=== PATIENT | male | born 1950 | race Caucasian/White ===

== ENCOUNTER 2017-08-06 12:11 | Emergency (ER) | payer MEDICARE ==
[2010-07-08 11:07] VITALS: BMI 21.7
== END 2017-08-06 14:20 | disposition home or self-care (01) ==
LOC: D.ER 12:11
DX: M54.12 Radiculopathy, cervical region (principal)

== ENCOUNTER 2019-07-26 19:14 | Inpatient (IN) | payer MEDICARE, MEDICAID ==
[~2019-07-26] VITALS: Ht 182.9 cm; Wt 77.8 kg
--- NOTE | ~2019-07-26 | HEMODYNAMI ---
PATIENT:VIBHA ZHONG MEDICAL RECORD: [id number] : 54 [id number] ADMISSION DATE: 07/27/19 Generatedon:07/29/201910:38 Patient name: VIBHA ZHONG Patient #: [id number] SSN: [id number] : 1950 Date of study: 07/29/2019 Page: Of Hemodynamic Procedure Report Patient Data Patient Demographics Procedure consent was obtained First Name: VIBHA Gender: Male Last Name: TREVIN : 1950 [facility] Initial: KIMBERLY Age: 69 year(s) Patient #: [id number] Race: SSN: [id number] Additional ID: [id number] Contact details [address]: [address] [place] [address] State: [place] City: [place] Zip code: [address] Past Medical History Performed procedures and imaging results Date Procedure Procedure Results Comments 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 History of disease Date Diagnosis Comments CAD Allergies Allergen Reaction Date Comments Reported Other allergy 07/29/2019 MORPHINE, PCN, LISINOPRIL, HYDROCORTISONE, STATINS Admission Admission Data Admission Date: 07/27/2019 Admission Time: 19:11 Arrival Date: 07/27/2019 Arrival Time: 0:00 Admit Source: Other Insurance Payor: Medicare Room #: D.2114 [facility] #: [id number] Height (in.): 71.65 BSA: 1.98 (m2) Height (cm.): 182 BMI: 23.25 (kg/m2) Weight (lbs.): 169.76 Weight (kg.): 77 Lab Results Lab Result Date: 07/29/2019 Lab Result Time: 0:00 Biochemistry Name Units Result Min Max BUN mg/dl 20 --(----)*- 7 18 Creatinine mg/dl 1.2 --(---*)-- 0.6 1.3 eGFR ml/min 64.72928 *-(----)-- 90 120 NONAFRICAN CBC Name Units Result Min Max Hematocrit % 38.9 *-(----)-- 42 54 Hemoglobin g/dl 12.9 -*(----)-- 13.5 17.5 Procedure Procedure Types Cath Procedure Diagnostic Procedure FFR/IVUS FFR Initial Sedation Charges Moderate Sedation up to 45 minutes PCI Procedure Coronary Stent Coronary Stent Initial Procedure Description Procedure Date Procedure Date: 07/29/2019 Procedure Start Time: 9:45 Procedure End Time: 10:32 Procedure Staff Name Function Dev Conway MD Performing Physician Dee Bonilla RT Monitor Jory Martínez RT Monitor Tia Greco RT Scrub Magdi Davenport RN Nurse Procedure Data Cath Procedure Fluoroscopy Diagnostic fluoroscopy Total fluoroscopy Time: time: 17.1 min 17.1 min Diagnostic fluoroscopy Total fluoroscopy dose: 438 dose: 438 mGy mGy Contrast Material Contrast Material Type Amount (ml) Isovue 300 199 Entry Location Entry Primary Successful Side Size Upsize Upsize Entry Closure Succes sful Closure Location (Fr) 1 (Fr) 2 (Fr) Remarks Device Remarks Femoral Left 7 Fr Exoseal artery Short Estimated blood loss: 10 ml Procedure Complications No complications Procedure Medications Medication Administration Route Dosage Oxygen etCO2 Nasal cannula 2 l/min Lidocaine 2% added to field 20 Heparin Flush Bag added to field 2 bags (1000units/500ml NS) 0.9% NaCl I.V. 100 ml/hr Versed I.V. 1 mg Fentanyl I.V. 50 mcg Versed I.V. 1 mg Heparin Bolus I.V. 4000 units Heparin Bolus I.V. 4000 units Integrilin (Bolus 6.8 ml 2mg/ml) Nitroglycerin IC/IA I.C. 150 mcg Versed I.V. 1 mg Hemodynamics Rest BSA: 1.98 (m2) HGB: 12.9 (g/dl) O2 Consumption: Estimated: 223.06 (ml/min) O2 Co nsumption indexed: Estimated:112.66 (ml/min/m) Heart Rate: 61 (bpm) Snapshots Pre Cath Intra NCS Post Cath Vital Signs Time Heart Resp SPO2 etCO2 NIBP Rhythm Pain Sedation Rate (ipm) (%) (mmHg) (mmHg) Status Level (bpm) 9:29:58 60 17 99 0 116/58(78) NSR 0 (11) 10(A) , No pain 9:34:10 60 17 100 0 98/55(69) NSR 0 (11) 10(A) , No pain 9:38:20 60 18 100 0 100/56(69) NSR 0 (11) 10(A) , No pain 9:42:30 62 13 100 0 116/55(82) NSR 0 (11) 9(A) , No pain 9:46:40 60 13 99 0 105/55(86) NSR 0 (11) 10(A) , No pain 9:50:52 60 13 98 0 114/55(82) NSR 0 (11) 9(A) , No pain 9:55:10 62 14 98 0 105/52(77) NSR 0 (11) 9(A) , No pain 9:59:18 59 15 99 0 100/53(67) NSR 0 (11) 9(A) , No pain 10:03:30 60 15 99 0 109/58(91) NSR 0 (11) 9(A) , No pain 10:07:44 60 15 100 0 108/50(66) NSR 0 (11) 9(A) , No pain 10:11:58 60 17 100 0 91/53(69) NSR 0 (11) 9(A) , No pain 10:16:02 62 20 99 0 98/65(73) NSR 0 (11) 9(A) , No pain 10:20:09 60 15 99 0 102/61(75) NSR 0 (11) 9(A) , No pain 10:24:21 60 35 98 0 96/50(62) NSR 0 (11) 10(A) , No pain 10:28:27 59 32 98 0 96/55(71) NSR 0 (11) 10(A) , No pain 10:32:37 60 27 99 0 85/45(63) NSR 0 (11) 10(A) , No pain Medications Time Medication Route Dose Verified Delivered Reason Notes Effectiveness by by 9:31:33 Oxygen etCO2 2 Dev [place] used for Nasal l/min 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 100 Dev [place] Per physician ml/hr Man Davenport RN 9:38:10 Versed I.V. 1 mg Dev [place] for sedation Man Davenport RN 9:38:16 Fentanyl I.V. 50 Dev [place] for sedation mcg Man Davenport RN 9:46:40 Versed I.V. 1 mg Dev [place] for sedation Man Davenport RN 9:54:43 Heparin Bolus I.V. 4000 Dev [place] for verif ied units Man Davenport RN anticoagulation with dr conway 10:00:30 Versed I.V. 1 mg Dev Méndez for sedation Man Conway MD 10:09:57 Heparin Bolus I.V. 4000 Dev [place] for verif ied units Man Davenport RN anticoagulation with dr conway 10:11:00 Integrilin 6.8 Dev [place]banks waste d (Bolus 2mg/ml) ml Man Davenport RN 3.2 ml of vial 10:12:04 Nitroglycerin I.C. 150 Dev Méndez for IC/IA mcg Man Conway MD vasodilation Procedure Log Time Note 9:10:05 Patient Height : 71.65 inches 9:10:05 Patient Weight : 169.76 lbs 9:10:19 Informed consent obtained and on chart 9:10:48 Procedure Status Urgent Heart Cath (IP). 9:10:50 Magdi Davenport RN sent for patient. Start room use. 9:10:51 Time tracking: Regular hours (M-F 7:00 - 5:00) 9:10:53 Plan of Care:Hemodynamics will remain stable., Cardiac rhythm will remain stable., Comfort level will be maintained., Respiratory function will remain adequate., Patient/ family verbilizes understanding of procedure., Procedure tolerated without complication., Recovers from procedure without complications.. 9:10:56 H&P Date Dictated: 07/29/2019 Within 30 days and on chart.. 9:11:38 Procedure type changed to Cath procedure, Diagnostic procedure, FFR/IVUS, FFR Initial, Sedation Charges, Moderate Sedation up to 45 minutes, PCI procedure, Coronary Stent, Coronary Stent Initial 9:12:48 Lab Result : BUN 20 mg/dl 9:12:48 Lab Result : Creatinine 1.2 mg/dl 9:12:48 Lab Result : eGFR NONAFRICAN 64.58755 ml/min 9:12:48 Lab Result : Hematocrit 38.9 % 9:12:48 Lab Result : Hemoglobin 12.9 g/dl 9:15:59 Stress Test: no; N/A bring Back PCI 9:16:18 Risk of Mortality: <.1 9:16:22 Risk of blood transfusion: .1 9:16:24 Risk of HUSEYIN: 1.1 9:17:32 ACC Patient presents with Stable Angina CCS Anginal Class 3--Marked limitation of physical activity, angina occurs with ordinary activity.. 9:22:22 Patient received from Med II to CCL 1 Alert and oriented. Tansferred to table in Supine position. 9:22:24 Warm blankets applied, and zana hugger turned on for patient comfort. 9:22:24 Correct patient and procedure confirmed by team. 9:22:25 ECG and BP/O2 sat monitors applied to patient. 9:23:19 Pre-procedure instructions explained to patient. 9:23:20 Pre-op teaching completed and patient verbalized understanding. 9:27:02 Family in patients room. 9:27:43 Patient allergic to Other allergyMORPHINE, PCN, LISINOPRIL, HYDROCORTISONE, STATINS 9:27:45 Is the patient allergic to Iodine/contrast media? No. 9:27:58 Is patient on blood thinner?Yes 9:28:01 ACC The patient was administered the following blood thiners within the last 24 hours: ACCPlavix 9:28:06 Patient diabetic? No. 9:28:13 Patient not . Patient is over age 55. 9:28:16 Previous problem with sedation/anesthesia? No ? 9:28:18 Snore? Yes 9:28:19 Sleep apnea? Yes 9:28:21 Deviated septum? No 9:28:51 Vital chart was started 9:30:31 Baseline sample Acquired. 9:30:35 Rhythm: sinus bradycardia 9:30:37 Full Disclosure recording started 9:30:41 Opens mouth fully? Yes 9:30:42 Sticks out tongue? Yes 9:30:55 Airway obstruction? No ? 9:30:57 Dentures? No ? 9:30:59 Pre procedure: left dorsailis pedis pulse 2+ Normal; easily identifiable; not easily obliterated 9:31:03 Patient pain scale 0/10 ?. 9:31:07 IV patent on arrival in left forearm with 0.9% NaCl at [facility]. 9:31:14 Lab results completed and on chart. 9:31:18 Left groin area was prepped with chlora-prep and draped in sterile fashion 9:31:19 Alarms reviewed by R. N. 9:31:19 Sharps counted by scrub and verified by R.N. 9:31:24 Use device set CATH PACK 9:31:25 ACIST Syringe (27830) opened to sterile field. 9:31:25 ACIST Hand Control (67754) opened to sterile field. 9:31:25 ACIST Manifold (94750) opened to sterile field. 9:31:26 Medline Cath Pack ([id number]) opened to sterile field. 9:31:26 Bag Decanter (2002) opened to sterile field. 9:31:26 EMERALD Guide Wire (065-676) opened to sterile field. 9:31:33 Oxygen 2 l/min etCO2 Nasal cannula was administered by Magdi Davenport RN; used for procedure; Verbal order read back and verified. 9:31:40 Lidocaine 2% 20ml vial added to field was administered by Dev Conway MD; for local anesthetic; Verbal order read back and verified. 9:31:45 Heparin Flush Bag (1000units/500ml NS) 2 bags added to field was administered by Dev Conway MD; used for procedure; Verbal order read back and verified. 9:31:56 SHEATH 6FR Cameron (MMH375) opened to sterile field. 9:31:57 CHOICE PT Extra Support 182cm wire ([id number]) opened to sterile field. 9:31:57 INFLATOR Merit BasixCompak (JS4980) opened to sterile field. 9:32:18 0.9% NaCl 100 ml/hr I.V. was administered by Magdi Davenport RN; Per physician; Verbal order read back and verified. 9:35:54 Physician arrived 9:35:55 --------ALL STOP TIME OUT------ 9:36:03 Final Timeout: patient, procedure, and site verified with staff and physician. All members of the team are in agreement. 9:36:07 Left groin site verified by team. 9:36:13 Fire Safety Assessment: A--An alcohol-based skin anteseptic being used preoperatively., C--Open oxygen or nitrous oxide is being used., D--An ESU, laser, or fiber-optic light is being used. 9:36:27 Physical assessment completed. ASA score P 3 - A patient with severe systemic disease as per Dev Conway MD. 9:36:34 2) 60-89 Mildly reduced kidney function, and other findings (as for stage 1) point to kidney disease. 9:36:41 Maximum allowable contrast dose (3.7 X eGFR X 0.75)178 ml. 9:36:48 Sedation plan: IV Moderate Sedation Medication:Versed, Fentanyl 9:38:10 Versed 1 mg I.V. was administered by Magdi Davenport RN; for sedation; Verbal order read back and verified. 9:38:16 Fentanyl 50 mcg I.V. was administered by Magdi Davenport RN; for sedation; Verbal order read back and verified. 9:39:22 Zero performed for pressure channel P1 9:43:00 SHEATH 7FR Cameron (QFE908) opened to sterile field. 9:43:08 GUIDE 7FR AR 2.0 SH catheter ([id number]) opened to sterile field. 9:45:10 Procedure started. 9:45:18 Local anesthetic to left femerol artery with Lidocaine 2% by Dev Conway MD.INITIAL ACCESS ONLY 9:45:45 A 7 Fr Short sheath was inserted into the Left Femoral artery 9:46:28 7 Fr AR2SH guide catheter was inserted over the wire 9:46:40 Versed 1 mg I.V. was administered by Magdi Davenport RN; for sedation; Verbal order read back and verified. 9:47:25 CHOICE PT wire advanced. 9:49:14 Wire removed. 9:49:23 Guide Catheter removed. unable to cannulate vessel. 9:49:52 GUIDE 6FR ALR1-2 catheter ([id number]) opened to sterile field. 9:50:17 6 Fr ALR12 guide catheter was inserted over the wire 9:51:31 Catheter removed. unable to cannulate vessel. 9:52:36 GUIDE 7FR ART 3.5 catheter ([id number]) opened to sterile field. 9:52:53 7 Fr ART3.5 guide catheter was inserted over the wire 9:54:43 Heparin Bolus 4000 units I.V. was administered by Magdi Davenport RN; for anticoagulation; verified with dr conway Verbal order read back and verified. 9:55:01 CHOICE PT wire advanced. 9:55:03 Wire advanced across lesion. 9:56:09 Roosevelt Verrata Plus pressure wire (05438G) opened to sterile field. 9:57:21 FFR/IFR wire advanced. 9:59:25 mRCA lesion measured at 0.88 with IFR 9:59:48 Pre PCI Site: [place] mRCA has 80% stenosis. 10:00:30 Versed 1 mg I.V. was administered by Dev Conway MD; for sedation; Verbal order read back and verified. 10:01:09 The SABINA RX 3.0 x 18 stent ([id number]) was advanced then removed because of failure to cross lesion 10:02:06 Inflate balloon Inflation number: 1 A EUPHORA 3.0 x 15 Balloon ([id number]) was prepped and advanced across the Mid RCA , then inflated to 17 TANYA for 0:10 (min:sec) . 10:02:16 Inflation number: 2 The EUPHORA 3.0 x 15 Balloon ([id number]) was reinflated across the Mid RCA , to 17 TANYA for 0:00 (min:sec) . 10:02:32 Inflation number: 3 The EUPHORA 3.0 x 15 Balloon ([id number]) was reinflated across the Mid RCA , to 21 TANYA for 0:00 (min:sec) . 10:02:56 Inflation number: 4 The EUPHORA 3.0 x 15 Balloon ([id number]) was reinflated across the Mid RCA , to 17 TANYA for 0:00 (min:sec) . 10:03:19 Inflation number: 5 The EUPHORA 3.0 x 15 Balloon ([id number]) was reinflated across the Mid RCA , to 17 TANYA for 0:00 (min:sec) . 10:03:31 Balloon removed over the wire. 10:04:45 The SABINA RX 3.0 x 18 stent ([id number]) was advanced then removed because of failure to cross lesion 10:05:54 Inflation number: 6 The EUPHORA 3.0 x 15 Balloon ([id number]) was reinflated across the Mid RCA , to 17 TANYA for 0:00 (min:sec) . 10:06:06 Inflation number: 7 The EUPHORA 3.0 x 15 Balloon ([id number]) was reinflated across the Mid RCA , to 17 TANYA for 0:00 (min:sec) . 10:06:55 Inflation number: 8 The EUPHORA 3.0 x 15 Balloon ([id number]) was reinflated across the Mid RCA , to 17 TANYA for 0:00 (min:sec) . 10:07:26 Balloon removed over the wire. 10:09:22 The SABINA RX 3.0 x 18 stent ([id number]) was advanced then removed because 10:09:57 Heparin Bolus 4000 units I.V. was administered by Magdi Davenport RN; for anticoagulation; verified with dr conway Verbal order read back and verified. 10:10:40 Inflate balloon Inflation number: 9 A EUPHORA 3.0 x 20 Balloon ([id number]) was prepped and advanced across the Mid RCA , then inflated to 13 TANYA for 0:00 (min:sec) . 10:11:00 Integrilin (Bolus 2mg/ml) 6.8 ml was administered by Magdi Davenport RN; ; wasted 3.2 ml of vial Verbal order read back and verified. 10:11:11 Balloon removed over the wire. 10:12:04 Nitroglycerin IC/IA 150 mcg I.C. was administered by Dev Conway MD; for vasodilation; Verbal order read back and verified. 10:13:41 Place stent Inflation Number: 1 A INTEGRITY RX 3.0 x 18 stent ([id number]) was prepped and advanced across the Prox RCA . The stent was deployed at 21 TANYA for 0:00 (min:sec) . 10:13:58 Stent catheter was removed intact over wire. 10:15:51 The INTEGRITY RX 2.5 x 22 stent ([id number]) was advanced then removed because of failure to cross lesion 10:17:03 Inflation number: 10 The EUPHORA 3.0 x 20 Balloon ([id number]) was reinflated across the Mid RCA , to 21 TANYA for 0:00 (min:sec) . 10:17:24 Inflation number: 11 The EUPHORA 3.0 x 20 Balloon ([id number]) was reinflated across the Mid RCA , to 21 TANYA for 0:00 (min:sec) . 10:17:51 Inflation number: 12 The EUPHORA 3.0 x 20 Balloon ([id number]) was reinflated across the Mid RCA , to 17 TANYA for 0:00 (min:sec) . 10:18:11 Balloon removed over the wire. 10:19:24 Place stent Inflation Number: 2 A INTEGRITY RX 2.5 x 22 stent ([id number]) was prepped and advanced across the Prox RCA . The stent was deployed at 23 TANYA for 0:00 (min:sec) . 10:19:36 Stent catheter was removed intact over wire. 10:21:54 Place stent Inflation Number: 13 A INTEGRITY RX 2.5 x 26 stent ([id number]) was prepped and advanced across the Mid RCA . The stent was deployed at 21 TANYA for 0:10 (min:sec) . 10:22:19 Stent catheter was removed intact over wire. 10:24:42 Place stent Inflation Number: 14 A SABINA RX 3.0 x 18 stent ([id number]) was prepped and advanced across the Mid RCA . The stent was deployed at 17 TANYA for 0:00 (min:sec) . 10:24:57 Stent catheter was removed intact over wire. 10:25:26 EXOSEAL 7Fr (EX700) opened to sterile field. 10:25:37 ACT drawn and resulted at 267 seconds. (normal therapeutic range 180-240 seconds). 10:26:00 Sheath removed intact; hemostasis achieved with Exoseal to the Left Femoral artery. 10:26:04 Procedure ended.(Physican Out) 10:26:25 Contrast amount:Isovue 300 199ml. 10:26:30 Maximum allowable dose exceeded? Yes. 10::43 Fluoroscopy time 17.10 minutes. 10::51 Flurop Dose total: 438 10::51 Fluoroscopy dose: 438 mGy 10:27:02 Dose Area Product 59626 mGy/cm. 10:27:12 Sharps counted by scrub and verified by R.N. 10:27:17 Insertion/operative site no bleeding no hematoma. 10:27:30 Post-op/insertion site Left Femoral artery dressed using a 4 x 4 and Tegaderm. 10:27:47 Post left femerol artery:stable 10:27:53 Post Procedure Pulses reassessed and unchanged 10:27:58 Post-procedure physical assessment completed. ASA score P 3 - A patient with severe systemic disease as per Dev Conway MD. 10:28:02 Post procedure rhythm: unchanged. 10:28:07 Estimated blood loss: 10 ml 10:28:09 Post procedure instruction explained to patient.Patient verbalizes understanding. 10:28:10 Patient needs reinforcement of post procedure teaching. 10:31:34 Procedure and supply charges have been captured, reviewed, submitted and are correct. 10:32:09 Procedure Complication : No complications 10:32:14 Vital chart was stopped 10:32:20 [facility] Findings: MVD- PCI performed (see procedure note) 10:32:22 Operative report dictated upon procedure completion. 10:32:23 See physician's report for complete and final results. 10:32:25 Report given to [facility] II. 10:32:29 Patient transfered to Med II with Bed. 10:32:32 Procedure ended. 10:32:32 Full Disclosure recording stopped 10:32:41 ACC-PCI Only Patient was given prescriptions, or instructed by Dev Conway MD to start/continue the following medications upon discharge: Plavix 10:36:42 End room use (Document Last) 10:37:18 End room use (Document Last) Intervention Summary Intervention Notes Time ActionType Lesion and Equipment Used Action# Pressure Duration Attributes 10:01:09 Discard SABINA RX 3.0 x Stent 18 stent ([id number]) 10:02:06 Inflate Mid RCA EUPHORA 3.0 x 1 17 00:10 balloon 15 Balloon ([id number]) 10:02:16 Reinflate Mid RCA EUPHORA 3.0 x 2 17 00:00 balloon 15 Balloon ([id number]) 10:02:32 Reinflate Mid RCA EUPHORA 3.0 x 3 21 00:00 balloon 15 Balloon ([id number]) 10:02:56 Reinflate Mid RCA EUPHORA 3.0 x 4 17 00:00 balloon 15 Balloon ([id number]) 10:03:19 Reinflate Mid RCA EUPHORA 3.0 x 5 17 00:00 balloon 15 Balloon ([id number]) 10:04:45 Discard SABINA RX 3.0 x Stent 18 stent ([id number]) 10:05:54 Reinflate Mid RCA EUPHORA 3.0 x 6 17 00:00 balloon 15 Balloon ([id number]) 10:06:06 Reinflate Mid RCA EUPHORA 3.0 x 7 17 00:00 balloon 15 Balloon ([id number]) 10:06:55 Reinflate Mid RCA EUPHORA 3.0 x 8 17 00:00 balloon 15 Balloon ([id number]) 10:09:22 Discard SABINA RX 3.0 x Stent 18 stent ([id number]) 10:10:40 Inflate Mid RCA EUPHORA 3.0 x 9 13 00:00 balloon 20 Balloon ([id number]) 10:13:41 Place stent Prox RCA INTEGRITY RX 1 21 00:00 3.0 x 18 stent ([id number]) 10:15:51 Discard INTEGRITY RX Stent 2.5 x 22 stent ([id number]) 10:17:03 Reinflate Mid RCA EUPHORA 3.0 x 10 21 00:00 balloon 20 Balloon ([id number]) 10:17:24 Reinflate Mid RCA EUPHORA 3.0 x 11 21 00:00 balloon 20 Balloon ([id number]) 10:17:51 Reinflate Mid RCA EUPHORA 3.0 x 12 17 00:00 balloon 20 Balloon ([id number]) 10:19:24 Place stent Prox RCA INTEGRITY RX 2 23 00:00 2.5 x 22 stent ([id number]) 10:21:54 Place stent Mid RCA INTEGRITY RX 13 21 00:10 2.5 x 26 stent ([id number]) 10:24:42 Place stent Mid RCA SABINA RX 3.0 x 14 17 00:00 18 stent ([id number]) Device Usage Item Name Manufacture Quantity Catalog Number Hospital Part Current Minimal Lot# / Charge Number Stock Stock Serial# Code ACIST Syringe Acist 1 25640 120833 305455 364557 20 (50554) [place] Scientific ACIST Hand Acist 1 79141 941566 089012 162804 5 Control Medical (37975) Systems Inc ACIST Manifold Acist 1 67753 731027 008914 860439 5 (89327) Medical Systems Inc Medline Cath Medline 1 [id number] 147685 40760 937731 5 Pack ([id number]) Bag Decanter Microtek 1 2001S 487171 64476 894554 5 () Medical Inc. EMERALD Guide Cardinal 1 502-455 061557 047143 544063 5 Wire (502-455) Health SHEATH 6FR Terumo 1 DYF791 863958 276042 438915 40 Cameron (GCZ168) CHOICE PT [place] 1 [id number] 286899 065343 864798 5 Extra Support Scientific 182cm wire ([id number]) INFLATOR Merit Merit 1 KT9708 849385 250796 050918 15 BasixScribeStorm Medical (CN0071) SHEATH 7FR Terumo 1 LRK247 681528 069482 172533 5 Cameron (JOG689) GUIDE 7FR AR Medtronic 1 [id number] 837401 006669 145748 0 2.0 SH catheter ([id number]) GUIDE 6FR Medtronic 1 [id number] 625811 37727 729734 1 ALR1-2 catheter ([id number]) GUIDE 7FR ART [place] 1 [id number] 488621 43385 732341 0 3.5 catheter Scientific ([id number]) Roosevelt Roosevelt 1 [id number] 320784 695842602 657122 5 Verrata Plus pressure wire ([id number]) SABINA RX 3.0 x Medtronic 1 [id number] 619735 0188711 222035 5 [id number] 18 stent ([id number]) EUPHORA 3.0 x Medtronic 1 [id number] 484587 032808 111191 5 [id number] 15 Balloon ([id number]) EUPHORA 3.0 x Medtronic 1 [id number] 037277 059118 018775 5 [id number] 20 Balloon ([id number]) INTEGRITY RX Medtronic 1 [id number] 305218 514403 587996 5 [id number] 3.0 x 18 stent ([id number]) INTEGRITY RX Medtronic 1 [id number] 437429 431627 358402 5 [id number] 2.5 x 22 stent ([id number]) INTEGRITY RX Medtronic 1 [id number] 745344 314016 753534 5 [id number] 2.5 x 26 stent ([id number]) EXOSEAL 7Fr Cardinal 1 EX700 875703 424438 951847 5 (EX700) Health Signature Audit [place] Stage Time Signature Unsigned Intra-Procedure 07/29/2019 Jory 10:37:18 AM Mauricio RT(R) (CV) Intra-Procedure 07/29/2019 Magdi Davenport RN 10:37:48 AM Intra-Procedure 07/29/2019 Dev Conway 10:38:18 AM [place] [id number] [place] [id number]
--- NOTE | ~2019-07-26 | HEMODYNAMI ---
PATIENT:VIBHA ZHONG MEDICAL RECORD: [id number] : 54 LOCATION:[facility] D.2114 [facility]# [id number] ADMISSION DATE: 07/26/19 Generatedon:07/27/201910:08 Patient name: VIBHA ZHONG Patient #: [id number] SSN: [id number] : 1950 Date of study: 07/27/2019 Page: Of Hemodynamic Procedure Report Patient Data Patient Demographics Procedure consent was obtained First Name: VIBHA Gender: Male Last Name: TREVIN : 1950 [facility] Initial: KIMBERLY Age: 69 year(s) Patient #: [id number] Race: Unknown SSN: [id number] Additional ID: [id number] Contact details Address: [address] [place] [address] State: [place] City: [place] Zip code: [address] Admission Admission Data Admission Date: 07/26/2019 Admission Time: 19:52 Arrival Date: 07/27/2019 Arrival Time: 0:00 Admit Source: Other Insurance Payor: Medicare Room #: D.2114 [facility] #: [id number] Height (in.): 71.65 BSA: 1.98 (m2) Height (cm.): 182 BMI: 23.25 (kg/m2) Weight (lbs.): 169.76 Weight (kg.): 77 Lab Results Lab Result Date: 07/27/2019 Lab Result Time: 0:00 Biochemistry Name Units Result Min Max BUN mg/dl 15 --(--*-)-- 7 18 Creatinine mg/dl 1 --(--*-)-- 0.6 1.3 CBC Name Units Result Min Max Hemoglobin g/dl 14 --(*---)-- 13.5 17.5 Procedure Procedure Types Cath Procedure Diagnostic Procedure LHC LHC w/Coronaries w/Grafts FFR/IVUS FFR Initial Sedation Charges Moderate Sedation up to 15 minutes PCI Procedure Coronary Stent Coronary Stent Initial Procedure Description Procedure Date Procedure Date: 07/27/2019 Procedure Start Time: 9:32 Procedure End Time: 10:01 Procedure Staff Name Function Linda Meier RT Monitor Dev Conway MD Performing Physician Mercedes Bhat RT Scrub Rhoda Cuevas RN Nurse Procedure Data Cath Procedure Fluoroscopy Diagnostic fluoroscopy Total fluoroscopy Time: 9.7 time: 9.7 min min Diagnostic fluoroscopy Total fluoroscopy dose: 786 dose: 786 mGy mGy Contrast Material Contrast Material Type Amount (ml) Isovue 300 152 Entry Location Entry Primary Successful Side Size Upsize Upsize Entry Closure Succes sful Closure Location (Fr) 1 (Fr) 2 (Fr) Remarks Device Remarks Femoral Right 6 Fr Exoseal artery Short Estimated blood loss: 5 ml Diagnostic catheters Device Type Used For End Catheter Placement MULTIPACK Pigtail 5 Fr LV Angiography catheter MULTIPACK JL 4.0 5Fr Left Coronary catheter Angiography MULTIPACK 3DRC 5Fr Right Coronary catheter Angiography DIAGNOSTIC AR2 MOD 5 Fr Multi-vessel catheter ([id number]) Angiography Procedure Complications No complications Procedure Medications Medication Administration Route Dosage 0.9% NaCl I.V. 100 ml/hr Oxygen etCO2 Nasal cannula 2 l/min Lidocaine 2% added to field 20 Heparin Flush Bag added to field 2 bags (1000units/500ml NS) Versed I.V. 2 mg Fentanyl I.V. 50 mcg Heparin Bolus I.V. 4000 units Fentanyl I.V. 50 mcg Hemodynamics Rest BSA: 1.98 (m2) HGB: 14 (g/dl) O2 Consumption: Estimated: 233.55 (ml/min) O2 Cons umption indexed: Estimated:117.95 (ml/min/m) Heart Rate: 75 (bpm) Snapshots Pre Cath Intra NCS Post Cath Vital Signs Time Heart Resp SPO2 etCO2 NIBP (mmHg) Rhythm Pain Status Sedation Rate (ipm) (%) (mmHg) Level (bpm) 9:11:10 73 25 97 25.7 Measuring NSR 0 (11) , No 10(A) pain 9:11:36 73 22 97 17.4 163/82(109) NSR 0 (11) , No 10(A) pain 9:15:52 67 18 95 21.2 120/68(94) NSR 0 (11) , No 10(A) pain 9:20:11 65 16 96 33.3 124/65(96) NSR 0 (11) , No 10(A) pain 9:24:29 63 16 96 34.9 136/74(115) NSR 0 (11) , No 10(A) pain 9:28:55 64 18 97 36.4 137/65(99) NSR 0 (11) , No 10(A) pain 9:33:15 66 17 97 45.5 147/74(116) NSR 0 (11) , No 9(A) pain 9:37:37 65 17 100 26.5 147/69(102) NSR 0 (11) , No 9(A) pain 9:42:00 65 18 100 12.8 128/60(99) NSR 2 (11) , 10(A) Uncomfortable 9:46:16 62 17 100 9.1 128/66(102) NSR 0 (11) , No 9(A) pain 9:50:36 61 12 98 37.9 145/73(115) NSR 0 (11) , No 9(A) pain 9:55:00 61 19 99 17.4 148/80(119) NSR 0 (11) , No 10(A) pain 9:59:26 60 30 100 25 161/74(127) NSR 0 (11) , No 10(A) pain Medications Time Medication Route Dose Verified Delivered Reason Notes Effectiveness by by 9:09:30 0.9% NaCl I.V. 100 Dev Rhoda used for ml/hr Man Cuevas pbx inspector 9:09:38 Oxygen etCO2 2 Dev Rhoda used for Nasal l/min Man Cuevas procedure cannula RN 9:09:43 Lidocaine 2% added 20ml Dev Méndez for local to vial Man Conway MD anesthetic field 9:09:48 Heparin Flush added 2 Dev Dev used for Bag to bags Man Conway MD procedure (1000units/500ml field NS) 9:30:49 Versed I.V. 2 mg Dev Rhoda for sedation Man Cuevas RN 9:30:54 Fentanyl I.V. 50 Dev Rhoda for sedation mcg Man Cuevas RN 9:36:40 Heparin Bolus I.V. 4000 Dev Rhoda for verifi ed units Man Cuevas anticoagulation with Dr. PAPA Conway 9:42:56 Fentanyl I.V. 50 Dev Rhoda for sedation [facility] Man Cuevas it program auditor Log Time Note 8:50:55 Mercedes Bhat RT(R) sent for patient. Start room use. 8:51:32 Patient Height : 71.65 inches 8:51:37 Patient Weight : 169.76 lbs 8:51:40 Admit Source: Other 8:51:45 Arrival Date: 07/27/2019 12:00:00 AM 8:53:07 Insurance Payor : Medicare 8:54:57 Lab Result : Hemoglobin 14 g/dl 8:54:57 Lab Result : Creatinine 1 mg/dl 8:54:57 Lab Result : BUN 15 mg/dl 9:00:56 Time tracking: Regular hours (M-F 7:00 - 5:00) 9:01:01 Plan of Care:Hemodynamics will remain stable., Cardiac rhythm will remain stable., Comfort level will be maintained., Respiratory function will remain adequate., Patient/ family verbilizes understanding of procedure., Procedure tolerated without complication., Recovers from procedure without complications.. 9:01:08 Patient received from IT'SUGAR II to CCL 1 Alert and oriented. Tansferred to table in Supine position. 9:01:09 Warm blankets applied, and zana hugger turned on for patient comfort. 9:01:11 Signed procedure consent form obtained from patient. 9:01:13 ECG and BP/O2 sat monitors applied to patient. 9:01:13 Correct patient and procedure confirmed by team. 9:09:21 Vital chart was started 9:09:30 0.9% NaCl 100 ml/hr I.V. was administered by Rhoda Cuevas RN; used for procedure; Verbal order read back and verified. 9:09:38 Oxygen 2 l/min etCO2 Nasal cannula was administered by Rhoda Cuevas RN; used for procedure; Verbal order read back and verified. 9:09:43 Lidocaine 2% 20ml vial added to field was administered by Dev Conway MD; for local anesthetic; Verbal order read back and verified. 9:09:48 Heparin Flush Bag (1000units/500ml NS) 2 bags added to field was administered by Dev Conway MD; used for procedure; Verbal order read back and verified. 9:09:58 Baseline sample Acquired. 9:10:11 Rhythm: sinus rhythm 9:10:13 Full Disclosure recording started 9:10:18 H&P Date Dictated: 07/27/2019 ER History on chart., New H&P dictated by physician.. 9:10:20 Pre-op teaching completed and patient verbalized understanding. 9:10:20 Pre-procedure instructions explained to patient. 9:10:28 Family unavailable. 9:10:29 Patient NPO since Midnight. 9:10:32 Is the patient allergic to Iodine/contrast media? No. 9:10:33 Was the patient premedicated? No 9:10:34 Is patient on blood thinner?Yes 9:10:38 ACC The patient was administered the following blood thiners within the last 24 hours: ACCPlavix 9:10:40 Patient diabetic? No. 9:10:43 Previous problem with sedation/anesthesia? No ? 9:10:45 Snore? Yes 9:10:46 Sleep apnea? Yes 9:10:48 Opens mouth fully? Yes 9:10:48 Deviated septum? No 9:10:50 Sticks out tongue? Yes 9:10:53 Airway obstruction? No ? 9:11:01 Dentures? No ? 9:11:05 Pre procedure: right dorsailis pedis pulse 2+ Normal; easily identifiable; not easily obliterated 9:11:08 Pre procedure: left dorsailis pedis pulse 2+ Normal; easily identifiable; not easily obliterated 9:11:12 Patient pain scale 0/10 ?. 9:11:19 IV patent on arrival in left forearm with 0.9% NaCl at KVO. 9:11:24 Lab results completed and on chart. 9:11:29 Stress Test: no; N/A ? 9:11:33 Risk of Mortality: 1.3 9:11:37 Risk of blood transfusion: 0.2 9:11:41 Risk of HUSEYIN: 3.2 9:11:46 Right groin area was prepped with chlora-prep and draped in sterile fashion 9:11:47 Sharps counted by scrub and verified by R.N. 9:11:47 Alarms reviewed by R. N. 9:16:12 2) 60-89 Mildly reduced kidney function, and other findings (as for stage 1) point to kidney disease. 9:18:06 Maximum allowable contrast dose (3.7 X eGFR X 0.75)219 ml. 9:20:19 Physician paged 9:23:37 Zero performed for pressure channel P1 9:24:18 Zero performed for pressure channel P1 9::34 --------ALL STOP TIME OUT------ 9::34 Physician arrived 9::35 Final Timeout: patient, procedure, and site verified with staff and physician. All members of the team are in agreement. 9::37 Right groin site verified by team. 9:29:41 Fire Safety Assessment: A--An alcohol-based skin anteseptic being used preoperatively., C--Open oxygen or nitrous oxide is being used., D--An ESU, laser, or fiber-optic light is being used. 9:29:45 Physical assessment completed. ASA score P 2 - A patient with mild systemic disease as per Dev Conway MD. 9:29:49 Sedation plan: IV Moderate Sedation Medication:Versed, Fentanyl 9:29:58 Use device set Femoral Dx 9:29:59 ACIST Syringe (78901) opened to sterile field. 9:30:00 Medline Cath Pack ([id number]) opened to sterile field. 9:30:00 Bag Decanter (2002S) opened to sterile field. 9:30:02 ACIST Manifold (09098) opened to sterile field. 9:30:02 ACIST Hand Control (36954) opened to sterile field. 9:30:03 Tegaderm 4 x 4 (1626W) opened to sterile field. 9:30:03 DIAGNOSTIC Multipack 5Fr catheter set (AE7078) opened to sterile field. 9:30:05 EMERALD Guide Wire (635-830) opened to sterile field. 9:30:49 Versed 2 mg I.V. was administered by Rhoda Cuevas RN; for sedation; Verbal order read back and verified. 9:30:54 Fentanyl 50 mcg I.V. was administered by Rhoda Cuevas RN; for sedation; Verbal order read back and verified. 9:32:01 PCI Cath status Urgent 9:32:04 Procedure started. 9:32:09 Local anesthetic to right femoral artery with Lidocaine 2% by Dev Conway MD.INITIAL ACCESS ONLY 9:32:47 A 6 Fr Short sheath was inserted into the Right Femoral artery 9:33:06 A MULTIPACK Pigtail 5 Fr catheter was advanced over the wire and used for LV Angiography. 9:33:28 LV hemodynamics recorded. 9:33:29 LV gram done using MORIN 9:33:34 EF : 50 % 9:34:17 Catheter removed. 9:34:22 A MULTIPACK JL 4.0 5Fr catheter was advanced over the wire and used for Left Coronary Angiography. 9:34:42 LCA angiography performed. 9:34:49 Injector settings: Ml/sec: 3, Volume: 6, 9:35:19 Catheter removed. 9:35:25 A MULTIPACK 3DRC 5Fr catheter was advanced over the wire and used for Right Coronary Angiography. 9:35:46 INFLATOR Merit BasixCompak (PA2522) opened to sterile field. 9:35:47 CHOICE PT Extra Support 182cm wire ([id number]) opened to sterile field. 9:35:57 SHEATH 6FR Sulligent (WBT772) opened to sterile field. 9:36:15 ZHOU angiography performed. 9:36:40 Heparin Bolus 4000 units I.V. was administered by Rhoda Cuevas RN; for anticoagulation; verified with Dr. Conway Verbal order read back and verified. 9:36:53 RCA angiography performed. 9:37:01 Injector settings: Ml/sec: 3, Volume: 6, 9:37:48 Catheter removed. 9:38:02 A DIAGNOSTIC AR2 MOD 5 Fr catheter ([id number]) was advanced over the wire and used for Multi-vessel Angiography. 9:39:05 SVG to Circ angiography performed. 9:40:55 ACCDominant side:Co-Dominant 9:41:36 [place] Verrata Plus pressure wire (92615D) opened to sterile field. 9:41:36 GUIDE 6FR AR 2.0 catheter ([id number]) opened to sterile field. 9:41:43 Catheter removed. 9:41:47 Proceeding to intervention. 9:42:56 Fentanyl 50 mcg I.V. was administered by Rhoda Cuevas RN; for sedation; Verbal order read back and verified. 9:43:34 6 Fr ar 2 guide catheter was inserted over the wire 9:44:20 FFR/IFR wire advanced. 9:44:39 Baseline FFR 1. 9:46:23 Wire removed. unable to get back-up support 9:46:30 Guide Catheter removed. unable to get back-up support 9:46:51 GUIDE 6FR ART 4.0 catheter ([id number]) opened to sterile field. 9:47:01 6 Fr art 4 guide catheter was inserted over the wire 9:49:40 FFR/IFR wire advanced. 9:49:45 Baseline FFR 1. 9:50:02 mCirc lesion measured at 0.92 with IFR 9:50:13 Guide catheter removed. 9:50:13 Wire removed. 9:50:42 GUIDE 6FR XB 3.5 SH catheter ([id number]) opened to sterile field. 9:51:02 6 Fr xb 3.5 sh guide catheter was inserted over the wire 9:51:10 choice pt wire advanced. 9:51:29 Pre PCI Site: [place] LMCA has 90% stenosis. 9:51:31 ACC Pre-intervention LEONOR Flow is 2. 9:54:35 Place stent Inflation Number: 1 A SABINA RX 3.0 x 08 stent ([id number]) was prepped and advanced across the LMCA 90. The stent was deployed at 19 TANYA for 0:10 (min:sec) 0. 9:54:40 ACT drawn and resulted at 228 seconds. (normal therapeutic range 180-240 seconds). 9:56:07 ACC Pre-intervention LEONOR Flow is 3. 9:56:15 Post PCI Site: [place] LMCA has 0% stenosis. 9:56:51 Stent catheter was removed intact over wire. 9:56:52 Wire removed. 9:56:58 Guide catheter removed. 9:57:06 EXOSEAL 6Fr (EX600) opened to sterile field. 9:57:29 Sheath removed intact; hemostasis achieved with Exoseal to the Right Femoral artery. 9:58:40 Procedure ended.(Physican Out) 9:58:46 Fluoroscopy time 09.70 minutes. 9:58:55 Fluoroscopy dose: 786 mGy 9:58:55 Flurop Dose total: 786 9:59:05 Dose Area Product 58415 mGy/cm. 9:59:28 Contrast amount:Isovue 300 152ml. 9:59:31 Maximum allowable dose exceeded? No. 9:59:32 Sharps counted by scrub and verified by R.N. 9:59:33 Insertion/operative site no bleeding no hematoma. 9:59:36 Post-op/insertion site Right Femoral artery dressed using a 4 x 4 and Tegaderm. 9:59:37 Post Procedure Pulses reassessed and unchanged 9:59:41 Post procedure rhythm: unchanged. 9:59:43 Estimated blood loss: 5 ml 10:00:38 Post procedure instruction explained to patient.Patient verbalizes understanding. 10:00:39 Patient needs reinforcement of post procedure teaching. 10:01:15 Procedure type changed to Cath procedure, Diagnostic procedure, LHC, LHC w/Coronaries w/Grafts, FFR/IVUS, FFR Initial, Sedation Charges, Moderate Sedation up to 15 minutes, PCI procedure, Coronary Stent, Coronary Stent Initial 10:01:16 Procedure and supply charges have been captured, reviewed, submitted and are correct. 10:01:22 Procedure Complication : No complications 10:01:25 Vital chart was stopped 10:01:29 [facility] Findings: MVD- PCI performed (see procedure note) 10:01:31 Operative report dictated upon procedure completion. 10:01:32 See physician's report for complete and final results. 10:01:34 Report given to Med II. 10:01:36 Patient transfered to Med II with Stretcher. 10:01:38 Full Disclosure recording stopped 10:01:38 Procedure ended. 10:01:45 ACC-PCI Only Patient was given prescriptions, or instructed by Dev Conway MD to start/continue the following medications upon discharge: Plavix 10:01:47 End room use (Document Last) Intervention Summary Intervention Notes Time ActionType Lesion and Equipment Used Action# Pressure Duration Attributes 9:54:35 Place stent LMCA SABINA RX 3.0 x 1 19 00:10 08 stent ([id number]) Device Usage Item Name Manufacture Quantity Catalog Number Hospital Part Current Minimal Lot# / Charge Number Stock Stock Serial# Code ACIST Syringe Acist 1 19953 952585 131721 740248 20 (92754) Medical Systems Inc Bag Decanter Microtek 1 086942 07071 143341 5 () Medical Inc. Medline Cath Medline 1 [id number] 620277 80068 078588 5 Pack ([id number]) ACIST Hand Acist 1 35916 286063 113263 334248 5 Control Medical (01807) Systems Inc ACIST Manifold Acist 1 94073 369958 517705 425166 5 (44680) Medical Systems Inc DIAGNOSTIC Cardinal 1 [id number] 122858 98201 344547 30 Multipack 5Fr Health catheter set (BD7553) Tegaderm 4 x 4 3M 1 1626W 395838 590802 913796 5 (1626W) EMERALD Guide Cardinal 1 502-455 865255 797825 267448 5 Wire (502-455) Health MULTIPACK Cardinal 1 979543 5 Pigtail 5 Fr Health catheter MULTIPACK JL Cardinal 1 305415 5 4.0 5Fr Health catheter MULTIPACK 3DRC Cardinal 1 811507 5 5Fr catheter Health INFLATOR Merit Merit 1 OY3520 321549 946648 263792 15 Boundless (WG2711) CHOICE PT [place] 1 [id number] 431465 621603 128248 5 Extra Support Scientific 182cm wire ([id number]) SHEATH 6FR Terumo 1 EPY835 190530 022978 223320 40 Sulligent (JKS176) DIAGNOSTIC AR2 Cardinal 1 [id number] 266629 732555 750147 20 MOD 5 Fr Health catheter (366571K) GUIDE 6FR AR Medtronic 1 [id number] 832861 33758 589701 1 2.0 catheter (IU5HC11) [place] 1 65350X 303269 716323139 134479 5 Verrata Plus pressure wire (68924U) GUIDE 6FR ART [place] 1 [id number] 755503 101295 302157 0 4.0 catheter Scientific (200819181) GUIDE 6FR XB Cardinal 1 [id number] 055808 167522 580557 2 3.5 SH Health catheter (98698084) SABINA RX 3.0 x Medtronic 1 [id number] 338323 3021451 763319 5 [id number] 08 stent ([id number]) EXOSEAL 6Fr Cardinal 1 EX600 179176 943281 765092 10 (EX600) Health Signature Audit [place] Stage Time Signature Unsigned Intra-Procedure 07/27/2019 Linda Meier 10:07:00 AM RT(R) Intra-Procedure 07/27/2019 Rhoda Cuevas 10:08:20 AM RN Intra-Procedure 07/27/2019 Dev Conway 10:08:55 AM [place] [address] [place] [address]
[2019-07-26 19:41] LABS: BASOPHILS 0.4 % (0-2); EOSINOPHILS 8.7 % (0-7); HEMATOCRIT 40.6 % (42.0-54.0); IMMATURE GRANULOCYTES 0.2 % (0-5); LYMPHOCYTES 8.9 % (15-50); MCH 30.9 pg (26.0-34.0); MCHC 34.5 g/dL (31.0-37.0); MCV 89.6 fL (80.0-100.0); MEAN PLATELET VOLUME 8.3 fL (7.4-10.4); MONOCYTES 8.1 % (2-11); NEUTROPHILS 73.7 % (40-80); RBC 4.53 10x6/uL (4.20-6.10); RDW 12.6 % (11.5-14.5); WBC 12.4 10x3/uL (4.8-10.8)
[2019-07-26 19:43] LABS: PLATELET COUNT 194 10x3/uL (130-400)
[2019-07-26 19:51] LABS: CALC OSMOLALITY 252 mosm/kg (275-300); CALCIUM 8.7 mg/dL (8.5-10.1); CARBON DIOXIDE 22.7 mmol/L (21.0-32.0); CHLORIDE - SERUM 91 mmol/L (98-107); GLUCOSE 99 mg/dL (74-106); POTASSIUM - SERUM 4.4 mmol/L (3.5-5.1); SODIUM 125 mmol/L (136-145); UREA NITROGEN 15 mg/dL (7-18); eGFR NON AFRICAN AMERICAN 79 mL/min (90-120)
[2019-07-26 20:02] LABS: APPEARANCE CLEAR (CLEAR); BILIRUBIN NEGATIVE (NEGATIVE); COLOR YELLOW (YELLOW); GLUCOSE NEGATIVE (NEGATIVE); KETONE NEGATIVE (NEGATIVE); NITRITE NEGATIVE (NEGATIVE); PROTEIN NEGATIVE (NEGATIVE); UROBILINOGEN NORMAL (NORMAL)
[2019-07-26 20:06] LABS: ALBUMIN 3.7 g/dL (3.4-5.0); ALKALINE PHOSPHATASE 188 U/L (46-116); ALT (SGPT) 30 U/L (10-68); BILIRUBIN - TOTAL 0.43 mg/dL (0.2-1.3); LIPASE 140 U/L (73-393); MAGNESIUM - SERUM 1.8 mg/dL (1.8-2.4); PRO BNP 789 pg/mL (0-125); PROTEIN - SERUM 8.2 g/dL (6.4-8.2); THYROID STIMULATING HORMONE 4.04 uIU/mL (0.36-3.74); TROPONIN-I 0.043 ng/mL (0.000-0.060)
[2019-07-26 20:16] LABS: UDS - AMPHET NEGATIVE QUAL (NEGATIVE); UDS - BARB NEGATIVE QUAL (NEGATIVE); UDS - BENZO NEGATIVE QUAL (NEGATIVE); UDS - COCAINE NEGATIVE QUAL (NEGATIVE); UDS - OPIATE NEGATIVE QUAL (NEGATIVE); UDS - PCP NEGATIVE QUAL (NEGATIVE); UDS - THC NEGATIVE QUAL (NEGATIVE)
--- NOTE | 2019-07-26 20:17 | NUR ---
PT GIVEN WATER TO DRINK, DENIES ANY FURTHER NEEDS AT THIS TIME. CALL LIGHT WITHIN REACH, WILL CONTINUE TO MONITOR.
[2019-07-27] VITALS (7 sets, daily range): BP systolic 117–176; BP diastolic 64–96; BMI 23.1
--- NOTE | 2019-07-27 00:38 | NUR ---
RECIEVED REPORT FROM ER. BROUGHT TO FLOOR IN W/C. ALERT AND ORIENTED X4. UP AD ZORAIDA. DENIES ANY PAIN AT THIS TIME. PACEMAKER TO RIGHT CHEST. 02 @2 LITERS PER N/C IN PLACE. IV TO LEFT AC SL. TELEMETRY 58 SR WITH BBB. C/O SEVERE HEAD ACHE EARLIER. CALLED DR. NEELY WITH NEW ORDER FOR NORCO .PT STATES THATS WHAT HE NORMALLY TAKES FROM PAIN CLINIC. REPORTED RELIEF. DENIES ANY OTHER NEEDS AT THIS TIME.
[2019-07-27] MEDS ORDERED: NORVASC10 MG PO (00:46)
[2019-07-27] MEDS ORDERED: COREG25 MG PO (00:47)
[2019-07-27] MEDS ORDERED: ASPIRIN81 MG PO (00:47)
[2019-07-27] MEDS ORDERED: PLAVIX75 MG PO (00:47)
[2019-07-27] MEDS ORDERED: ZETIA10 MG PO (00:49)
[2019-07-27] MEDS ORDERED: HYDROCODON-ACE1 EA10 PO (00:50)
[2019-07-27] MEDS ORDERED: ANORO ELLIPTA1 EACH INH (00:51)
[2019-07-27] MEDS ORDERED: ALBUTEROL SULF8.5 GM INH (00:51)
--- NOTE | 2019-07-27 08:55 | NUR ---
PRE OP GIVEN FOR CATH
--- NOTE | 2019-07-27 10:43 | NUR ---
BACK FROM RELATIONSHIP EXECUTIVE. SEDATED BUT RESPONDS TO NAME. TELEMERTY SHOWS SR 60. RIGHT GROIN SOFT WITH DRSG DRY AND INTACT. PPP. WILL MONITOR
--- NOTE | 2019-07-27 17:27 | NUR ---
LYING QUIETLY. DENIES ANY NEEDS. RIGHT GROIN SOFT WITH DRSG DRY AND INTACT
--- NOTE | 2019-07-27 17:29 | MORECARE ---
CASE MANAGEMENT DISCHARGE SUMMARY PATIENT: VIBHA ZHONG UNIT: [id number] ADM DATE: 07/26/19 AGE: 69 : 52 SEX: M ROOM/BED: D.2114 AUTHOR: KATHRYN CÁRDENAS PHYSICIAN: REFERRING PHYSICIAN: GURWINDER NEELY MD DATE OF SERVICE: 07/27/19 Discharge Plan Patient Name: VIBHA ZHOGN [facility] [facility] 1950 Planned Disposition: Anticipated Discharge Date: Discharge Date: Expected LOS: Initial Reviewer: [email or web address] Initial Review Date: 07/26/2019 Generated: 07/27/19 6:28 pm External Providers External Provider: OTHER-OTHER Next Contact Date: Service Request Date: Service Type: Resolution: Reviewer: Comments: Patient Name: VIBHA ZHONG Page [phone] at 1729 All edits/amendments must be made on the electronic document DICTATION DATE: 07/27/191727 INTERPRETER TRANSLATOR: CHERY 07/27/191727 RPT#: [id number] DC DATE: STATUS: ADM IN [facility] [address] [place] [address] END OF REPORT
--- NOTE | 2019-07-27 19:06 | NUR ---
RECIEVED BEDSIDE SHIFT REPORT. ALERT AND ORIENTED X4. UP AD ZORAIDA TO B/R. IV TO LEFT AC. PACEMAKER TO RIGHT CHEST AND TELEMETRY IN PLACE. DSG TO JAELYN ROBLERO. DENIES ANY NEEDS A THIS TIME.
[2019-07-28 04:05] VITALS: BP 124/69
--- NOTE | 2019-07-28 07:55 | NUR ---
ALERT AND ORIENTED. C/O PAIN AND COUGHING. TREATED WITH NORCO AND GUIFENSIN COUGHT SYRUP. TELEMERTY SHOWS SR 63. PACER TO RIGHT CHEST. RIGHT GROIN DRSG DRY AND INTACT. UP AB ZORAIDA.LEFT AC SL. WILL MONITOR
[2019-07-28 08:08] VITALS: BP 148/73
[2019-07-28 09:55] LABS: BASOPHILS 0.3 % (0-2); EOSINOPHILS 4.6 % (0-7); HEMATOCRIT 38.9 % (42.0-54.0); HEMOGLOBIN 12.9 g/dL (13.5-17.5); IMMATURE GRANULOCYTES 0.1 % (0-5); LYMPHOCYTES 14.8 % (15-50); MCH 30.6 pg (26.0-34.0); MCHC 33.2 g/dL (31.0-37.0); MEAN PLATELET VOLUME 8.4 fL (7.4-10.4); MONOCYTES 10.1 % (2-11); NEUTROPHILS 70.1 % (40-80); PLATELET COUNT 177 10x3/uL (130-400); RBC 4.21 10x6/uL (4.20-6.10); RDW 12.9 % (11.5-14.5)
[2019-07-28 09:56] LABS: MCV 92.4 fL (80.0-100.0); WBC 7.8 10x3/uL (4.8-10.8)
[2019-07-28 10:07] LABS: ANION GAP 7.8 mmol/L (8-16); CALCIUM 8.4 mg/dL (8.5-10.1); CREATININE - SERUM 1.2 mg/dL (0.6-1.3); POTASSIUM - SERUM 4.6 mmol/L (3.5-5.1)
[2019-07-28 10:08] LABS: CARBON DIOXIDE 30.8 mmol/L (21.0-32.0)
[2019-07-28 11:44] VITALS: BP 137/68
[2019-07-28 16:27] VITALS: BP 147/76
--- NOTE | 2019-07-28 17:07 | NUR ---
I have reviewed this patient and I concur with the Shift Assessment completed by the Licensed Practical Nurse today this shift.
--- NOTE | 2019-07-28 19:04 | NUR ---
RECIEVED BEDSIDE SHIFT REPORT. ALERT AND ORIETNED X4. WEARING O2 PER N/C. VERY SOB. ASKED HIM TO PUT HIS BIPAP ON AND HE SAID IN A LITTLE WHILE. USING AXILLARY MUSCLES TO BREATH AND VERY SOB. IV TO LEFT AC SL.. PACEMAKER TO RIGHT CHEST AND DSG TO RIGHT GROIN CDI. DENIES ANY OTHER NEEDS AT THIS TIME.
[2019-07-28 20:20] VITALS: BP 175/79
[2019-07-29 00:37] VITALS: BP 110/76
--- NOTE | 2019-07-29 00:41 | NUR ---
RESTING IN BED WITH EYES CLOSED. CPAP IN PLACE. RESP EVEN AND UNLABORED AT THIS TIME.
[2019-07-29 04:30] VITALS: BP 188/90
[2019-07-29 07:57] VITALS: BP 144/69
--- NOTE | 2019-07-29 09:17 | NUR ---
PRE-OPS GIVEN. TO MANAGER ANALYSIS BY BED.
--- NOTE | 2019-07-29 10:55 | NUR ---
BACK FROM SPECIALIST MANAGERS. VS WNL. LEFT GROIN STABLE WITHOUT BLEEDING OR HEMAYOMA NOTED. WILL MONITOR.
[2019-07-29 11:37] VITALS: BP 108/69
[2019-07-29 12:28] VITALS: Ht 182.9 cm; Wt 77.8 kg
[2019-07-29 13:28] LABS: BASOPHILS 0.3 % (0-2); EOSINOPHILS 3.7 % (0-7); HEMATOCRIT 33.8 % (42.0-54.0); HEMOGLOBIN 11.1 g/dL (13.5-17.5); IMMATURE GRANULOCYTES 0.2 % (0-5); MCH 30.1 pg (26.0-34.0); MCHC 32.8 g/dL (31.0-37.0); MCV 91.6 fL (80.0-100.0); MEAN PLATELET VOLUME 8.8 fL (7.4-10.4); MONOCYTES 11.5 % (2-11); NEUTROPHILS 66.3 % (40-80); PLATELET COUNT 146 10x3/uL (130-400); RBC 3.69 10x6/uL (4.20-6.10); RDW 12.8 % (11.5-14.5); WBC 6.4 10x3/uL (4.8-10.8)
[2019-07-29 13:48] LABS: ANION GAP 10.3 mmol/L (8-16); CALCIUM 7.9 mg/dL (8.5-10.1); CHOL - HDL RATIO 3.2 ratio (2.3-4.9); CREATININE - SERUM 1.2 mg/dL (0.6-1.3); LDL-HDL RATIO 1.9 ratio (1.5-3.5)
[2019-07-29 13:49] LABS: POTASSIUM - SERUM 5.3 mmol/L (3.5-5.1)
--- NOTE | 2019-07-29 13:50 | NUR ---
BED REST UP. GROIN STABLE.
[2019-07-29 15:31] VITALS: BP 115/60
[2019-07-29 20:41] VITALS: BP 146/73
[2019-07-30 00:58] VITALS: BP 134/78
[2019-07-30 04:49] VITALS: BP 132/67
[2019-07-30 06:16] LABS: BASOPHILS 0.3 % (0-2); HEMATOCRIT 32.7 % (42.0-54.0); HEMOGLOBIN 10.7 g/dL (13.5-17.5); IMMATURE GRANULOCYTES 0.3 % (0-5); LYMPHOCYTES 11.8 % (15-50); MCH 30.2 pg (26.0-34.0); MCHC 32.7 g/dL (31.0-37.0); MCV 92.4 fL (80.0-100.0); MEAN PLATELET VOLUME 8.9 fL (7.4-10.4); MONOCYTES 7.4 % (2-11); NEUTROPHILS 74.2 % (40-80); PLATELET COUNT 171 10x3/uL (130-400); RBC 3.54 10x6/uL (4.20-6.10); RDW 12.5 % (11.5-14.5)
[2019-07-30 06:26] LABS: WBC 11.6 10x3/uL (4.8-10.8)
[2019-07-30 06:28] LABS: ANION GAP 9.3 mmol/L (8-16); CALCIUM 8.3 mg/dL (8.5-10.1); CARBON DIOXIDE 30.1 mmol/L (21.0-32.0); CREATININE - SERUM 1.3 mg/dL (0.6-1.3)
[2019-07-30 06:35] LABS: POTASSIUM - SERUM 4.4 mmol/L (3.5-5.1)
[2019-07-30 09:14] VITALS: BP 160/77
--- NOTE | 2019-07-30 13:30 | NUR ---
IV RESTARTED TO RIGHT ARM WITH 22 GAUGE CATH X 1 STICK AND FLUSHED WITH NS. LINE IS PATENT.
--- NOTE | 2019-07-30 14:17 | NUR ---
GOWN AND LINEN CHANGED. ASSISTED UP TO AMBLATE ON 02 4L NC. SOB NOTED ON EXERTION. WILL CONT. TO MONITOR.
[2019-07-30 15:22] VITALS: BP 116/69
[2019-07-30 15:27] VITALS: BP 117/31
--- NOTE | 2019-07-30 19:00 | NUR ---
RECEIVED BEDSIDE REPORT. PATIENT IS ALERT AND ORIENTED RESTING COMFORTABLY IN BED. RESPIRATIONS ARE EVEN AND UNLABORED. PATIENT REMAINS ON 4L NC. NO S/S OF DISTRESS. NO C/O PAIN. CALL LIGHT WITHIN REACH. WILL CPOC.
[2019-07-30 20:00] VITALS: BP 112/42
[2019-07-31] VITALS: BP 134/54
[2019-07-31 04:00] VITALS: BP 142/68
[2019-07-31 08:00] VITALS: BP 152/54
--- NOTE | 2019-07-31 11:07 | NUR ---
TELEMETRY PACED. RESP UL ON 02 4L NC. UP IN CHAIR WITH CALL LIGHT IN REACH. WILL CONT. PLAN OF CARE.
[2019-07-31 11:36] VITALS: BP 115/50
--- NOTE | 2019-07-31 14:07 | HP ---
PATIENT: VIBHA ZHONG MEDICAL RECORD: [id number] ACCOUNT: [id number] LOCATION:[address] : 54 ADMISSION DATE: 07/27/19 PCP: SAMEERA MIXON MD HISTORY AND PHYSICAL EXAMINATION ADMITTING DIAGNOSES: 1. Unstable angina. 2. Coronary artery disease. 3. Status post coronary artery bypass graft surgery. 4. Status post recent cardiac catheterization with 80% stenosis, not fixed. 5. Hypertension. 6. Hyperlipidemia. 7. Chronic obstructive pulmonary disease. 8. Past smoking history. 9. Bronchitis. HISTORY OF PRESENT ILLNESS: Mr. Zhong presents with increasing episodes of chest pain, class IV angina with rest pain. He has a cardiac history of bypass surgery in 2003, four stents since then. He underwent cardiac catheterization a week and a half ago at [facility]. He was told by Dr. Lee that he has an 80% stenosis and that it would be fixed in the future. Why it was not fixed then, we do not know. He has continued to have chest pain compatible with typical anginal pain with a dull aching, heavy elephant like sensation on his anterior chest that has progressed. He is having episodes of rest pain. As an aside, he also has had cough with sputum production, has not been placed on any antibiotics. He does have a history of COPD. His sputum production is overall minimal yellow tinged. He has not been febrile. His troponin is increasing. He continues to have episodes of pain. PHYSICAL EXAMINATION: CONSTITUTIONAL/GENERAL APPEARANCE: Well nourished, well developed, appears stated age. EYES: Lids and conjunctivae noninjected. No discharge. No pallor. ENT: Lips within normal limit. No cyanosis. No pallor. NECK: Carotid arteries, bilateral normal upstroke. No bruits. No thrills. No jugular venous pressure or distention. CERVICAL LYMPH NODES: Nontender. Nonenlarged. THYROID: Not enlarged. No nodules. CARDIOVASCULAR: Precordial exam, nondisplaced. No heaves or pericardial thrills. Rate and rhythm, regular. Heart sounds, normal S1, normal S2. No S3, no gallop, no rub. Systolic murmur, not heard. Diastolic murmur, not heard. RESPIRATORY: Respiratory effort, unlabored. Normal curvature. No thoracic deformity. No chest wall tenderness. Percussion, resonant. Auscultation, clear. No wheezes, no rales, no rhonchi. ABDOMEN: Soft, nondistended, nontender. No abdominal pain, no vomiting and normal appetite. MUSCULOSKELETAL: No joint tenderness, normal gait, normal tone. SKIN: Warm and dry. OVERALL IMPRESSION: Unstable angina class IV in a patient with a past history of coronary artery disease, stenting and known 80% stenosis. We will proceed with coronary angiography. Further care depends upon findings of the angiography. TRANSINT:[id number] Voice Confirmation ID: [id number] DOCUMENT ID: [id number] HISTORY AND PHYSICAL [id number] VIBHA ZHONG, GURWINDER RICKETTS at 1407 CC: [id number] DICTATION DATE: 07/27/19840 SUPERVISOR C[employer] HOUSE: 07/27/19 0903 ADM IN [facility] [address] [place] [address]
--- NOTE | 2019-07-31 14:07 | OP ---
PATIENT NAME: VIBHA ZHONG MEDICAL RECORD: [id number] :54 LOCATION:D.M2 D.2114 ADMISSION DATE:07/27/19 SURGEON: GURWINDER NEELY MD DATE OF OPERATION: 07/27/2019 PROCEDURES: 1. PTCA and stent of left main. 2. Left heart catheterization. 3. Selective coronary angiography. 4. Vein graft angiography. 5. ZHOU angiography. 6. IFR. 7. Left ventriculogram. INDICATIONS: Unstable angina and coronary artery disease. PROCEDURE PERFORMED: After informed consent was obtained and detailed explanation of risks, benefits as well as alternative therapies, the patient elected to proceed with angiogram and angioplasty. The right femoral area was prepped and draped in normal sterile fashion. Right femoral artery was cannulated via modified Seldinger technique with placement of 6-Syriac sheath. All catheters exchanged through this sheath. FINDINGS: Left ventriculogram was performed in standard 30-degree MORIN view, reveals preserved cardiac wall motion, ejection fraction 50% to 55%. SELECTIVE CORONARY ANGIOGRAPHY: 1. Left main is 90% stenosed. This leads into a left circumflex that is nongrafted. 2. The obtuse marginal of circumflex is totally occluded. 3. Vein graft to the circumflex obtuse marginal is widely patent. There is a previously placed stent. There was questionable area of restenosis; however, IFR was normal at 0.96. 4. Left anterior descending is totally occluded. 5. ZHOU to the LAD is widely patent. Distal LAD is widely patent. 6. The right coronary has 80% to 85% stenosis in the mid vessel. There is a previously placed stent proximally not allowing good apposition for any catheter to engage this. 7. Vein graft to the RCA is closed. PTCA AND STENT OF THE LEFT MAIN: Stent used is a 3.0 x 9-mm Claridge. Result was 0% residual stenosis. OVERALL IMPRESSION: Successful PTCA and stent of the left main going from 90% initial stenosis to 0% residual. PLAN: Plan for repeat coronary angiography of the RCA attempting to get a guide into this proximal aspect of the vessel for transcatheter revascularization of the mid vessel. TRANSINT:[id number] Voice Confirmation ID: [id number] DOCUMENT ID: [id number] OPERATIVE REPORT [id number] TREVINVIBHA JEFFREY MD at 1407 CC: [id number] DICTATION DATE: 07/27/19 1133 SENIOR CONTRACTS ADMINISTRATOR: 07/27/19 1223 ADM IN [place] [id number] [place] [address]
--- NOTE | 2019-07-31 14:08 | OP ---
PATIENT NAME: VIBHA ZHONG MEDICAL RECORD: [id number] :54 LOCATION:D.M2 D.2114 ADMISSION DATE:07/27/19 SURGEON: GURWINDER NEELY MD DATE OF OPERATION: 07/29/2019 PROCEDURES: 1. PTCA stent RCA. 2. IFR. 3. Selective coronary angiography. INDICATION: Unstable angina and coronary artery disease. PROCEDURE IN DETAIL: After informed consent was obtained and after a detailed description of the risks, benefits as well as alternative therapies, the patient elected to proceed with angiogram and angioplasty. The left femoral area was prepped and draped in normal sterile fashion. Left femoral artery was cannulated via modified Seldinger technique with placement of 7-Taiwanese sheath. All catheters exchanged through this sheath. FINDINGS: The right coronary artery has multiple areas of 80% stenosis. IFR was abnormal at 0.83. Stenting was undertaken with a 3.0 x 18, 3.0 x 15, 2.5 x 22, 2.5 x 26 mixed between [place] and Integrity stents. Result was 0% residual stenosis. OVERALL IMPRESSION: Successful percutaneous transluminal coronary angioplasty stent of the right coronary artery going from multiple areas of 80% stenosis to 0% residual. TRANSINT:[id number] Voice Confirmation ID: [id number] DOCUMENT ID: [id number] GURWINDER NEELY MD at 1408 CC: [id number] DICTATION DATE: 07/29/19 1030 RIVETER AUTOMOBILE BRAKES: 07/29/19 1045 [place] [address]
[2019-07-31 15:53] VITALS: BP 136/57
--- NOTE | 2019-07-31 16:44 | NUR ---
Rehab Note- Acute Inpatient REhab prescreen order received. THe patient has [facility] insurance and would require a PreAuth. Per PT note- the patient requires no skilled physical therapy needs at this time. THe patient is too functional for acute inpatient rehab at this time. Thank you fot this referral! Nelly Tinoco RN Clinical Liaison, [facility]
--- NOTE | 2019-07-31 17:26 | MORECARE ---
CASE MANAGEMENT DISCHARGE SUMMARY PATIENT: VIBHA ZHONG UNIT: [id number] ADM DATE: 07/27/19 AGE: 69 : 52 SEX: M ROOM/BED: D.0071 AUTHOR: AVI,DOC PHYSICIAN: REFERRING PHYSICIAN: GURWINDER NEELY MD DATE OF SERVICE: 07/31/19 Discharge Plan Patient Name: VIBHA ZHONG Facility: [facility]:[place] : 1950 Planned Disposition: Home Anticipated Discharge Date: 08/02/19 Discharge Date: Expected LOS: 6 Initial Reviewer: [id number] Initial Review Date: 07/26/2019 Generated: 07/31/19 6:25 pm Comments DCP- Discharge Planning Updated by [id number]: Hans Banda on 07/31/19 4:[address] Patient Name: VIBHA ZHONG Admission Status: ER Accout number: [id number] Admission Date: 07-27-2019 : 1950 Admission Diagnosis: Attending: NONA NEELY Current LOS: 4 Anticipated DC Date: 08-02-2019 Planned Disposition: Home Primary Insurance: [facility] MEDICARE SOLUTIONS Discharge Planning Comments: CM RECEIVED ORDER FOR OXYGEN TESTING PRIOR TO DISCHARGE AND TO ARRANGE OXYGEN IF PT QUALIFIES. CM MET WITH PT IN ROOM TO DISCUSS DISCHARGE PLANNING AND NEEDS. PT REPORTS LIVING AT HOME INDEPENDENTLY WITH HIS SON AND DAUGHTER IN LAW. PT HAS NEBULIZER FROM [facility]. PT HAS NO OUTSIDE SERVICES ASSISTING IN THE HOME. CM DISCUSSED AVAILABILITY OF HOME HEALTH, REHAB SERVICES AND MEDICAL EQUIPMENT. IF HE NEEDS HOME OXYGEN, HE WANTS TO USE [facility], CHOICE SIGNED. PT DENIES FURTHER DISCHARGE NEEDS, REPORTS HIS SIGNIFICANT OTHER OR SON WILL PICK HIM UP FOR DISCHARGE HOME. IMPORTANT MESSAGE FROM MEDICARE PROVIDED AND EXPLAINED. CM SPOKE TO DR. CLEMONS WHO ANTICIPATES DISCHARGE ON MONDAY. PT NEEDS HOME OXYGEN TESTING TOMORROW, 08-01-19. CM TO FOLLOW UP AND ORDER OXYGEN FROM [facility] IF PT HAS QUALIYING TESTING. Wastewater Analyst Lab Analyst: Hans Banda DCPIA - Discharge Planning Initial Assessment Updated by [id number]: Hans Banda on 07/31/19 5:18 pm * Is the patient Alert and Oriented? Yes * How many steps to enter\exit or inside your home? * PCP DR[address], [address] [facility] * Pharmacy [facility], [address] [facility] * Preadmission Environment Home with Family * ADLs Independent * Equipment Nebulizer * Other Equipment [facility] - MEDICAL EQUIPMENT PROVIDER * List name and contact numbers for known caregivers / representatives who currently or will assist patient after discharge: JORGE ALBERTO CLAYTON, SIGNIFICANT OTHER, * Community resources currently utilized None * Please name any agencies selected above. NONE * Additional services required to return to the preadmission environment? No * Can the patient safely return to the preadmission environment? Yes * Has this patient been hospitalized within the prior 30 days at any hospital? Yes Coverage Notice Reviewer: [id number] Banda Notice Issued Date-Time: 07/31/2019 9:30 Notice Type: Patient Choice Letter Notice Delivered To: Patient Relationship to Patient: Color Room Attendant Name: Delivery Method: HAND - Hand Delivered Iman Days: Prior Verbal Notification: Recipient Understood Notice: Yes Recipient Signature: Yes Med Rec Note Co-signed by Attending: Coverage Notice Comment: [facility] Reviewer: [id number] Banda Notice Issued Date-Time: 07/31/2019 9:30 Notice Type: IM Discharge Notice Notice Delivered To: Patient Relationship to Patient: Color Room Attendant Name: Delivery Method: HAND - Hand Delivered Iman Days: Prior Verbal Notification: Recipient Understood Notice: Yes Recipient Signature: Yes Med Rec Note Co-signed by Attending: Coverage Notice Comment: Last DP export: 07/27/19 5:29 p Patient Name: VIBHA ZHONG Page [id number] at 1726 All edits/amendments must be made on the electronic document DICTATION DATE: 07/31/191724 OFFICE SUPPORT CLERK: CHERY 07/31/191724 RPT#: [id number] DC DATE: STATUS: ADM IN [facility] [address] [place] [address] END OF REPORT
--- NOTE | 2019-07-31 18:45 | NUR ---
RECEIVED BEDSIDE REPORT. PATIENT IS ALERT AND ORIENTED. PATIENT IS UP USING RESTROOM. RESPIRATIONS ARE EVEN AND UNLABORED. PATIENT REMAINS ON 4L NC. NO S/S OF DISTRESS. NO C/O PAIN. NEEDS MET. CALL LIGHT WITHIN REACH. WILL CPOC.
[2019-07-31 20:00] VITALS: BP 122/60
[2019-08-01] VITALS (7 sets, daily range): BP systolic 93–155; BP diastolic 48–75
--- NOTE | 2019-08-01 15:07 | NUR ---
WALK TEST DONE BY RT. DOES NOT QUALIFY FOR HOME 02. WILL CONT. PLAN OF CARE.
--- NOTE | 2019-08-01 15:59 | MORECARE ---
CASE MANAGEMENT DISCHARGE SUMMARY PATIENT: VIBHA ZHONG UNIT: [id number] ADM DATE: 07/27/19 AGE: 69 : 52 SEX: M ROOM/BED: D.2114 AUTHOR: AVI,DOC PHYSICIAN: REFERRING PHYSICIAN: GURWINDER NEELY MD DATE OF SERVICE: 08/01/19 Discharge Plan Patient Name: VIBHA ZHONG Facility: [facility]:[place] : 1950 Planned Disposition: Home Anticipated Discharge Date: 08/02/19 Discharge Date: Expected LOS: 6 Initial Reviewer: [id number] Initial Review Date: 07/26/2019 Generated: 08/01/19 4:59 pm Comments DCP- Discharge Planning Updated by [id number]: Hans Banda on 08/01/19 2:[address] Patient Name: VIBHA ZHONG Encounter No: [id number] : 1950 Primary Insurance: [facility] MEDICARE SOLUTIONS Anticipated DC Date: 08-02-2019 Planned Disposition: Home DCP follow-up note: CM RECEIVED OXYGEN TESTING, PT 94% AT REST ON ROOM AIR, LOWEST SAT WAS 95% DURING EXERTION ON ROOM AIR; PT DID NOT QUALIFY FOR OXYGEN. CM SPOKE TO PT IN ROOM, CM MET WITH PT IN ROOM TO DISCUSS DISCHARGE NEEDS AND PLANNING. CM DISCUSSED AVAILABILITY OF HOME HEALTH, REHAB SERVICES AND MEDICAL EQUIPMENT. PT DENIES DISCHARGE NEEDS. FAMILY TO TRANSPORT HOME AT DISCHARGE. CM TO FOLLOW AND ASSIST NEEDED. LETICIA Valencia DCP- Discharge Planning Updated by [id number]: Hans Banda on 07/31/19 4:[address] Patient Name: VIBHA ZHONG Admission Status: ER Accout number: [id number] Admission Date: 07-27-2019 : 1950 Admission Diagnosis: Attending: NONA NEELY Current LOS: 4 Anticipated DC Date: 08-02-2019 Planned Disposition: Home Primary Insurance: [facility] MEDICARE SOLUTIONS Discharge Planning Comments: CM RECEIVED ORDER FOR OXYGEN TESTING PRIOR TO DISCHARGE AND TO ARRANGE OXYGEN IF PT QUALIFIES. CM MET WITH PT IN ROOM TO DISCUSS DISCHARGE PLANNING AND NEEDS. PT REPORTS LIVING AT HOME INDEPENDENTLY WITH HIS SON AND DAUGHTER IN LAW. PT HAS NEBULIZER FROM [facility]. PT HAS NO OUTSIDE SERVICES ASSISTING IN THE HOME. CM DISCUSSED AVAILABILITY OF HOME HEALTH, REHAB SERVICES AND MEDICAL EQUIPMENT. IF HE NEEDS HOME OXYGEN, HE WANTS TO USE [facility], CHOICE SIGNED. PT DENIES FURTHER DISCHARGE NEEDS, REPORTS HIS SIGNIFICANT OTHER OR SON WILL PICK HIM UP FOR DISCHARGE HOME. IMPORTANT MESSAGE FROM MEDICARE PROVIDED AND EXPLAINED. CM SPOKE TO DR. CLEMONS WHO ANTICIPATES DISCHARGE ON MONDAY. PT NEEDS HOME OXYGEN TESTING TOMORROW, 08-01-19. CM TO FOLLOW UP AND ORDER OXYGEN FROM [facility] IF PT HAS QUALIYING TESTING. Buccaro: Hans Banda DCPIA - Discharge Planning Initial Assessment Updated by [id number]: Hans Banda on 07/31/19 5:18 pm * Is the patient Alert and Oriented? Yes * How many steps to enter\exit or inside your home? * PCP DR[address] M[address], [address] [facility] * Pharmacy [facility], [address] [facility] * Preadmission Environment Home with Family * ADLs Independent * Equipment Nebulizer * Other Equipment [facility] - MEDICAL EQUIPMENT PROVIDER * List name and contact numbers for known caregivers / representatives who currently or will assist patient after discharge: JORGE ALBERTO CLAYTON, SIGNIFICANT OTHER, * Community resources currently utilized None * Please name any agencies selected above. NONE * Additional services required to return to the preadmission environment? No * Can the patient safely return to the preadmission environment? Yes * Has this patient been hospitalized within the prior 30 days at any hospital? Yes Coverage Notice Reviewer: [id number] Mustapha Banda Notice Issued Date-Time: 07/31/2019 9:30 Notice Type: Patient Choice Letter Notice Delivered To: Patient Relationship to Patient: Apartment Leasing Manager Name: Delivery Method: HAND - Hand Delivered Iman Days: Prior Verbal Notification: Recipient Understood Notice: Yes Recipient Signature: Yes Med Rec Note Co-signed by Attending: Coverage Notice Comment: [facility] Reviewer: [id number] Mustapha Banda Notice Issued Date-Time: 07/31/2019 9:30 Notice Type: IM Discharge Notice Notice Delivered To: Patient Relationship to Patient: Apartment Leasing Manager Name: Delivery Method: HAND - Hand Delivered Iman Days: Prior Verbal Notification: Recipient Understood Notice: Yes Recipient Signature: Yes Med Rec Note Co-signed by Attending: Coverage Notice Comment: Last DP export: 07/31/19 4:26 p Patient Name: VIBHA ZHONG Page 80636 at 1559 All edits/amendments must be made on the electronic document DICTATION DATE: 08/01/191558 CHIEF TECHNOLOGY OFFICER: CHERY 08/01/191558 RPT#: [id number] DC DATE: STATUS: ADM IN [facility] [address] [place] [address] END OF REPORT
[2019-08-02 04:00] VITALS: BP 168/62
--- NOTE | 2019-08-02 07:15 | NUR ---
RECEIVED PT IN BED EYES CLOSED RESP UNLABORED NAD NOTED WILL CONTINUE TO MONITOR
[2019-08-02 09:00] VITALS: BP 147/69
--- NOTE | 2019-08-02 09:18 | NUR ---
UPON ADMIT PATIENT STATES HE HAS NOT HAD A FLU SHOT BUT WHEN QUESTIONED HE STATES HE RECEIVED ONE IN FROM HIS PRIMARY DR MIXON.
--- NOTE | 2019-08-02 09:21 | NUR ---
PAGE INTO DR CLEMONS FOR DISCHARGE ORDERS.
--- NOTE | 2019-08-02 09:32 | MORECARE ---
CASE MANAGEMENT DISCHARGE SUMMARY PATIENT: VIBHA ZHONG UNIT: [id number] ADM DATE: 07/27/19 AGE: 69 : 52 SEX: M ROOM/BED: D.2114 AUTHOR: AVIDOC PHYSICIAN: REFERRING PHYSICIAN: GURWINDER NEELY MD DATE OF SERVICE: 08/02/19 Discharge Plan Patient Name: VIBHA ZHONG Facility: [facility]:[place] : 1950 Planned Disposition: Home with Home Health Anticipated Discharge Date: 08/02/19 Discharge Date: Expected LOS: 6 Initial Reviewer: [id number] Initial Review Date: 07/26/2019 Generated: 08/02/19 10:32 am Comments DCP- Discharge Planning Updated by [id number]: Hans Banda on 08/01/19 2:[address] Patient Name: VIBHA ZHONG Encounter No: [id number] : 1950 Primary Insurance: [facility] MEDICARE SOLUTIONS Anticipated DC Date: 08-02-2019 Planned Disposition: Home DCP follow-up note: CM RECEIVED OXYGEN TESTING, PT 94% AT REST ON ROOM AIR, LOWEST SAT WAS 95% DURING EXERTION ON ROOM AIR; PT DID NOT QUALIFY FOR OXYGEN. CM SPOKE TO PT IN ROOM, CM MET WITH PT IN ROOM TO DISCUSS DISCHARGE NEEDS AND PLANNING. CM DISCUSSED AVAILABILITY OF HOME HEALTH, REHAB SERVICES AND MEDICAL EQUIPMENT. PT DENIES DISCHARGE NEEDS. FAMILY TO TRANSPORT HOME AT DISCHARGE. CM TO FOLLOW AND ASSIST NEEDED. LETICIA Valencia DCP- Discharge Planning Updated by [id number]: Hans Banda on 07/31/19 4:[address] Patient Name: VIBHA ZHONG Admission Status: ER Accout number: [id number] Admission Date: 07-27-2019 : 1950 Admission Diagnosis: Attending: NONA NEELY Current LOS: 4 Anticipated DC Date: 08-02-2019 Planned Disposition: Home Primary Insurance: [facility] MEDICARE SOLUTIONS Discharge Planning Comments: CM RECEIVED ORDER FOR OXYGEN TESTING PRIOR TO DISCHARGE AND TO ARRANGE OXYGEN IF PT QUALIFIES. CM MET WITH PT IN ROOM TO DISCUSS DISCHARGE PLANNING AND NEEDS. PT REPORTS LIVING AT HOME INDEPENDENTLY WITH HIS SON AND DAUGHTER IN LAW. PT HAS NEBULIZER FROM [facility]. PT HAS NO OUTSIDE SERVICES ASSISTING IN THE HOME. CM DISCUSSED AVAILABILITY OF HOME HEALTH, REHAB SERVICES AND MEDICAL EQUIPMENT. IF HE NEEDS HOME OXYGEN, HE WANTS TO USE [facility], CHOICE SIGNED. PT DENIES FURTHER DISCHARGE NEEDS, REPORTS HIS SIGNIFICANT OTHER OR SON WILL PICK HIM UP FOR DISCHARGE HOME. IMPORTANT MESSAGE FROM MEDICARE PROVIDED AND EXPLAINED. CM SPOKE TO DR. CLEMONS WHO ANTICIPATES DISCHARGE ON MONDAY. PT NEEDS HOME OXYGEN TESTING TOMORROW, 08-01-19. CM TO FOLLOW UP AND ORDER OXYGEN FROM [facility] IF PT HAS QUALIYING TESTING. Packing Machine Feeder: Hans Banda DCPIA - Discharge Planning Initial Assessment Updated by [id number]: Hans Banda on 07/31/19 5:18 pm * Is the patient Alert and Oriented? Yes * How many steps to enter\exit or inside your home? * PCP DR[address] M[address], [address] [facility] * Pharmacy [facility], [facility] [address] [facility] * Preadmission Environment Home with Family * ADLs Independent * Equipment Nebulizer * Other Equipment [facility] - MEDICAL EQUIPMENT PROVIDER * List name and contact numbers for known caregivers / representatives who currently or will assist patient after discharge: JORGE ALBERTO CLAYTON, SIGNIFICANT OTHER, * Community resources currently utilized None * Please name any agencies selected above. NONE * Additional services required to return to the preadmission environment? No * Can the patient safely return to the preadmission environment? Yes * Has this patient been hospitalized within the prior 30 days at any hospital? Yes Coverage Notice Reviewer: [id number] Mustapha Banda Notice Issued Date-Time: 07/31/2019 9:30 Notice Type: Patient Choice Letter Notice Delivered To: Patient Relationship to Patient: Integration Director Name: Delivery Method: HAND - Hand Delivered Iman Days: Prior Verbal Notification: Recipient Understood Notice: Yes Recipient Signature: Yes Med Rec Note Co-signed by Attending: Coverage Notice Comment: [facility] Reviewer: [id number] Mustapha Banda Notice Issued Date-Time: 07/31/2019 9:30 Notice Type: IM Discharge Notice Notice Delivered To: Patient Relationship to Patient: Integration Director Name: Delivery Method: HAND - Hand Delivered Iman Days: Prior Verbal Notification: Recipient Understood Notice: Yes Recipient Signature: Yes Med Rec Note Co-signed by Attending: Coverage Notice Comment: Last DP export: 08/01/19 2:59 p Patient Name: VIBHA ZHONG Page 90415 at 0932 All edits/amendments must be made on the electronic document DICTATION DATE: 08/02/19930 MAITRE D': CHERY 08/02/19930 RPT#: [id number] DC DATE: STATUS: ADM IN [facility] [address] [place] [address] END OF REPORT
--- NOTE | 2019-08-02 09:38 | MORECARE ---
CASE MANAGEMENT DISCHARGE SUMMARY PATIENT: VIBHA ZHONG UNIT: [id number] ADM DATE: 07/27/19 AGE: 69 : 52 SEX: M ROOM/BED: D.2114 AUTHOR: AVIDOC PHYSICIAN: REFERRING PHYSICIAN: GURWINDER NEELY MD DATE OF SERVICE: 08/02/19 Discharge Plan Patient Name: VIBHA ZHONG Facility: [facility]:[place] : 1950 Planned Disposition: Home with Home Health Anticipated Discharge Date: 08/02/19 Discharge Date: Expected LOS: 6 Initial Reviewer: [id number] Initial Review Date: 07/26/2019 Generated: 08/02/19 10:38 am Comments DCP- Discharge Planning Updated by [email or web address]: Hans Banda on 08/01/19 2:[address] Patient Name: VIBHA ZHONG Encounter No: [id number] : 1950 Primary Insurance: [facility] MEDICARE SOLUTIONS Anticipated DC Date: 08-02-2019 Planned Disposition: Home DCP follow-up note: CM RECEIVED OXYGEN TESTING, PT 94% AT REST ON ROOM AIR, LOWEST SAT WAS 95% DURING EXERTION ON ROOM AIR; PT DID NOT QUALIFY FOR OXYGEN. CM SPOKE TO PT IN ROOM, CM MET WITH PT IN ROOM TO DISCUSS DISCHARGE NEEDS AND PLANNING. CM DISCUSSED AVAILABILITY OF HOME HEALTH, REHAB SERVICES AND MEDICAL EQUIPMENT. PT DENIES DISCHARGE NEEDS. FAMILY TO TRANSPORT HOME AT DISCHARGE. CM TO FOLLOW AND ASSIST NEEDED. LETICIA Valencia DCP- Discharge Planning Updated by [id number]: Hans Banda on 07/31/19 4:[address] Patient Name: VIBHA ZHONG Admission Status: ER Accout number: [id number] Admission Date: 07-27-2019 : 1950 Admission Diagnosis: Attending: NONA NEELY Current LOS: 4 Anticipated DC Date: 08-02-2019 Planned Disposition: Home Primary Insurance: [facility] MEDICARE SOLUTIONS Discharge Planning Comments: CM RECEIVED ORDER FOR OXYGEN TESTING PRIOR TO DISCHARGE AND TO ARRANGE OXYGEN IF PT QUALIFIES. CM MET WITH PT IN ROOM TO DISCUSS DISCHARGE PLANNING AND NEEDS. PT REPORTS LIVING AT HOME INDEPENDENTLY WITH HIS SON AND DAUGHTER IN LAW. PT HAS NEBULIZER FROM [facility]. PT HAS NO OUTSIDE SERVICES ASSISTING IN THE HOME. CM DISCUSSED AVAILABILITY OF HOME HEALTH, REHAB SERVICES AND MEDICAL EQUIPMENT. IF HE NEEDS HOME OXYGEN, HE WANTS TO USE [facility], CHOICE SIGNED. PT DENIES FURTHER DISCHARGE NEEDS, REPORTS HIS SIGNIFICANT OTHER OR SON WILL PICK HIM UP FOR DISCHARGE HOME. IMPORTANT MESSAGE FROM MEDICARE PROVIDED AND EXPLAINED. CM SPOKE TO DR. CLEMONS WHO ANTICIPATES DISCHARGE ON MONDAY. PT NEEDS HOME OXYGEN TESTING TOMORROW, 08-01-19. CM TO FOLLOW UP AND ORDER OXYGEN FROM [facility] IF PT HAS QUALIYING TESTING. Cloth Desizing Range Tender: Hans Banda DCPIA - Discharge Planning Initial Assessment Updated by [id number]: Hans Banda on 07/31/19 5:18 pm * Is the patient Alert and Oriented? Yes * How many steps to enter\exit or inside your home? * PCP DR[address], [address] [facility] * Pharmacy [facility], [address] [facility] * Preadmission Environment Home with Family * ADLs Independent * Equipment Nebulizer * Other Equipment [facility] - MEDICAL EQUIPMENT PROVIDER * List name and contact numbers for known caregivers / representatives who currently or will assist patient after discharge: JORGE ALBERTO CLAYTON, SIGNIFICANT OTHER, * Community resources currently utilized None * Please name any agencies selected above. NONE * Additional services required to return to the preadmission environment? No * Can the patient safely return to the preadmission environment? Yes * Has this patient been hospitalized within the prior 30 days at any hospital? Yes External Providers External Provider: [facility] Next Contact Date: 08/02/2019 Service Request Date: Service Type: Resolution: Reviewer: Comments: External Provider: [facility] Next Contact Date: 08/02/2019 Service Request Date: Service Type: Resolution: Reviewer: Comments: External Provider: OTHER-OTHER Next Contact Date: Service Request Date: Service Type: Resolution: Reviewer: Comments: Coverage Notice Reviewer: [id number] - Hans Banda Notice Issued Date-Time: 07/31/2019 9:30 Notice Type: Patient Choice Letter Notice Delivered To: Patient Relationship to Patient: Release Coordinator Name: Delivery Method: HAND - Hand Delivered Iman Days: Prior Verbal Notification: Recipient Understood Notice: Yes Recipient Signature: Yes Med Rec Note Co-signed by Attending: Coverage Notice Comment: [facility] Reviewer: [id number] - Hans Banda Notice Issued Date-Time: 07/31/2019 9:30 Notice Type: IM Discharge Notice Notice Delivered To: Patient Relationship to Patient: Release Coordinator Name: Delivery Method: HAND - Hand Delivered Iman Days: Prior Verbal Notification: Recipient Understood Notice: Yes Recipient Signature: Yes Med Rec Note Co-signed by Attending: Coverage Notice Comment: Last DP export: 08/02/19 8:32 a Patient Name: VIBHA ZHONG Page [phone] at 0938 All edits/amendments must be made on the electronic document DICTATION DATE: 08/02/19937 STORE DIRECTOR: CHERY 08/02/19937 RPT#: [id number] DC DATE: STATUS: ADM IN [facility] [address] [place] [address] END OF REPORT
--- NOTE | 2019-08-02 09:39 | NUR ---
DR CLEMONS TO CALL BACK AND STATES HE WILL SEE THE PATIENT FOR DISCHARGE.
--- NOTE | 2019-08-02 09:52 | MORECARE ---
CASE MANAGEMENT DISCHARGE SUMMARY PATIENT: VIBHA ZHONG UNIT: [id number] ADM DATE: 07/27/19 AGE: 69 : 54 SEX: M ROOM/BED: D.6294 AUTHOR: AVI,DOC PHYSICIAN: REFERRING PHYSICIAN: GURWINDER NEELY MD DATE OF SERVICE: 08/02/19 Discharge Plan Patient Name: VIBHA ZHONG Facility: [facility]:[place] : 1950 Planned Disposition: Home with Home Health Anticipated Discharge Date: 08/02/19 Discharge Date: Expected LOS: 6 Initial Reviewer: [id number] Initial Review Date: 07/26/2019 Generated: 08/02/19 10:51 am Comments DCP- Discharge Planning Updated by [id number]: Hans Banda on 08/02/19 8:[address] Patient Name: VIBHA ZHONG Encounter No: [id number] : 1950 Primary Insurance: [facility] MEDICARE SOLUTIONS Anticipated DC Date: 08-02-2019 Planned Disposition: Home with Home Health External Planned Provider: [facility] DCP follow-up note: CM RECEIVED HOME HEALTH ORDER, SPOKE TO PT IN ROOM REGARDING HOME HEALTH SERVICES, PROVIDED LISTING OF HOME HEALTH AGENCIES. PT HAS NO PREFERENCE ON AGENCY, CHOICE SIGNED FOR NO PREFERENCE. PT DOES WANT PULSE OXIMETRY FROM [facility], CHOICE PREVIOUSLY SIGNED. PT'S SIGNFICANT OTHER HERE TO TRANSPORT HOME AT DISCHARGE. PT DENIES FURTHER DISCHARGE NEEDS. CM CALLED [facility], , SPOKE TO SUSAN, PROVIDED REFERRAL INFORMATION, SARIKA WILL SCREEN PT FOR HOME HEALTH ADMISSION FOR TOMORROW. CM FAXED REFERRAL INFORMATION TO [facility], . CM CALLED [facility], , SPOKE TO DAVID AND PROVIDED REFERRAL INFORMATION. CM FAXED REFERRAL TO [facility], . [facility] WILL CONTACT PT AND ARRANGE OVERNIGHT PULSE OXIMETRY FOR THIS WEEKEND. CREDIT VERIFICATION CLERK NURSE NOTIFIED. Hans Banda, CASE MANAGEMENT DCP- Discharge Planning Updated by [id number]: Hans Banda on 08/01/19 2:[address] Patient Name: VIBHA ZHONG Encounter No: [id number] : 1950 Primary Insurance: [facility] MEDICARE SOLUTIONS Anticipated DC Date: 08-02-2019 Planned Disposition: Home DCP follow-up note: CM RECEIVED OXYGEN TESTING, PT 94% AT REST ON ROOM AIR, LOWEST SAT WAS 95% DURING EXERTION ON ROOM AIR; PT DID NOT QUALIFY FOR OXYGEN. CM SPOKE TO PT IN ROOM, CM MET WITH PT IN ROOM TO DISCUSS DISCHARGE NEEDS AND PLANNING. CM DISCUSSED AVAILABILITY OF HOME HEALTH, REHAB SERVICES AND MEDICAL EQUIPMENT. PT DENIES DISCHARGE NEEDS. FAMILY TO TRANSPORT HOME AT DISCHARGE. CM TO FOLLOW AND ASSIST NEEDED. Hans Banda, CASE MANAGEMENT DCP- Discharge Planning Updated by [id number]: Hans Banda on 07/31/19 4:[address] Patient Name: VIBHA ZHONG Admission Status: ER Accout number: [id number] Admission Date: 07-27-2019 : 1950 Admission Diagnosis: Attending: ONNA NEELY Current LOS: 4 Anticipated DC Date: 08-02-2019 Planned Disposition: Home Primary Insurance: [facility] MEDICARE SOLUTIONS Discharge Planning Comments: CM RECEIVED ORDER FOR OXYGEN TESTING PRIOR TO DISCHARGE AND TO ARRANGE OXYGEN IF PT QUALIFIES. CM MET WITH PT IN ROOM TO DISCUSS DISCHARGE PLANNING AND NEEDS. PT REPORTS LIVING AT HOME INDEPENDENTLY WITH HIS SON AND DAUGHTER IN LAW. PT HAS NEBULIZER FROM [facility]. PT HAS NO OUTSIDE SERVICES ASSISTING IN THE HOME. CM DISCUSSED AVAILABILITY OF HOME HEALTH, REHAB SERVICES AND MEDICAL EQUIPMENT. IF HE NEEDS HOME OXYGEN, HE WANTS TO USE [facility], CHOICE SIGNED. PT DENIES FURTHER DISCHARGE NEEDS, REPORTS HIS SIGNIFICANT OTHER OR SON WILL PICK HIM UP FOR DISCHARGE HOME. IMPORTANT MESSAGE FROM MEDICARE PROVIDED AND EXPLAINED. CM SPOKE TO DR. CLEMONS WHO ANTICIPATES DISCHARGE ON MONDAY. PT NEEDS HOME OXYGEN TESTING TOMORROW, 08-01-19. CM TO FOLLOW UP AND ORDER OXYGEN FROM [facility] IF PT HAS QUALIYING TESTING. Circuit Manager: Hans Banda DCPIA - Discharge Planning Initial Assessment Updated by [id number]: Hans Banda on 07/31/19 5:18 pm * Is the patient Alert and Oriented? Yes * How many steps to enter\exit or inside your home? * PCP DR[address], [address] [facility] * Pharmacy [facility], [address] [facility] * Preadmission Environment Home with Family * ADLs Independent * Equipment Nebulizer * Other Equipment [facility] - MEDICAL EQUIPMENT PROVIDER * List name and contact numbers for known caregivers / representatives who currently or will assist patient after discharge: JORGE ALBERTO CLAYTON, SIGNIFICANT OTHER, * Community resources currently utilized None * Please name any agencies selected above. NONE * Additional services required to return to the preadmission environment? No * Can the patient safely return to the preadmission environment? Yes * Has this patient been hospitalized within the prior 30 days at any hospital? Yes Coverage Notice Reviewer: [id number] Banda Notice Issued Date-Time: 07/31/2019 9:30 Notice Type: Patient Choice Letter Notice Delivered To: Patient Relationship to Patient: Manager Pmo Name: Delivery Method: HAND - Hand Delivered Iman Days: Prior Verbal Notification: Recipient Understood Notice: Yes Recipient Signature: Yes Med Rec Note Co-signed by Attending: Coverage Notice Comment: [facility] Reviewer: YUDELKA Banda Notice Issued Date-Time: 07/31/2019 9:30 Notice Type: IM Discharge Notice Notice Delivered To: Patient Relationship to Patient: Manager Pmo Name: Delivery Method: HAND - Hand Delivered Iman Days: Prior Verbal Notification: Recipient Understood Notice: Yes Recipient Signature: Yes Med Rec Note Co-signed by Attending: Coverage Notice Comment: Reviewer: YUDELKA Banda Notice Issued Date-Time: 08/02/2019 9:20 Notice Type: Patient Choice Letter Notice Delivered To: Patient Relationship to Patient: Manager Pmo Name: Delivery Method: HAND - Hand Delivered Iman Days: Prior Verbal Notification: Recipient Understood Notice: Yes Recipient Signature: Yes Med Rec Note Co-signed by Attending: Coverage Notice Comment: NO HOME HEALTH PROVIDER PREFERENCE Last DP export: 08/02/19 8:38 a Patient Name: VIBHA ZHONG Page [id number] at 0952 All edits/amendments must be made on the electronic document DICTATION DATE: 08/02/19950 RAWHIDE TRIMMER: CHERY 08/02/19950 RPT#: [id number] DC DATE: STATUS: ADM IN [facility] [address] [place] [address] END OF REPORT
[2019-08-02] MEDS ORDERED: IPRAT-ALBUT 0.5-3 ML UPD (11:04)
[2019-08-02] MEDS ORDERED: MUCINEX DM ER1 EAC1 PO (11:05)
[2019-08-02] MEDS ORDERED: DALIRESP500 MCG PO (11:05)
[2019-08-02] MEDS ORDERED: OMNICEF300 MG PO (11:06)
[2019-08-02] MEDS ORDERED: ZPAK PO (11:08)
[2019-08-02] MEDS ORDERED: ZOFRAN4 MG PO (11:33)
--- NOTE | 2019-08-02 11:43 | MORECARE ---
CASE MANAGEMENT DISCHARGE SUMMARY PATIENT: VIBHA ZHONG UNIT: [id number] ADM DATE: 07/27/19 AGE: 69 : 52 SEX: M ROOM/BED: D.0564 AUTHOR: AVI,DOC PHYSICIAN: REFERRING PHYSICIAN: GURWINDER NEELY MD DATE OF SERVICE: 08/02/19 Discharge Plan Patient Name: VIBHA ZHONG Facility: [facility]:[place] : 1950 Planned Disposition: Home with Home Health Anticipated Discharge Date: 08/02/19 Discharge Date: Expected LOS: 6 Initial Reviewer: [id number] Initial Review Date: 07/26/2019 Generated: 08/02/19 12:42 pm Comments DCP- Discharge Planning Updated by [id number]: Hans Banda on 08/02/19 10:[address] Patient Name: VIBHA ZHONG Encounter No: [id number] : 1950 Primary Insurance: [facility] MEDICARE SOLUTIONS Anticipated DC Date: 08-02-2019 Planned Disposition: Home with Home Health External Planned Provider: [facility] DCP follow-up note: CM RECEIVED HOME HEALTH ORDER, SPOKE TO PT IN ROOM REGARDING HOME HEALTH SERVICES, PROVIDED LISTING OF HOME HEALTH AGENCIES. PT HAS NO PREFERENCE ON AGENCY, CHOICE SIGNED FOR NO PREFERENCE. PT DOES WANT PULSE OXIMETRY FROM [facility], CHOICE PREVIOUSLY SIGNED. PT'S SIGNFICANT OTHER HERE TO TRANSPORT HOME AT DISCHARGE. PT DENIES FURTHER DISCHARGE NEEDS. CM CALLED [facility], , SPOKE TO SUSAN, PROVIDED REFERRAL INFORMATION, SARIKA WILL SCREEN PT FOR HOME HEALTH ADMISSION FOR TOMORROW. CM FAXED REFERRAL INFORMATION TO [facility], . CM CALLED [facility], , SPOKE TO DAVID AND PROVIDED REFERRAL INFORMATION. CM FAXED REFERRAL TO [facility], . [facility] WILL CONTACT PT AND ARRANGE OVERNIGHT PULSE OXIMETRY FOR THIS WEEKEND. MACHINE SHOP INSTRUCTOR NURSE NOTIFIED. Hans Banda, CASE MANAGEMENT Appended by Hans Banda on 08/02/2019 11:36 TELEMETRY TECH: CM RECEIVED CALL FROM SUSAN OF [facility], PT ACCEPTED, [place] WILL CALL TODAY TO SCHEDULE ADMIT FOR TOMORROW. MACHINE SHOP INSTRUCTOR NURSE NOTIFIED. LETICIA HONEYCUTT MANAGEMENT DCP- Discharge Planning Updated by [id number]: Hans Banda on 08/01/19 2:[address] Patient Name: VIBHA ZHONG Encounter No: [id number] : 1950 Primary Insurance: [facility] MEDICARE SOLUTIONS Anticipated DC Date: 08-02-2019 Planned Disposition: Home DCP follow-up note: CM RECEIVED OXYGEN TESTING, PT 94% AT REST ON ROOM AIR, LOWEST SAT WAS 95% DURING EXERTION ON ROOM AIR; PT DID NOT QUALIFY FOR OXYGEN. CM SPOKE TO PT IN ROOM, CM MET WITH PT IN ROOM TO DISCUSS DISCHARGE NEEDS AND PLANNING. CM DISCUSSED AVAILABILITY OF HOME HEALTH, REHAB SERVICES AND MEDICAL EQUIPMENT. PT DENIES DISCHARGE NEEDS. FAMILY TO TRANSPORT HOME AT DISCHARGE. CM TO FOLLOW AND ASSIST NEEDED. LETICIA Honeycutt DCP- Discharge Planning Updated by [id number]: Hans Banda on 07/31/19 4:[address] Patient Name: VIBHA ZHONG Admission Status: ER Accout number: [id number] Admission Date: 07-27-2019 : 1950 Admission Diagnosis: Attending: NONA NEELY Current LOS: 4 Anticipated DC Date: 08-02-2019 Planned Disposition: Home Primary Insurance: [facility] MEDIC[employer] SOLUTIONS Discharge Planning Comments: CM RECEIVED ORDER FOR OXYGEN TESTING PRIOR TO DISCHARGE AND TO ARRANGE OXYGEN IF PT QUALIFIES. CM MET WITH PT IN ROOM TO DISCUSS DISCHARGE PLANNING AND NEEDS. PT REPORTS LIVING AT HOME INDEPENDENTLY WITH HIS SON AND DAUGHTER IN LAW. PT HAS NEBULIZER FROM [facility]. PT HAS NO OUTSIDE SERVICES ASSISTING IN THE HOME. CM DISCUSSED AVAILABILITY OF HOME HEALTH, REHAB SERVICES AND MEDICAL EQUIPMENT. IF HE NEEDS HOME OXYGEN, HE WANTS TO USE [facility], CHOICE SIGNED. PT DENIES FURTHER DISCHARGE NEEDS, REPORTS HIS SIGNIFICANT OTHER OR SON WILL PICK HIM UP FOR DISCHARGE HOME. IMPORTANT MESSAGE FROM MEDICARE PROVIDED AND EXPLAINED. CM SPOKE TO DR. CLEMONS WHO ANTICIPATES DISCHARGE ON MONDAY. PT NEEDS HOME OXYGEN TESTING TOMORROW, 08-01-19. CM TO FOLLOW UP AND ORDER OXYGEN FROM [facility] IF PT HAS QUALIYING TESTING. Intrusion Analyst: Hans Banda DCPIA - Discharge Planning Initial Assessment Updated by [id number]: Hans Banda on 11/6/19 5:18 pm * Is the patient Alert and Oriented? Yes * How many steps to enter\exit or inside your home? * PCP DR[address], [address] [facility] * Pharmacy [facility], [address] [facility] * Preadmission Environment Home with Family * ADLs Independent * Equipment Nebulizer * Other Equipment [facility] - MEDICAL EQUIPMENT PROVIDER * List name and contact numbers for known caregivers / representatives who currently or will assist patient after discharge: JORGE ALBERTO CLAYTON, SIGNIFICANT OTHER, * Community resources currently utilized None * Please name any agencies selected above. NONE * Additional services required to return to the preadmission environment? No * Can the patient safely return to the preadmission environment? Yes * Has this patient been hospitalized within the prior 30 days at any hospital? Yes Coverage Notice Reviewer: YUDELKA Banda Notice Issued Date-Time: 07/31/2019 9:30 Notice Type: Patient Choice Letter Notice Delivered To: Patient Relationship to Patient: Jawbone Breaker Name: Delivery Method: HAND - Hand Delivered Iman Days: Prior Verbal Notification: Recipient Understood Notice: Yes Recipient Signature: Yes Med Rec Note Co-signed by Attending: Coverage Notice Comment: [facility] Reviewer: YUDELKA Banda Notice Issued Date-Time: 07/31/2019 9:30 Notice Type: IM Discharge Notice Notice Delivered To: Patient Relationship to Patient: Jawbone Breaker Name: Delivery Method: HAND - Hand Delivered Iman Days: Prior Verbal Notification: Recipient Understood Notice: Yes Recipient Signature: Yes Med Rec Note Co-signed by Attending: Coverage Notice Comment: Reviewer: YUDELKA Banda Notice Issued Date-Time: 08/02/2019 9:20 Notice Type: Patient Choice Letter Notice Delivered To: Patient Relationship to Patient: Jawbone Breaker Name: Delivery Method: HAND - Hand Delivered Iman Days: Prior Verbal Notification: Recipient Understood Notice: Yes Recipient Signature: Yes Med Rec Note Co-signed by Attending: Coverage Notice Comment: NO HOME HEALTH PROVIDER PREFERENCE Last DP export: 08/02/19 8:52 a Patient Name: VIBHA ZHONG Page [phone] at 1143 All edits/amendments must be made on the electronic document DICTATION DATE: 08/02/19 1142 CORPORATE LICENSED BROKER: CHERY 08/02/19 1142 RPT#: [id number] DC DATE: STATUS: ADM IN [facility] [address] [place] [address] END OF REPORT
--- NOTE | 2019-08-02 13:40 | NUR ---
REVIEWED DISCHARGE INSTRUCTIONS WITH PT STATES UNDERSTANDING COPY GIVEN DCD SALINE LOCK TO LAC WITH IV CATHETER INTACT SITE FREE OF REDNESS OR EDEMA PT DISCHARGED HOME LEFT UNIT VIA W/C IN STABLE CONDITION WITH ALL PERSONAL BELONGINGS
--- NOTE | 2019-08-07 10:41 | DS ---
PATIENT:VIBHA ZHONG :[birth year] MEDICAL RECORD: [id number] DISCHARGE SUMMARY ADMISSION DATE: 07/27/19 DISCHARGE DATE: 08/02/19 DATE OF SERVICE: 08/02/2019 DIAGNOSES: 1. Unstable angina. 2. Coronary artery disease. 3. Percutaneous transluminal coronary angioplasty stent right coronary artery this admission. 4. Percutaneous transluminal coronary angioplasty stent, left main this admission. 5. Status post coronary artery bypass graft surgery. 6. Chronic obstructive pulmonary disease. 7. Shortness of breath, dyspnea on exertion. 8. Bronchitis. 9. Hypertension. 10. Hyperlipidemia, intolerant of statins. HOSPITAL COURSE: This is a gentleman who presents with shortness of breath as well as anginal symptomatology, found to have 2-vessel coronary artery disease of the left main and RCA, underwent successful PTCA stent of both territories. He was seen by pulmonary, started on IV antibiotics, started on pulmonary-directed medications as well as respiratory status improved dramatically. He had no further anginal symptomatology. He was discharged home. Continue his current medications, which include Plavix, pulmonary-directed medication are per pulmonary. He will follow up with [facility] in 1 month. TRANSINT:[id number] Voice Confirmation ID: [id number] DOCUMENT ID: [id number] GURWINDER NEELY MD at 1041 CC: [id number] DICTATION DATE: 08/02/19834 URBAN DESIGNER: 08/03/19 0242 DIS IN 08/02/19 [place] [id number] [place] [id number]
== END 2019-08-02 13:40 | disposition home health service (06) | DRG 246 ==
LOC: D.ER 19:14 → D.M2 19:52 → OBSVTIME 19:52 → D.M2 19:52
PROVIDERS: Family Medicine; Internal Medicine Pulmonary Disease; ADMIT Internal Medicine Interventional Cardiology; ATTEND Internal Medicine Interventional Cardiology
PROC: 3E073GC Introduction of Other Therapeutic Substance into Coronary Artery, Percutaneous Approach (ICD-10-PCS; 2019-07-27)
PROC: 4A023N7 Measurement of Cardiac Sampling and Pressure, Left Heart, Percutaneous Approach (ICD-10-PCS; 2019-07-27)
PROC: B2121ZZ Fluoroscopy of Single Coronary Artery Bypass Graft using Low Osmolar Contrast (ICD-10-PCS; 2019-07-27)
PROC: B2181ZZ Fluoroscopy of Left Internal Mammary Bypass Graft using Low Osmolar Contrast (ICD-10-PCS; 2019-07-27)
PROC: B2151ZZ Fluoroscopy of Left Heart using Low Osmolar Contrast (ICD-10-PCS; 2019-07-27)
PROC: B2111ZZ Fluoroscopy of Multiple Coronary Arteries using Low Osmolar Contrast (ICD-10-PCS; 2019-07-27)
PROC: 027034Z Dilation of Coronary Artery, One Artery with Drug-eluting Intraluminal Device, Percutaneous Approach (ICD-10-PCS; principal; 2019-07-27 08:50)
PROC: 027037Z Dilation of Coronary Artery, One Artery with Four or More Drug-eluting Intraluminal Devices, Percutaneous Approach (ICD-10-PCS; 2019-07-29)
PROC: 02703GZ Dilation of Coronary Artery, One Artery with Four or More Intraluminal Devices, Percutaneous Approach (ICD-10-PCS; 2019-07-29)
PROC: 4A033BC Measurement of Arterial Pressure, Coronary, Percutaneous Approach (ICD-10-PCS; 2019-07-29)
DX: I25.110 Atherosclerotic heart disease of native coronary artery with unstable angina pectoris (principal); J96.01 Acute respiratory failure with hypoxia; J44.1 Chronic obstructive pulmonary disease with (acute) exacerbation; E87.1 Hypo-osmolality and hyponatremia; J44.0 Chronic obstructive pulmonary disease with (acute) lower respiratory infection; I10 Essential (primary) hypertension; E78.5 Hyperlipidemia, unspecified; J20.9 Acute bronchitis, unspecified; E87.5 Hyperkalemia; D64.9 Anemia, unspecified; Z86.73 Personal history of transient ischemic attack (TIA), and cerebral infarction without residual deficits

== ENCOUNTER 2019-10-06 16:05 | Observation (INO) | payer MEDICARE, MEDICAID ==
[~2019-10-06] VITALS: Ht 182.9 cm; Wt 83.1 kg
--- NOTE | ~2019-10-06 | HEMODYNAMI ---
PATIENT:VIBHA ZHONG MEDICAL RECORD: [id number] : 54 [id number] ADMISSION DATE: 10/06/19 Generatedon:10/07/201910:48 Patient name: VIBHA ZHONG Patient #: [id number] SSN: [id number] : 1950 Date of study: 10/07/2019 Page: Of Hemodynamic Procedure Report Patient Data Patient Demographics Procedure consent was obtained First Name: VIBHA Gender: Male Last Name: TREVIN : 1950 [facility] Initial: KIMBERLY Age: 69 year(s) Patient #: [id number] Race: SSN: [id number] Additional ID: [id number] Contact details Address: [address] [place] [address] State: [place] City: [place] Zip code: [address] Past Medical History History of disease Date Diagnosis Comments CAD Allergies Allergen Reaction Date Comments Reported Other allergy 07/29/2019 MORPHINE, PCN, LISINOPRIL, HYDROCORTISONE, STATINS Other allergy 10/07/2019 HYDROCORTISONE, LISINOPRIL, MORPHINE, PCN, STATINS Admission Admission Data Admission Date: 10/06/2019 Admission Time: 19:19 Arrival Date: 10/06/2019 Arrival Time: 0:00 Admit Source: Emergency department Room #: D.2116 Height (in.): 72 BSA: 1.96 (m2) Height (cm.): 182.88 BMI: 22.42 (kg/m2) Weight (lbs.): 165.35 Weight (kg.): 75 Lab Results Lab Result Date: 10/07/2019 Lab Result Time: 0:00 Biochemistry Name Units Result Min Max BUN mg/dl 17 --(---*)-- 7 18 Creatinine mg/dl 1.2 --(---*)-- 0.6 1.3 eGFR ml/min 64.76683 *-(----)-- 90 120 NONAFRICAN CBC Name Units Result Min Max Hematocrit % 38.3 *-(----)-- 42 54 Hemoglobin g/dl 12.7 -*(----)-- 13.5 17.5 Procedure Procedure Types Cath Procedure Diagnostic Procedure [facility] w/Coronaries w/Grafts Sedation Charges Moderate Sedation up to 30 minutes PCI Procedure Coronary Stent Coronary Stent Initial Hemochron ACT Test Procedure Description Procedure Date Procedure Date: 10/07/2019 Procedure Start Time: 10:04 Procedure End Time: 10:44 Procedure Staff Name Function Travis Jacobo MD Performing Physician Dee Bonilla RT Monitor Jory Martínez RT Scrub Rubio Short RN Nurse Indication CAD Procedure Data Cath Procedure Fluoroscopy Diagnostic fluoroscopy Total fluoroscopy Time: time: 12.9 min 12.9 min Diagnostic fluoroscopy Total fluoroscopy dose: dose: 1003 mGy 1003 mGy Contrast Material Contrast Material Type Amount (ml) Isovue 300 205 Entry Location Entry Primary Successful Side Size Upsize Upsize Entry Closure Succes sful Closure Location (Fr) 1 (Fr) 2 (Fr) Remarks Device Remarks Femoral Right 5 Fr 7 Fr Exoseal artery Short Estimated blood loss: 10 ml Diagnostic catheters Device Type Used For End Catheter Placement MULTIPACK JL 4.0 5Fr Procedure catheter DIAGNOSTIC JL 3.5 5Fr Procedure catheter ([id number]) MULTIPACK 3DRC 5Fr Procedure catheter MULTIPACK Pigtail 5 Fr Procedure catheter Procedure Complications No complications Procedure Medications Medication Administration Route Dosage Oxygen etCO2 Nasal cannula 2 l/min Lidocaine 2% added to field 20 Heparin Flush Bag added to field 2 bags (1000units/500ml NS) 0.9% NaCl I.V. 100 ml/hr Versed I.V. 2 mg Fentanyl I.V. 100 mcg Versed I.V. 1 mg Heparin Bolus I.V. 5000 units Plavix P.O. 75 mg Hemodynamics Rest BSA: 1.96 (m2) HGB: 12.7 (g/dl) O2 Consumption: Estimated: 247.91 (ml/min) O2 Co nsumption indexed: Estimated:126.48 (ml/min/m) Heart Rate: 97 (bpm) Pressure Samples Time Site Value (mmHg) Purpose Heart Use Rate(bpm) 10:13 LV 139/9,22 Snapshot 88 10:14 AO 137/65(96) Pullback 90 10:14 LV 143/39,18 Pullback 90 Gradients Valve Time Site 1 Site 2 Mean SEP/DFP Peak To Heart Use (mmHg) (sec/min) Peak Rate (mmHg) (bpm) Aortic 10:14 LV AO 6 90 143/39,18 137/65(96) Calculations Valve P-P Mean Valve Index Valve Source Name Gradient Area Flow (cm2) Aortic 6 6 Snapshots Pre Cath Intra NCS Post Cath Vital Signs Time Heart Resp SPO2 etCO2 NIBP (mmHg) Rhythm Pain Sedation Rate (ipm) (%) (mmHg) Status Level (bpm) 9:48:50 98 15 93 0 161/93(127) NSR 0 (11) 10(A) , No pain 9:53:08 94 16 92 23.4 161/91(121) NSR 0 (11) 10(A) , No pain 9:57:26 88 16 92 21.9 152/80(116) NSR 0 (11) 10(A) , No pain 10:01:38 78 24 96 28.7 143/72(106) NSR 0 (11) 10(A) , No pain 10:05:54 82 14 94 30.2 148/74(103) NSR 0 (11) 10(A) , No pain 10:10:12 84 14 96 27.9 141/72(99) NSR 0 (11) 10(A) , No pain 10:14:22 90 14 95 20.4 137/80(101) NSR 0 (11) 10(A) , No pain 10:18:40 88 16 96 20.4 142/77(97) NSR 0 (11) 10(A) , No pain 10:22:58 89 17 94 18.9 147/78(109) NSR 0 (11) 9(A) , No pain 10:27:16 86 17 95 5.3 144/81(98) NSR 0 (11) 9(A) , No pain 10:31:32 90 18 95 25.7 156/92(121) NSR 0 (11) 9(A) , No pain 10:35:48 91 17 96 28.7 165/93(131) NSR 0 (11) 9(A) , No pain 10:40:10 81 16 95 10.5 148/81(111) NSR 0 (11) 10(A) , No pain 10:44:24 77 14 96 27.9 135/74(107) NSR 0 (11) 10(A) , No pain Medications Time Medication Route Dose Verified Delivered Reason Notes Effectiveness by by 9:47:06 Oxygen etCO2 2 Travis Rubio used for Nasal l/min [facility] Rigo Short procedure cannula MD ELAM 9:47:13 Lidocaine 2% added 20ml Travis Travis for local to vial [facility] anesthetic field MD RICKETTS 9:47:19 Heparin Flush added 2 Travis Travis used for Bag to bags [facility] procedure (1000units/500ml field MD RICKETTS NS) 9:47:28 0.9% NaCl I.V. 100 Travis Rubio Per physician ml/hr [facility] Rigo Short MD, RN 10:02:59 Versed I.V. 2 mg Travis Rubio for sedation [facility] Rigo Short MD, RN 10:03:10 Fentanyl I.V. 100 Travis Rubio for sedation mcg St Rigo Short MD, RN 10:04:30 Versed I.V. 1 mg Travis Rubio for sedation St Rigo Short MD, RN 10:20:11 Heparin Bolus I.V. [address] units [facility] Rigo Short anticoagulation MD ELAM 10:40:28 Plavix P.O. 75 mg [address] for [facility] Rigo Short antiplatelet MD ELAM therapy Procedure Log Time Note 9:21:38 Informed consent obtained and on chart 9:21:57 Procedure Status Urgent Heart Cath (IP). 9:21:59 Time tracking: Regular hours (M-F 7:00 - 5:00) 9:22:02 Plan of Care:Hemodynamics will remain stable., Cardiac rhythm will remain stable., Comfort level will be maintained., Respiratory function will remain adequate., Patient/ family verbilizes understanding of procedure., Procedure tolerated without complication., Recovers from procedure without complications.. 9:22:05 Rubio Short RN sent for patient. Start room use. 9:36:14 H&P Date Dictated: 10/06/2019 Within 30 days and on chart., H&P Addendum completed by physician on day of procedure. (MUST COMPLETE FOR ALL OUTPATIENTS). 9:36:51 Patient allergic to Other allergyHYDROCORTISONE, LISINOPRIL, MORPHINE, PCN, STATINS 9:38:02 Lab Result : BUN 17 mg/dl 9:38:02 Lab Result : Creatinine 1.2 mg/dl 9:38:02 Lab Result : eGFR NONAFRICAN 64.27311 ml/min 9:38:02 Lab Result : Hemoglobin 12.7 g/dl 9:38:02 Lab Result : Hematocrit 38.3 % 9:38:08 Stress Test: no; N/A ? 9:42:00 Risk of Mortality: .1 9:42:03 Risk of blood transfusion: .2 9:42:05 Risk of HUSEYIN: 2.1 9:42:21 Patient received from Med II to CCL 1 Alert and oriented. Tansferred to table in Supine position. 9:42:22 Warm blankets applied, and zana hugger turned on for patient comfort. 9:42:23 Correct patient and procedure confirmed by team. 9:42:23 ECG and BP/O2 sat monitors applied to patient. 9:47:06 Oxygen 2 l/min etCO2 Nasal cannula was administered by Rubio Short RN; used for procedure; Verbal order read back and verified. 9:47:13 Lidocaine 2% 20ml vial added to field was administered by Travis Jacobo MD; for local anesthetic; Verbal order read back and verified. 9:47:19 Heparin Flush Bag (1000units/500ml NS) 2 bags added to field was administered by Travis Jacobo MD; used for procedure; Verbal order read back and verified. 9:47:28 0.9% NaCl 100 ml/hr I.V. was administered by Rubio Short RN; Per physician; Verbal order read back and verified. 9:47:33 Vital chart was started 9:50:22 Baseline sample Acquired. 9:50:33 Rhythm: sinus rhythm 9:50:35 Full Disclosure recording started 9:50:36 Pre-procedure instructions explained to patient. 9:50:36 Pre-op teaching completed and patient verbalized understanding. 9:50:38 Family in patients room. 9:50:39 Patient NPO since Midnight. 9:50:41 Is the patient allergic to Iodine/contrast media? No. 9:50:43 Is patient on blood thinner?Yes 9:50:52 PLAVIX YESTERDAY. 9:51:15 Patient diabetic? No. 9:51:20 Previous problem with sedation/anesthesia? No ? 9:51:21 Snore? Yes 9:51:22 Sleep apnea? Yes 9:51:23 Deviated septum? No 9:51:25 Opens mouth fully? Yes 9:51:27 Sticks out tongue? Yes 9:51:31 Airway obstruction? Yes COPD 9:51:35 Dentures? Yes ? 9:51:38 Pre procedure: right dorsailis pedis pulse 1+ Palpable, but thready & weak; easily obliterated 9:51:41 Patient pain scale 0/10 ?. 9:51:46 IV patent on arrival in left forearm with 0.9% NaCl at [facility]. 9:51:48 Lab results completed and on chart. 9:51:54 Right groin area was prepped with chlora-prep and draped in sterile fashion 9:51:55 Alarms reviewed by R. N. 9:51:55 Sharps counted by scrub and verified by R.N. 9:52:04 Procedure type changed to Cath procedure, Diagnostic procedure, LHC, LHC w/Coronaries w/Grafts, Sedation Charges, Moderate Sedation up to 30 minutes, PCI procedure, Coronary Stent, Coronary Stent Initial, Hemochron ACT Test 9:52:26 Use device set Femoral Dx 9:52:27 ACIST Syringe (90977) opened to sterile field. 9:52:28 Bag Decanter (2002S) opened to sterile field. 9:52:29 ACIST Manifold (69331) opened to sterile field. 9:52:30 ACIST Hand Control (82556) opened to sterile field. 9:52:31 Tegaderm 4 x 4 (1626W) opened to sterile field. 9:52:33 Medline Cath Pack ([id number]) opened to sterile field. 9:52:33 DIAGNOSTIC Multipack 5Fr catheter set (YS8711) opened to sterile field. 9:52:35 SHEATH 5FR Irvine (XHF191) opened to sterile field. 9:52:35 EMERALD Guide Wire (601-930) opened to sterile field. 9:58:09 Patient Weight : 165.35 lbs 9:58:12 Patient Height : 72 inches 9:58:22 Arrival Date: 10/06/2019 12:00:00 AM 9:58:25 Admit Source: Emergency department 9:58:34 Indication : CAD 9:58:55 Zero performed for pressure channel P1 10:02:10 --------ALL STOP TIME OUT------ 10:02:11 Final Timeout: patient, procedure, and site verified with staff and physician. All members of the team are in agreement. 10:02:13 Right groin site verified by team. 10:02:15 Fire Safety Assessment: A--An alcohol-based skin anteseptic being used preoperatively., C--Open oxygen or nitrous oxide is being used., D--An ESU, laser, or fiber-optic light is being used. 10:02:21 Physical assessment completed. ASA score P 3 - A patient with severe systemic disease as per Travis Jacobo MD. 10:02:24 2) 60-89 Mildly reduced kidney function, and other findings (as for stage 1) point to kidney disease. 10:02:27 Maximum allowable contrast dose (3.7 X eGFR X 0.75)178 ml. 10:02:31 Sedation plan: IV Moderate Sedation Medication:Versed, Fentanyl 10:02:41 Zero performed for pressure channel P1 10:02:59 Versed 2 mg I.V. was administered by Rubio Short RN; for sedation; Verbal order read back and verified. 10:03:10 Fentanyl 100 mcg I.V. was administered by Rubio Short RN; for sedation; Verbal order read back and verified. 10:03:50 Zero performed for pressure channel P1 10:03:56 Procedure started. 10:04:08 Local anesthetic to right femoral artery with Lidocaine 2% by Travis Jacobo MD.INITIAL ACCESS ONLY 10:04:30 Versed 1 mg I.V. was administered by Rubio Short RN; for sedation; Verbal order read back and verified. 10:05:29 A 5 Fr sheath was inserted into the Right Femoral artery 10:05:41 A MULTIPACK JL 4.0 5Fr catheter was advanced over the wire and used for Procedure. 10:07:14 Catheter removed. 10:07:21 UNABLE TO ENGAGE LCA. 10:07:43 A DIAGNOSTIC JL 3.5 5Fr catheter ([id number]) was advanced over the wire and used for Procedure. 10:08:53 LCA angiography performed. 10:09:12 Catheter removed. 10:09:19 A MULTIPACK 3DRC 5Fr catheter was advanced over the wire and used for Procedure. 10:12:12 RCA angiography performed. 10:12:45 SVG to LAD angiography performed. 10:12:47 Catheter removed. 10:12:52 A MULTIPACK Pigtail 5 Fr catheter was advanced over the wire and used for Procedure. 10:13:42 LV gram done using MORIN 10:13:45 Injector settings: Ml/sec: 10, Volume: 20, 10:13:55 LV hemodynamics recorded. 10:14:13 EF : 50 % 10:14:14 Catheter removed. 10:15:29 SHEATH 7FR Irvine (FTD633) opened to sterile field. 10:15:29 BMW 300cm Straight Edmond 2 wire ([id number]) opened to sterile field. 10:15:30 INFLATOR Merit BasixCompak (MI6784) opened to sterile field. 10:15:30 WHISPER 300cm guide wire ([id number]) opened to sterile field. 10:15:40 GUIDE 7FR HS I catheter (LA7HSI) opened to sterile field. 10:15:45 Proceeding to intervention. 10:15:54 Sheath upsized to a 7 Fr Short. 10:16:42 7 Fr HS 1 guide catheter was inserted over the wire 10:19:05 Guide Catheter removed. unable to cannulate vessel. 10:19:58 GUIDE 7FR AR 1.0 catheter ([id number]) opened to sterile field. 10:20:08 7 Fr AR 1 guide catheter was inserted over the wire 10:20:11 Heparin Bolus 5000 units I.V. was administered by Rubio Short RN; for anticoagulation; Verbal order read back and verified. 10:22:47 WHISPER 300 wire advanced. 10:24:10 Pre PCI Site: [place] mRCA has 95% stenosis. 10:27:03 Inflate balloon Inflation number: 1 A EMERGE OTW 3.0 x 15 balloon ([id number]) was prepped and advanced across the Mid RCA , then inflated to 12 TANYA for 0:00 (min:sec) . 10:28:04 Inflation number: 2 The EMERGE OTW 3.0 x 15 balloon ([id number]) was reinflated across the Mid RCA , to 10 TANYA for 0:00 (min:sec) . 10:29:55 Inflation number: 1 The EMERGE OTW 3.0 x 15 balloon ([id number]) was reinflated across the Prox RCA , to 10 TANYA for 0:00 (min:sec) . 10:30:21 Balloon removed over the wire. 10:34:51 Place stent Inflation Number: 3 A SABINA OTW 3.0 x 18 stent ([id number]) was prepped and advanced across the Mid RCA . The stent was deployed at 16 TANYA for 0:00 (min:sec) . 10:36:35 Inflation number: 2 The stent balloon was then re-inflated across the Prox RCA to 12 TANYA for 0:00 (min:sec) . 10:36:39 Balloon removed over the wire. 10:36:40 Wire removed. 10:36:41 Guide catheter removed. 10:37:00 EXOSEAL 7Fr (EX700) opened to sterile field. 10:37:57 Sheath removed intact; hemostasis achieved with Exoseal to the Right Femoral artery. 10:38:03 Procedure ended.(Physican Out) 10:39:02 Fluoroscopy time 12.90 minutes. 10:39:06 Flurop Dose total: 1003 10:39:06 Fluoroscopy dose: 1003 mGy 10:39:13 Dose Area Product 84532 mGy/cm. 10:39:17 Contrast amount:Isovue 300 205ml. 10:39:21 Maximum allowable dose exceeded? Yes. 10:39:22 Sharps counted by scrub and verified by R.N. 10:39:25 Post-op/insertion site Right Femoral artery dressed using a 4 x 4 and Tegaderm. 10:39:31 Post-procedure physical assessment completed. ASA score P 3 - A patient with severe systemic disease as per Travis Jacobo MD. 10:39:34 Post procedure rhythm: sinus rhythm 10:39:38 Estimated blood loss: 10 ml 10:39:40 Post procedure instruction explained to patient.Patient verbalizes understanding. 10:39:40 Patient needs reinforcement of post procedure teaching. 10:40:28 Plavix 75 mg P.O. was administered by Rubio Short RN; for antiplatelet therapy; Verbal order read back and verified. 10:41:33 ACT drawn and resulted at 181 seconds. (normal therapeutic range 180-240 seconds). 10:41:38 Procedure and supply charges have been captured, reviewed, submitted and are correct. 10:41:40 Procedure Complication : No complications 10:41:43 [facility] Findings: MVD- PCI performed (see procedure note) 10:41:44 Operative report dictated upon procedure completion. 10:41:44 See physician's report for complete and final results. 10:44:31 Vital chart was stopped 10:44:38 Report given to [facility]. 10:44:41 Patient transfered to [facility] with Bed. 10:44:42 Procedure ended. 10:44:42 Full Disclosure recording stopped 10:44:51 ACC-PCI Only Patient was given prescriptions, or instructed by Travis Jacobo MD to start/continue the following medications upon discharge: Plavix 10:44:52 End room use (Document Last) 10:47:38 End room use (Document Last) 10:47:57 End room use (Document Last) Intervention Summary Intervention Notes Time ActionType Lesion and Equipment Action# Pressure Duration Attributes Used 10:27:03 Inflate Mid RCA EMERGE OTW 1 12 00:00 balloon 3.0 x 15 balloon ([id number]) 10:28:04 Reinflate Mid RCA EMERGE OTW 2 10 00:00 balloon 3.0 x 15 balloon ([id number]) 10:29:55 Reinflate Prox RCA EMERGE OTW 1 10 00:00 balloon 3.0 x 15 balloon ([id number]) 10:34:51 Place stent Mid RCA SABINA OTW 3.0 3 16 00:00 x 18 stent ([id number]) 10:36:35 Reinflate Prox RCA SABINA OTW 3.0 2 12 00:00 stent x 18 stent balloon ([id number]) Device Usage Item Name Manufacture Quantity Catalog Number Hospital Part Current M inimal Lot# / Charge Number Stock Stock Serial# Code ACIST Syringe Acist 1 43852 043892 748051 067396 2 0 (79640) Medical Systems Inc Bag Decanter Microtek 1 2001S 002982 59548 561263 5 (2001S) Medical Inc. ACIST Acist 1 14058 758134 538543 423341 5 Manifold Medical (77653) Systems Inc ACIST Hand Acist 1 70391 946377 698350 991923 5 Control Medical (82798) Systems Inc Tegaderm 4 x 3M 1 1626W 908015 646439 481644 5 4 (1626W) Medline Cath Medline 1 [id number] 637730 68797 760943 5 Pack ([id number]) DIAGNOSTIC Cardinal 1 QI8575 661385 11606 359818 3 0 Multipack 5Fr Health catheter set (XM7037) SHEATH 5FR Terumo 1 NDS654 822346 428315 756776 5 Irvine (HCI644) EMERALD Guide Cardinal 1 502-455 368118 554489 836442 5 Wire Health (502-455) MULTIPACK JL Cardinal 1 011889 5 4.0 5Fr Health catheter DIAGNOSTIC JL Cardinal 1 [id number] 885043 050023 846618 5 3.5 5Fr Health catheter (337656T) MULTIPACK Cardinal 1 369905 5 3DRC 5Fr Health catheter MULTIPACK Cardinal 1 472593 5 Pigtail 5 Fr Health catheter SHEATH 7FR Terumo 1 GUA584 052147 253609 062141 5 Irvine (DGV580) BMW 300cm Alcantara 1 5462741 557802 088836 809762 5 Straight Vascular Edmond 2 wire (6223836) INFLATOR [facility] 1 LF7557 627724 449999 627491 1 5 [email or web address] Medical BasixCompak (DL4893) WHISPER 300cm Alcantara 1 [id number] 348497 725405 922846 5 guide wire Vascular ([id number]) GUIDE 7FR HS Medtronic 1 LA7HSI 236974 359880 318582 0 I catheter (LA7HSI) GUIDE 7FR AR Medtronic 1 PW1NR24 176130 667463 533657 0 1.0 catheter (UJ7XN73) EMERGE OTW Ebony 1 [id number] 267709 382812 575713 5 [id number] 3.0 x 15 Scientific balloon ([id number]) SABINA OTW 3.0 Medtronic 1 [id number] 434024 2247149 577558 5 [id number] x 18 stent ([id number]) EXOSEAL 7Fr Cardinal 1 EX700 111548 013395 709993 5 (EX700) Health Signature Audit [place] Stage Time Signature Unsigned Intra-Procedure 10/07/2019 Dee Bonilla 10:47:38 AM RT(R) Intra-Procedure 10/07/2019 Rubio 10:47:57 AM Han ELAM Intra-Procedure 10/07/2019 Travis Serra 10:48:14 AM Rigo RICKETTS [facility] [address] [id number]
--- NOTE | ~2019-10-06 | CN ---
PATIENT NAME:VIBHA ZHONG MEDICAL RECORD: [id number] : 54 LOCATION:[facility] D.2116 ADMIT DATE: 10/06/19 ACCOUNT: [id number] CONSULTING PHYSICIAN: JEFF MURRAY MD REFERRING PHYSICIAN: JEFF OLSON MD DATE OF CONSULTATION: 10/07/2019 HISTORY OF PRESENT ILLNESS: A 69-year-old gentleman with a history of coronary artery disease, status post intervention by Dr. Conway. He has a history obstructive pulmonary disease, admitted with dyspnea, shortness of breath, had chest pain along with COPD exacerbation, so she ruled in for a NSTEMI. We are asked to see him concerning his cardiovascular status. PAST MEDICAL HISTORY: History of coronary artery disease as described above. PAST MEDICAL HISTORY: 1. Obstructive pulmonary disease. 2. Hypertension. 3. Hyperlipidemia. ALLERGIES: STATINS, LISINOPRIL CAUSES COUGH, MORPHINE, HYDROCORTISONE, AND PENICILLIN. SOCIAL HISTORY: Nonsmoker, nondrinker. Easily takes care of all his ADLs. MEDICATIONS: Albuterol 2 puffs q.4 hours p.r.n., ANORO Ellipta one puff every day, Plavix 75 every day, amlodipine 10 every day, carvedilol 25 b.i.d., Zetia 10 every day, aspirin 81 every day, and Willard 10/325 every day. PHYSICAL EXAMINATION: GENERAL: Pleasant gentleman, appears stated age. VITAL SIGNS: Blood pressure 158/87, pulse 93 and regular. HEENT: Normocephalic, atraumatic. NECK: No JVD or bruit. HEART: Regular. LUNGS: Prolonged expiratory phase with few expiratory wheezes. ABDOMEN: Soft, nontender. EXTREMITIES: Pulses 2+. No edema. IMPRESSION: NSTEMI. This may be a type 2, although given multiple interventions concerned about type 1. We will plan for angiography intervention based on above. TRANSINT:[id number] Voice Confirmation ID: [id number] DOCUMENT ID: [id number] JEFF MURRAY MD CC: [id number] DICTATION DATE: 10/07/19 1000 SUPERVISOR ADVICE: 10/07/19 1744 ADM IN [place] [address] [place] [address]
--- NOTE | ~2019-10-06 | OP ---
PATIENT NAME: VIBHA ZHONG MEDICAL RECORD: [id number] :54 LOCATION:D.M2 D.2116 ADMISSION DATE:10/06/19 SURGEON: JEFF MURRAY MD DATE OF OPERATION: 10/07/2019 PROCEDURE: Left heart catheterization, plus ZHOU, plus PTCA stent of the right coronary. FINDINGS: Left ventriculography in 30-degree MORIN view: Normal wall motion. Normal systolic function. CORONARY ANATOMY: LEFT MAIN: Left main is free of disease. Area of previous stenting is widely patent. LAD: Fills for a short period of time, then is seen filling competitive flow via the ZHOU. CIRCUMFLEX: Free of disease. RIGHT CORONARY: At the distal to the far stent shows a 90+ percent stenosis ZHOU to LAD is widely patent throughout its course. No evidence of post-anastomotic stenosis. IMPRESSION: Culprit obviously right coronary. PLAN: Intervention momentarily. DESCRIPTION: A 5-Hong Konger sheath was exchanged for a 7-Hong Konger sheath. An AR guiding catheter provided good guide catheter support. This was followed by 300 cm Whisper wire. Predeployment balloon was a 3.0 x 15 mm [place] balloon up to 10 atmospheres. Next, a stent deployed was a 3.0 x 15 mm Jack drug-eluting stent up to 14 atmospheres for 45 seconds. Final angiography shows excellent resolution of 90 plus end stent restenosis. No significant residual. LEONOR flow was 3 throughout the procedure. The patient was previously on Plavix. Heparin was used during the case. Sheath was closed with ExoSeal device. TRANSINT:[id number] Voice Confirmation ID: [id number] DOCUMENT ID: [id number] JEFF MURRAY MD CC: [id number] DICTATION DATE: 10/07/191044 WRAPPER STEMMER HAND: 10/07/191953 ADM IN [facility] [address] [place] [address]
[~2019-10-06 16:05] MED LIST: ALBUTEROL SULF8.5 GM INH; ANORO ELLIPTA1 EACH INH; ASPIRIN81 MG PO; COREG25 MG PO; DALIRESP500 MCG PO; HYDROCODON-ACE1 EA10 PO; IPRAT-ALBUT 0.5-3 ML UPD; MUCINEX DM ER1 EAC1 PO; NORVASC10 MG PO; OMNICEF300 MG PO; PLAVIX75 MG PO; ZETIA10 MG PO; ZOFRAN4 MG PO; ZPAK PO
[2019-10-06 16:38] LABS: BASOPHILS 0.6 % (0-2); EOSINOPHILS 20.5 % (0-7); HEMATOCRIT 38.3 % (42.0-54.0); HEMOGLOBIN 12.7 g/dL (13.5-17.5); IMMATURE GRANULOCYTES 0.2 % (0-5); LYMPHOCYTES 22.6 % (15-50); MCH 29.5 pg (26.0-34.0); MCHC 33.2 g/dL (31.0-37.0); MCV 89.1 fL (80.0-100.0); MEAN PLATELET VOLUME 8.9 fL (7.4-10.4); MONOCYTES 9.3 % (2-11); NEUTROPHILS 46.8 % (40-80); RDW 12.9 % (11.5-14.5); WBC 6.6 10x3/uL (4.8-10.8)
[2019-10-06 16:42] LABS: PLATELET COUNT 278 10x3/uL (130-400)
[2019-10-06 16:55] LABS: APTT 25.9 SECONDS (22.8-39.4); INR 0.96 (0.85-1.17); PROTIME 12.7 SECONDS (11.6-15.0)
[2019-10-06 16:58] VITALS: BP 140/76
[2019-10-06 17:46] LABS: CALC OSMOLALITY 276 mosm/kg (275-300); CALCIUM 8.4 mg/dL (8.5-10.1); CARBON DIOXIDE 27.6 mmol/L (21.0-32.0); CHLORIDE - SERUM 100 mmol/L (98-107); CREATININE - SERUM 1.2 mg/dL (0.6-1.3); GLUCOSE 125 mg/dL (74-106); POTASSIUM - SERUM 3.4 mmol/L (3.5-5.1); SODIUM 137 mmol/L (136-145); UREA NITROGEN 17 mg/dL (7-18); eGFR NON AFRICAN AMERICAN 64 mL/min (90-120)
[2019-10-06 17:50] VITALS: BP 168/83
[2019-10-06 18:04] LABS: ALBUMIN 3.5 g/dL (3.4-5.0); ALKALINE PHOSPHATASE 168 U/L (46-116); ALT (SGPT) 21 U/L (10-68); BILIRUBIN - TOTAL 0.31 mg/dL (0.2-1.3); CKMB 1.4 U/L (0.0-3.6); CREATINE KINASE 85 UL (21-232); PROTEIN - SERUM 7.3 g/dL (6.4-8.2)
[2019-10-06 18:06] LABS: TROPONIN-I 0.114 ng/mL (0.000-0.060)
--- NOTE | 2019-10-06 19:16 | NUR ---
PT PROVIDED SANDWICH BOX AND WATER. PT SITTING UPRIGHT IN BED. NO S/S OF ACUTE DISTRESS NOTED.
--- NOTE | 2019-10-06 20:08 | NUR ---
REPORT RECIEVED FROM ER.
--- NOTE | 2019-10-06 20:30 | NUR ---
ADMIT TO ROOM 2115 FROM ER. ALERT/ORIENTED. ADMISSION HISTORY AND ASSESSMENT COMPLETED. HOME MEDS REVEIWED AND UPDATED. PT ALERT/ORIENTED. PIV SALINE LOCKED TO LEFT FOREARM. TELEMETRY INITIATED SHOWING SR/78 PER TELEMETRY. PT ALSO HAS A PACEMAKER AND AN EXTENSIVE CARDIAC HISTORY OF CABG/STENTS. INSTRUCTED ON NPO AFTER MIDNIGHT UNTIL SEEN BY GENERATOR TECHNICIAN IN AM.
[2019-10-06] MEDS ORDERED: NITROQUICK0.4 MG SL (21:13)
--- NOTE | 2019-10-06 22:49 | NUR ---
PT C/O GENERALIZED PAIN ALL OVER. MEDICATED WITH DILAUDID 1MG SIVP FOR PAIN. PROVIDED FRESH WATER AND POPSICLES FOR A DRY COUGH. WILL MONITOR.
[2019-10-06 23:26] VITALS: BP 168/93; BMI 22.4
[2019-10-07 00:20] VITALS: BP 114/69
[2019-10-07 04:30] VITALS: BP 146/88
--- NOTE | 2019-10-07 05:18 | NUR ---
NO CHANGE FROM INITIAL SHIFT ASSESSMENT. CPOC. CALL LIGHT IN REACH.
--- NOTE | 2019-10-07 05:20 | NUR ---
NO CHANGE FROM INITIAL SHIFT ASSESSMENT. CPOC. CALL LIGHT IN REACH.
[2019-10-07 08:09] VITALS: BP 158/87
--- NOTE | 2019-10-07 09:38 | NUR ---
CONSENTS SIGNED, PRE-OPS GIVEN. LEAVING FOR MARKET DEVELOPMENT SPECIALIST BY BED.
[2019-10-07 09:41] LABS: BASOPHILS 0 % (0-2); EOSINOPHILS 0 % (0-7); HEMATOCRIT 36.5 % (42.0-54.0); HEMOGLOBIN 12.2 g/dL (13.5-17.5); IMMATURE GRANULOCYTES 0.1 % (0-5); LYMPHOCYTES 10.5 % (15-50); MCH 29.7 pg (26.0-34.0); MCHC 33.4 g/dL (31.0-37.0); MCV 88.8 fL (80.0-100.0); MEAN PLATELET VOLUME 8.8 fL (7.4-10.4); MONOCYTES 3.3 % (2-11); NEUTROPHILS 86.1 % (40-80); PLATELET COUNT 279 10x3/uL (130-400); RBC 4.11 10x6/uL (4.20-6.10); WBC 7.3 10x3/uL (4.8-10.8)
[2019-10-07 10:04] LABS: CALCIUM 8.8 mg/dL (8.5-10.1); CARBON DIOXIDE 24.1 mmol/L (21.0-32.0); CREATININE - SERUM 1.3 mg/dL (0.6-1.3); LDL-HDL RATIO 2.6 ratio (1.5-3.5)
[2019-10-07 10:06] LABS: POTASSIUM - SERUM 4.1 mmol/L (3.5-5.1)
--- NOTE | 2019-10-07 11:08 | NUR ---
BACK FROM PAINT LABORATORY TECHNICIAN. VS WNL. RIGHT GROIN STABLE WITHOUT BLEEDING OR HEMATOMA NOTED. WILL MONITOR.
[2019-10-07 11:32] VITALS: BP 135/68
[2019-10-07 14:04] VITALS: BMI 22.3
--- NOTE | 2019-10-07 14:55 | NUR ---
BED REST UP. GROIN STABLE.
[2019-10-07 15:22] VITALS: BP 148/84
[2019-10-07 17:27] VITALS: Ht 182.9 cm; Wt 83.1 kg
[2019-10-07 18:10] LABS: % SATURATION 26 % (15-55); IRON 73 ug/dl (35-150); TOTAL IRON BIND CAPACITY 279 ug/dl (260-445); UNSAT IRON BIND CAPACITY 206 ug/dl (150-375)
[2019-10-07 18:32] LABS: APPEARANCE CLEAR (CLEAR); BILIRUBIN NEGATIVE (NEGATIVE); COLOR YELLOW (YELLOW); GLUCOSE NEGATIVE (NEGATIVE); KETONE NEGATIVE (NEGATIVE); NITRITE NEGATIVE (NEGATIVE); PROTEIN NEGATIVE (NEGATIVE); SPECIFIC GRAVITY 1.015 (1.005-1.020); UROBILINOGEN NORMAL (NORMAL)
--- NOTE | 2019-10-07 19:20 | NUR ---
RECEIVED BEDSIDE REPORT. PATIENT IS ALERT AND ORIENTED, RESPIRATIONS ARE EVEN AND UNLABORED. NO S/S OF DISTRESS. NO C/O PAIN. NEEDS MET. CALL LIGHT WITHIN REACH. WILL CPOC.
[2019-10-07 20:00] VITALS: BP 105/57
[2019-10-08] VITALS: BP 114/64
[2019-10-08 04:00] VITALS: BP 117/72
[2019-10-08 07:01] LABS: BASOPHILS 0.2 % (0-2); HEMATOCRIT 36.4 % (42.0-54.0); HEMOGLOBIN 11.7 g/dL (13.5-17.5); IMMATURE GRANULOCYTES 0.2 % (0-5); LYMPHOCYTES 14.1 % (15-50); MCH 29.2 pg (26.0-34.0); MCHC 32.1 g/dL (31.0-37.0); NEUTROPHILS 76.5 % (40-80); PLATELET COUNT 282 10x3/uL (130-400); RBC 4.01 10x6/uL (4.20-6.10); RDW 13.3 % (11.5-14.5)
[2019-10-08 07:11] LABS: MCV 90.8 fL (80.0-100.0)
[2019-10-08 07:32] LABS: ANION GAP 10.4 mmol/L (8-16); CALCIUM 8.2 mg/dL (8.5-10.1); CREATININE - SERUM 1.2 mg/dL (0.6-1.3); POTASSIUM - SERUM 4.6 mmol/L (3.5-5.1)
[2019-10-08 07:33] LABS: CARBON DIOXIDE 31.2 mmol/L (21.0-32.0)
[2019-10-08 07:58] VITALS: BP 128/67
[2019-10-08 11:37] VITALS: BP 100/52
--- NOTE | 2019-10-08 14:03 | NUR ---
02 SAT 89% AT REST AND 92% AFTER WALKING NURSES STATION.
--- NOTE | 2019-10-08 15:59 | NUR ---
IV AND TELEMETRY DCD. DC PLANS GIVEN. UNDERSTANDING VOICED.
--- NOTE | 2019-10-09 06:46 | MORECARE ---
CASE MANAGEMENT DISCHARGE SUMMARY PATIENT: VIBHA ZHONG UNIT: [id number] ADM DATE: 10/06/19 AGE: 69 : 54 SEX: M ROOM/BED: D.2116 AUTHOR: KATHRYN CÁRDENAS PHYSICIAN: REFERRING PHYSICIAN: JEFF OLSON MD DATE OF SERVICE: 10/09/19 Discharge Plan Patient Name: VIBHA ZHONG [facility] : 1950 Planned Disposition: Home Anticipated Discharge Date: 10/08/19 Discharge Date: 10/08/2019 Expected LOS: 2 Initial Reviewer: [email or web address] Initial Review Date: 10/09/2019 Generated: 10/09/19 7:46 am Coverage Notice Reviewer: [email or web address] Mustapha Tavarez Notice Issued Date-Time: 10/06/2019 19:35 Notice Type: Medicare Outpatient Observation Notice Notice Delivered To: Patient 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 Original given to patient and one placed on chart. Patient Name: VIBHA ZHONG Page [phone] at 0646 All edits/amendments must be made on the electronic document DICTATION DATE: 10[birth year]09/1944 MATCHER OPERATOR: CHERY 10/09/19 0646 RPT#: [id number] DC DATE:10/08/19 STATUS: DIS IN [facility] [address] [place] [address] END OF REPORT
== END 2019-10-08 16:00 | disposition home or self-care (01) ==
LOC: D.ER 16:05 → D.M2 19:19 → OBSVTIME 19:19 → D.M2 19:19
PROVIDERS: Emergency Medicine; Internal Medicine Interventional Cardiology; Internal Medicine Nephrology; ADMIT Family Medicine; ATTEND Family Medicine
DX: I21.4 Non-ST elevation (NSTEMI) myocardial infarction (principal); J44.9 Chronic obstructive pulmonary disease, unspecified; I10 Essential (primary) hypertension; E78.5 Hyperlipidemia, unspecified; I25.110 Atherosclerotic heart disease of native coronary artery with unstable angina pectoris; N17.9 Acute kidney failure, unspecified; D64.9 Anemia, unspecified; E87.6 Hypokalemia; M19.90 Unspecified osteoarthritis, unspecified site
CPT/HCPCS: 93458; C9600

== ENCOUNTER 2019-10-14 06:31 | Outpatient (CLI) | payer MEDICARE, MEDICAID ==
[~2019-10-14] VITALS: Ht 182.9 cm; Wt 75.0 kg
--- NOTE | ~2019-10-14 | HEMODYNAMI ---
PATIENT:VIBHA ZHONG MEDICAL RECORD: [id number] : 54 LOCATION:[facility] ADMISSION DATE: 10/14/19 Generatedon:10/14/201913:10 Patient name: VIBHA ZHONG Patient #: [id number] SSN: [id number] : 1950 Date of study: 10/14/2019 Page: Of Hemodynamic Procedure Report Patient Data Patient Demographics Procedure consent was obtained First Name: VIBHA Gender: Male Last Name: TREVIN : 1950 Middle Initial: KIMBERLY Age: 69 year(s) Patient #: [id number] Race: SSN: [id number] Additional ID: [id number] Contact details [address]: [address] [place] [address] State: [place] City: [place] Zip code: [address] Past Medical History History of disease Date Diagnosis Comments CAD Allergies Allergen Reaction Date Comments Reported Other allergy 07/29/2019 MORPHINE, PCN, LISINOPRIL, HYDROCORTISONE, STATINS Other allergy 10/07/2019 HYDROCORTISONE, LISINOPRIL, MORPHINE, PCN, STATINS Admission Admission Data Admission Date: 10/14/2019 Admission Time: 6:31 Arrival Date: 10/14/2019 Arrival Time: 6:31 Admit Source: Emergency Insurance Payor: Medicare, department Medicaid [facility] #: [id number] Height (in.): 72.05 BSA: 1.97 (m2) Height (cm.): 183 BMI: 22.4 (kg/m2) Weight (lbs.): 165.35 Weight (kg.): 75 Lab Results Lab Result Date: 10/14/2019 Lab Result Time: 0:00 Biochemistry Name Units Result Min Max BUN mg/dl 22 --(----)-* 7 18 Creatinine mg/dl 1.4 --(----)*- 0.6 1.3 eGFR ml/min 54 *-(----)-- 90 120 NONAFRICAN CBC Name Units Result Min Max Hemoglobin g/dl 11.9 *-(----)-- 13.5 17.5 Procedure Procedure Types Cath Procedure Diagnostic Procedure LHC LHC w/Coronaries w/Grafts FFR/IVUS FFR Initial Sedation Charges Moderate Sedation up to 30 minutes PCI Procedure Coronary Stent Coronary Stent Initial PTCA PTCA Initial x2 Hemochron ACT Test Peripheral Cath Diagnostic Procedure Sound Effects Technician Peripheral Procedures AFRO (Diagnostic) Procedure Description Procedure Date Procedure Date: 10/14/2019 Procedure Start Time: 12:36 Procedure End Time: 13:05 Procedure Staff Name Function Dev Conway MD Performing Physician Linda Meier RT Monitor Tia Greco RT Scrub Rubio Short RN Nurse Procedure Data Cath Procedure Fluoroscopy Diagnostic fluoroscopy Total fluoroscopy Time: 6.8 time: 6.8 min min Diagnostic fluoroscopy Total fluoroscopy dose: 916 dose: 916 mGy mGy Contrast Material Contrast Material Type Amount (ml) Isovue 300 137 Entry Location Entry Primary Successful Side Size Upsize Upsize Entry Closure Succes sful Closure Location (Fr) 1 (Fr) 2 (Fr) Remarks Device Remarks Femoral Right 5 Fr 7 Fr Exoseal artery Short Estimated blood loss: 5 ml Diagnostic catheters Device Type Used For End Catheter Placement MULTIPACK Pigtail 5 Fr LV Angiography catheter MULTIPACK JL 4.0 5Fr Left Coronary catheter Angiography MULTIPACK 3DRC 5Fr Right Coronary catheter Angiography Procedure Complications No complications Procedure Medications Medication Administration Route Dosage 0.9% NaCl I.V. 100 ml/hr Oxygen etCO2 Nasal cannula 2 l/min Heparin Flush Bag added to field 2 bags (1000units/500ml NS) Lidocaine 2% added to field 20 Versed I.V. 2 mg Fentanyl I.V. 100 mcg Versed I.V. 1 mg Heparin Bolus I.V. 4000 units Hemodynamics Rest BSA: 1.97 (m2) HGB: 11.9 (g/dl) O2 Consumption: Estimated: 237.8 (ml/min) O2 Con sumption indexed: Estimated:120.71 (ml/min/m) Heart Rate: 82 (bpm) Pressure Samples Time Site Value (mmHg) Purpose Heart Use Rate(bpm) 12:38 LV 109/6,13 Snapshot 75 Snapshots Pre Cath Intra NCS Post Cath Vital Signs Time Heart Resp SPO2 etCO2 NIBP (mmHg) Rhythm Pain Sedation Rate (ipm) (%) (mmHg) Status Level (bpm) 12:21:53 78 18 95 15.2 153/70(109) NSR 0 (11) 10(A) , No pain 12:26:10 78 17 96 11.4 135/70(95) NSR 0 (11) 10(A) , No pain 12:30:21 79 16 98 26.7 137/77(106) NSR 0 (11) 10(A) , No pain 12:34:34 79 18 98 16.7 140/79(100) NSR 0 (11) 10(A) , No pain 12:38:53 60 18 96 12.9 126/58(98) NSR 0 (11) 10(A) , No pain 12:43:07 60 15 95 16 117/60(89) NSR 0 (11) 9(A) , No pain 12:47:17 74 20 98 32.8 125/66(98) NSR 0 (11) 9(A) , No pain 12:51:31 73 18 96 25.9 127/60(88) NSR 0 (11) 9(A) , No pain 12:55:48 60 19 97 22.8 136/59(98) NSR 0 (11) 9(A) , No pain 13:00:03 60 18 97 23.6 128/66(95) NSR 0 (11) 10(A) , No pain 13:04:17 62 19 96 22.1 127/60(92) NSR 0 (11) 10(A) , No pain Medications Time Medication Route Dose Verified Delivered Reason Notes Effectiveness by by 12:20:06 0.9% NaCl I.V. 100 Rubio Rubio Per physician ml/hr Han Short RN RN 12:20:15 Oxygen etCO2 2 Rubio Rubio for low 02 sats Nasal l/min Han Short cannula RN RN 12:20:28 Heparin Flush added 2 Rubio Rubio used for Bag to bags Han Short procedure (1000units/500ml field ELAM RN NS) 12:20:40 Lidocaine 2% added 20ml Rubio Rubio for local to vial Han Short anesthetic field ELAM RN 12:34:55 Versed I.V. 2 mg Rubio Rubio for sedation Han Short RN RN 12:35:03 Fentanyl I.V. 100 Rubio Rubio for sedation mcg Han Short RN RN 12:38:08 Versed I.V. 1 mg Rubio Bergeron for sedation Han Short RN RN 12:46:33 Heparin Bolus I.V. 4000 Rubio Bergeron for units Han Short anticoagulation RN painting worker Log Time Note 11:54:48 Informed consent obtained and on chart 11:54:52 Diagnostic Cath Status : Urgent 11:58:10 Admit Source: Emergency department 11:58:15 Arrival Date: 10/14/2019 6:31:00 AM 11:58:31 Insurance Payor : Medicare, Medicaid 11:58:39 Patient Height : 72.05 inches 11:58:43 Patient Weight : 165.35 lbs 11:59:36 Lab Result : BUN 22 mg/dl 11:59:36 Lab Result : Creatinine 1.4 mg/dl 11:59:36 Lab Result : eGFR NONAFRICAN 54 ml/min 11:59:36 Lab Result : Hemoglobin 11.9 g/dl 11:59:36 Hemodynamic formulas in Rest were re-calculated based on hemoglobin value from 10/14/2019 12:00:00 AM 12:01:27 Rubio Short RN sent for patient. Start room use. 12:01:29 Time tracking: Regular hours (M-F 7:00 - 5:00) 12:01:33 Plan of Care:Hemodynamics will remain stable., Cardiac rhythm will remain stable., Comfort level will be maintained., Respiratory function will remain adequate., Patient/ family verbilizes understanding of procedure., Procedure tolerated without complication., Recovers from procedure without complications.. 12:08:28 Patient received from ED to CCL 2 Alert and oriented. Tansferred to table in Supine position. 12:08:29 Warm blankets applied, and zana hugger turned on for patient comfort. 12:08:30 Correct patient and procedure confirmed by team. 12:08:30 ECG and BP/O2 sat monitors applied to patient. 12:20:06 0.9% NaCl 100 ml/hr I.V. was administered by Rubio Short RN; Per physician; Verbal order read back and verified. 12:20:15 Oxygen 2 l/min etCO2 Nasal cannula was administered by Rubio Short RN; for low 02 sats; Verbal order read back and verified. 12:20:28 Heparin Flush Bag (1000units/500ml NS) 2 bags added to field was administered by Rubio Short RN; used for procedure; Verbal order read back and verified. 12:20:40 Lidocaine 2% 20ml vial added to field was administered by Rubio Short RN; for local anesthetic; Verbal order read back and verified. 12:20:43 Vital chart was started 12:20:58 Baseline sample Acquired. 12:21:01 Rhythm: sinus rhythm 12:21:06 Full Disclosure recording started 12:21:11 H&P Date Dictated: 10/14/2019 ER History on chart., New H&P dictated by physician.. 12:21:12 Pre-procedure instructions explained to patient. 12:21:13 Pre-op teaching completed and patient verbalized understanding. 12:21:17 Family in waiting room. 12:21:18 Patient NPO since Midnight. 12:21:24 Is the patient allergic to Iodine/contrast media? No. 12:21:24 Was the patient premedicated? Yes 12:21:25 Is patient on blood thinner?Yes 12:21:29 ACC The patient was administered the following blood thiners within the last 24 hours: ACCPlavix 12:21:31 Patient diabetic? No. 12:21:35 Previous problem with sedation/anesthesia? No ? 12:21:37 Snore? Yes 12:21:38 Sleep apnea? No 12:21:39 Deviated septum? No 12:21:39 Opens mouth fully? Yes 12:21:40 Sticks out tongue? Yes 12:21:43 Airway obstruction? Yes copd 12:21:47 Dentures? Yes in tight 12:24:28 Pre procedure: right dorsailis pedis pulse Doppler 12:24:30 Pre procedure: left dorsailis pedis pulse Doppler 12:24:32 Patient pain scale 0/10 ?. 12:24:37 IV patent on arrival in left forearm with 0.9% NaCl at [facility]. 12:24:40 Lab results completed and on chart. 12:24:44 Risk of Mortality: 1.5 12:24:47 Risk of blood transfusion: 3.0 12:24:51 Risk of HUSEYIN: 7.5 12:24:56 Bilateral groins area was prepped with chlora-prep and draped in sterile fashion 12:24:58 Alarms reviewed by RGwendolyn N. 12:24:58 Sharps counted by scrub and verified by R.N. 12:25:04 Physician paged 12:34:04 Physician arrived 12:34:05 --------ALL STOP TIME OUT------ 12:34:05 Final Timeout: patient, procedure, and site verified with staff and physician. All members of the team are in agreement. 12:34:07 Bilateral groins site verified by team. 12:34:11 Fire Safety Assessment: A--An alcohol-based skin anteseptic being used preoperatively., C--Open oxygen or nitrous oxide is being used., D--An ESU, laser, or fiber-optic light is being used. 12:34:14 Physical assessment completed. ASA score P 2 - A patient with mild systemic disease as per Dev Conway MD. 12:34:18 3a) 45-59 Moderately reduced kidney function. 12:34:23 Maximum allowable contrast dose (3.7 X eGFR X 0.75)149 ml. 12:34:28 Sedation plan: IV Moderate Sedation Medication:Versed, Fentanyl 12:34:33 Use device set Femoral Dx 12:34:34 ACIST Syringe (99187) opened to sterile field. 12:34:35 Bag Decanter (2002S) opened to sterile field. 12:34:35 Medline Cath Pack ([id number]) opened to sterile field. 12:34:36 ACIST Hand Control (67744) opened to sterile field. 12:34:37 ACIST Manifold (81680) opened to sterile field. 12:34:37 DIAGNOSTIC Multipack 5Fr catheter set (EN3892) opened to sterile field. 12:34:38 Tegaderm 4 x 4 (1626W) opened to sterile field. 12:34:39 SHEATH 5FR Hartline (AEA114) opened to sterile field. 12:34:40 EMERALD Guide Wire (487-297) opened to sterile field. 12:34:55 Versed 2 mg I.V. was administered by Rubio Short RN; for sedation; Verbal order read back and verified. 12:35:03 Fentanyl 100 mcg I.V. was administered by Rubio Short RN; for sedation; Verbal order read back and verified. 12:36:42 Procedure started. 12:36:46 Local anesthetic to right femoral artery with Lidocaine 2% by Dev Conway MD.INITIAL ACCESS ONLY 12:36:54 A 5 Fr sheath was inserted into the Right Femoral artery 12:37:06 A MULTIPACK Pigtail 5 Fr catheter was advanced over the wire and used for LV Angiography. 12:38:08 Versed 1 mg I.V. was administered by Rubio Short RN; for sedation; Verbal order read back and verified. 12:38:34 LV hemodynamics recorded. 12:38:36 LV gram done using MORIN 12:38:39 Injector settings: Ml/sec: 5, Volume: 15, 12:38:45 EF : 50 % 12:40:50 Abdominal angiogram w/ runoff was performed. 12:40:55 Injector settings: Ml/sec: 10, Volume: 20, 12:40:57 Catheter removed. 12:41:01 A MULTIPACK JL 4.0 5Fr catheter was advanced over the wire and used for Left Coronary Angiography. 12:41:40 LCA angiography performed. 12:41:42 Injector settings: Ml/sec: 3, Volume: 6, 12:42:27 Catheter removed. 12:42:31 A MULTIPACK 3DRC 5Fr catheter was advanced over the wire and used for Right Coronary Angiography. 12:43:55 RCA angiography performed. 12:43:59 Injector settings: Ml/sec: 3, Volume: 6, 12:44:40 Catheter removed. 12:45:01 Proceeding to intervention. 12:46:00 INFLATOR Merit BasixCompak (UY7749) opened to sterile field. 12:46:00 Mcelhattan Verrata Plus pressure wire (52468D) opened to sterile field. 12:46:20 SHEATH 7FR Hartline (EJZ606) opened to sterile field. 12:46:33 Heparin Bolus 4000 units I.V. was administered by Rubio Short RN; for anticoagulation; Verbal order read back and verified. 12:46:33 Sheath upsized to a 7 Fr Short. 12:47:00 GUIDE 7FR AR 2.0 SH catheter ([id number]) opened to sterile field. 12:47:04 ACC Pre-intervention LEONOR Flow is 3. 12:47:18 7 Fr ar 2 sh guide catheter was inserted over the wire 12:47:36 FFR/IFR wire advanced. 12:47:38 Baseline FFR 1. 12:51:02 Wire advanced across lesion. 12:51:05 pRCA lesion measured at 0.77 with IFR 12:52:55 Pre PCI Site: [place] mRCA has 70% stenosis. 12:52:58 Inflate balloon Inflation number: 1 A EUPHORA 4.0 x 20 Balloon ([id number]) was prepped and advanced across the Mid RCA 70, then inflated to 17 TANYA for 0:10 (min:sec) 0. 12:53:20 Inflation number: 1 The EUPHORA 4.0 x 20 Balloon ([id number]) was reinflated across the Prox RCA 70, to 17 TANYA for 0:10 (min:sec) 0. 12:54:06 Inflation number: 2 The EUPHORA 4.0 x 20 Balloon ([id number]) was reinflated across the Prox RCA 0, to 17 TANYA for 0:10 (min:sec) . 12:55:18 Balloon removed over the wire. 12:55:19 Wire removed. 12:55:19 Guide catheter removed. 12:55:31 GUIDE 6FR XBLAD 3.5 catheter ([id number]) opened to sterile field. 12:55:47 CHOICE PT Extra Support 182cm wire ([id number]) opened to sterile field. 12:55:56 6 Fr xblad 3.5 guide catheter was inserted over the wire 12:56:00 choice pt wire advanced. 12:56:53 Wire advanced across lesion. 12:57:51 Pre PCI Site: [place] LMCA has 90% stenosis. 12:58:00 Place stent Inflation Number: 1 A SABINA RX 3.0 x 15 stent ([id number]) was prepped and advanced across the LMCA 90. The stent was deployed at 17 TANYA for 0:10 (min:sec) 0. 12:58:31 Inflation number: 1 The stent balloon was then re-inflated across the Prox CX 90 to 19 TANYA for 0:10 (min:sec) . 12:59:57 Stent catheter was removed intact over wire. 12:59:57 Wire removed. 12:59:58 Guide catheter removed. 13:00:05 EXOSEAL 7Fr (EX700) opened to sterile field. 13:00:35 Sheath removed intact; hemostasis achieved with Exoseal to the Right Femoral artery. 13:01:19 ACT drawn and resulted at 219 seconds. (normal therapeutic range 180-240 seconds). 13:01:27 Procedure ended.(Physican Out) 13:01:30 Fluoroscopy time 06.80 minutes. 13:02:32 Flurop Dose total: 916 13:02:32 Fluoroscopy dose: 916 mGy 13:02:44 Dose Area Product 70539 mGy/cm. 13:02:48 Contrast amount:Isovue 300 137ml. 13:02:51 Maximum allowable dose exceeded? No. 13:02:52 Sharps counted by scrub and verified by R.N. 13:03:03 Post-op/insertion site Right Femoral artery dressed using a 4 x 4 and Tegaderm. 13:03:06 Post procedure rhythm: unchanged. 13:03:08 Estimated blood loss: 5 ml 13:03:09 Post procedure instruction explained to patient.Patient verbalizes understanding. 13:03:10 Patient needs reinforcement of post procedure teaching. 13:04:03 Procedure type changed to Cath procedure, Diagnostic procedure, LHC, C w/Coronaries w/Grafts, FFR/IVUS, FFR Initial, Sedation Charges, Moderate Sedation up to 30 minutes, PCI procedure, Coronary Stent, Coronary Stent Initial, PTCA, PTCA Initial x2, Hemochron ACT Test, Peripheral Cath Diagnostic Procedure, Sound Effects Technician Peripheral Procedures, AFRO (Diagnostic) 13:04:06 Procedure and supply charges have been captured, reviewed, submitted and are correct. 13:04:21 Procedure Complication : No complications 13:04:25 Vital chart was stopped 13:04:28 [facility] Findings: MVD- PCI performed (see procedure note) 13:04:30 Operative report dictated upon procedure completion. 13:04:30 See physician's report for complete and final results. 13:04:34 Report given to [facility] II. 13:04:37 Patient transfered to Med II with Stretcher. 13:05:53 Procedure ended. 13:05:53 Full Disclosure recording stopped 13:06:03 ACC-PCI Only Patient was given prescriptions, or instructed by Dev Conway MD to start/continue the following medications upon discharge: Plavix 13:06:05 End room use (Document Last) Intervention Summary Intervention Notes Time ActionType Lesion and Equipment Used Action# Pressure Duration Attributes 12:52:58 Inflate Mid RCA EUPHORA 4.0 x 1 17 00:10 balloon 20 Balloon ([id number]) 12:53:20 Reinflate Prox RCA EUPHORA 4.0 x 1 17 00:10 balloon 20 Balloon ([id number]) 12:54:06 Reinflate Prox RCA EUPHORA 4.0 x 2 17 00:10 balloon 20 Balloon ([id number]) 12:58:00 Place stent LMCA SABINA RX 3.0 x 1 17 00:10 15 stent ([id number]) 12:58:31 Reinflate Prox CX SABINA RX 3.0 x 1 19 00:10 stent 15 stent balloon ([id number]) Device Usage Item Name Manufacture Quantity Catalog Number Hospital Part Current Minimal Lot# / Charge Number Stock Stock Serial# Code ACIST Syringe Acist 1 57499 297062 689991 120709 20 (41869) Medical Systems Inc Bag Decanter Microtek 1 356197 04761 648303 5 () Medical Inc. Medline Cath Medline 1 [id number] 809061 16903 618455 5 Pack ([id number]) ACIST Hand Acist 1 20702 636913 881421 590265 5 Control Medical (75694) Systems Inc ACIST Manifold Acist 1 83691 687100 873894 415188 5 (18195) Medical Systems Inc DIAGNOSTIC Cardinal 1 SG5692 587782 69351 741350 30 Multipack 5Fr Health catheter set (FE9318) Tegaderm 4 x 4 3M 1 1626W 642597 713091 176946 5 (1626W) SHEATH 5FR Terumo 1 BYF704 416255 767502 665407 5 Hartline (TIG848) EMERALD Guide Cardinal 1 502-455 647896 314457 371884 5 Wire (502-455) Health MULTIPACK Cardinal 1 605432 5 Pigtail 5 Fr Health catheter MULTIPACK JL Cardinal 1 531934 5 4.0 5Fr Health catheter MULTIPACK 3DRC Cardinal 1 710850 5 5Fr catheter Health INFLATOR Merit Merit 1 UZ9964 565110 664280 629745 15 Glassy Pro (CR5711) Mcelhattan Mcelhattan 1 12131D 550678 837597695 706475 5 Verrata Plus pressure wire (99761J) SHEATH 7FR Terumo 1 MXQ014 750168 560034 455756 5 Hartline (SYA107) GUIDE 7FR AR Medtronic 1 [id number] 387098 998967 196910 0 2.0 SH catheter ([id number]) EUPHORA 4.0 x Medtronic 1 [id number] 353047 931929 479886 5 [id number] 20 Balloon ([id number]) GUIDE 6FR Cardinal 1 [id number] 752538 419427 345688 10 XBLAD 3.5 Health catheter (15027754) CHOICE PT Novelty 1 [id number] 016868 893677 309513 5 Extra Support Scientific 182cm wire ([id number]) SABINA RX 3.0 x Medtronic 1 [id number] 248964 0031089 895196 5 [id number] 15 stent ([id number]) EXOSEAL 7Fr Cardinal 1 EX700 751245 959275 541922 5 (EX700) Health Signature Audit [place] Stage Time Signature Unsigned Intra-Procedure 10/14/2019 Linda Meier 1:08:05 PM RT(R) Intra-Procedure 10/14/2019 Rubio 1:08:31 PM Han ELAM Intra-Procedure 10/14/2019 Dev Conway 1:10:40 PM Signatures Performing Physician : Signature : Dev Conway MD Date : Time : Monitor : Linda Meier RT Signature : Date : Time : Nurse : Rubio Short Signature : RN Date : Time : [facility] [address] [place] [address]
--- NOTE | ~2019-10-14 | OP ---
PATIENT NAME: VIBHA ZHONG MEDICAL RECORD: [id number] :54 LOCATION:D.M2 D.2119 ADMISSION DATE: SURGEON: GURWINDER NEELY MD DATE OF OPERATION: 10/14/2019 PROCEDURES: 1. PTCA stent left main. 2. PTCA left circumflex. 3. PTCA RCA. 4. IFR. 5. Left heart catheterization. 6. Selective coronary angiography. 7. Left ventriculogram. INDICATION: Angina and coronary artery disease. PROCEDURE IN DETAIL: After informed consent was obtained and after detailed description of risks, benefits as well as alternative therapy elected to proceed with angiogram and angioplasty. The right femoral area had a preexisting sheath from aortofemoral runoff. All catheters exchanged through this sheath. FINDINGS: The left ventriculogram was performed in standard 30-degree MORIN view, reveals mild global hypokinesis, ejection fraction in the 40% range. SELECTIVE CORONARY ANGIOGRAPHY: 1. Left main has 90% stenosis. 2. The left anterior descending is totally occluded. 3. HZOU to the LAD is widely patent. 4. Left circumflex has a previously placed stent with 90% stenosis as well. Otherwise, circumflex has moderate irregularities, but no flow-limiting stenosis. 5. The right coronary has multiple previously placed stents. There is under deployment of the stent reveling greater than 70% stenosis and IFR was abnormal. PTCA STENT OF THE LEFT MAIN: The stent used was a 3.0 x 15 mm Jack taken to 21 atmospheres. The circumflex was then ballooned with the stent balloon up to 19 atmospheres. Result was 0% residual stenosis of the left main and circumflex. PTCA OF THE RCA: Due to the under deployment of the stents in the RCA, this was ballooned with a 4-0 balloon taken to 17 atmospheres throughout. Result was 0% residual stenosis. OVERALL IMPRESSION: Successful percutaneous transluminal coronary angioplasty stent of the left main and successful PTCA of the circumflex and RCA for in-stent restenosis going from 70%-90% initial stenosis to 0% residual. TRANSINT:[id number] Voice Confirmation ID: [id number] DOCUMENT ID: [id number] OPERATIVE REPORT [id number] VIBHA ZHONG KIMBERLY GURWINDER NEELY MD CC: [id number] DICTATION DATE: 10/14/191641 IMPRESSION PRINTER: 10/14/19 2140 [address] [facility] [address] [place] [address]
--- NOTE | ~2019-10-14 | HP ---
PATIENT: VIBHA ZHONG MEDICAL RECORD: [id number] ACCOUNT: [id number] LOCATION:[facility] : 54 ADMISSION DATE: 10/14/19 PCP: SAMEERA MIXON MD HISTORY AND PHYSICAL EXAMINATION DIAGNOSES: 1. Unstable angina. 2. Coronary artery disease. 3. Status post coronary bypass graft surgery. 4. Status post percutaneous transluminal coronary angioplasty and stent. 5. Claudication. 6. Peripheral vascular disease. 7. Erectile dysfunction. 8. Chronic obstructive pulmonary disease. 9. Smoking. 10. Hypertension. 11. Hyperlipidemia. HISTORY OF PRESENT ILLNESS: This is a gentleman who presents with acute onset of severe shortness of breath and severe chest discomfort this morning. He presented last week with unstable angina, was found to have significant disease of the RCA and underwent multi stents of the RCA. He did well until this morning. He then had extreme shortness of breath and felt like an elephant was sitting on his chest. It improved with medical management here in the Emergency Room, but he is still having the discomfort. His EKG does have T-wave inversions in the inferior leads. He as well as had a history of peripheral vascular disease. He is having lifestyle limiting claudication, relatively severe as well as erectile dysfunction and claudication in his left leg greater than right and that has been worsening as well and has not been addressed recently. PHYSICAL EXAMINATION: CONSTITUTIONAL/GENERAL APPEARANCE: Well nourished, well developed, appears stated age. EYES: Lids and conjunctivae noninjected. No discharge. No pallor. ENT: Lips within normal limit. No cyanosis. No pallor. NECK: Carotid arteries, bilateral normal upstroke. No bruits. No thrills. No jugular venous pressure or distention. CERVICAL LYMPH NODES: Nontender. Nonenlarged. THYROID: Not enlarged. No nodules. CARDIOVASCULAR: Precordial exam, nondisplaced. No heaves or pericardial thrills. Rate and rhythm, regular. Heart sounds, normal S1, normal S2. No S3, no gallop, no rub. Systolic murmur, not heard. Diastolic murmur, not heard. RESPIRATORY: Respiratory effort, unlabored. Normal curvature. No thoracic deformity. No chest wall tenderness. Percussion, resonant. Auscultation, clear. No wheezes, no rales, no rhonchi. ABDOMEN: Soft, nondistended, nontender. No abdominal pain, no vomiting and normal appetite. MUSCULOSKELETAL: No joint tenderness, normal gait, normal tone. SKIN: Warm and dry. IMPRESSION: Unstable angina with a complex stenting of the RCA a week ago and T-wave inversions on EKG with continued chest discomfort and the same symptoms to a worse degree than he had previously. We will perform repeat coronary angiography as well. Due to the claudication we will do aortofemoral runoff. HISTORY AND PHYSICAL [id number] VIBHA ZHONG TRANSINT:[id number] Voice Confirmation ID: [id number] DOCUMENT ID: [id number] GURWINDER NEELY MD CC: [id number] DICTATION DATE: 10/14/19930 COVER OPERATOR: 10/14/19 1001 [facility] [address] [place] [address]
--- NOTE | ~2019-10-14 | OP ---
PATIENT NAME: VIBHA ZHONG MEDICAL RECORD: [id number] :54 LOCATION:D.M2 D.2119 ADMISSION DATE: SURGEON: GURWINDER NEELY MD DATE OF OPERATION: 10/14/2019 PROCEDURES: 1. Aortofemoral runoff. 2. Abdominal aortography. INDICATIONS: Claudication and peripheral vascular disease. PROCEDURE PERFORMED: Informed consent was obtained, after detailed description of risks, benefits as well as alternative therapies, the patient elected to proceed with angiogram and aortofemoral runoff. The right femoral area was prepped and draped in normal sterile fashion. Right femoral artery was cannulated via modified Seldinger technique with placement of 6-[place] sheath. All catheters exchanged through this sheath. FINDINGS: Abdominal aortography was performed. The catheter was pulled down for aortofemoral runoff. Abdominal aortography reveals no significant abdominal aortic disease, no dissection or aneurysm formation. RIGHT LEG: A. Iliac: The common iliac in the distal aspect at the juncture of the internal and external iliac has 70% stenosis. B. Femoral system: The common femoral has a 70% stenosis proximally, followed by multiple areas of greater than 70% stenosis throughout the mid and distal portion of the vessel. C. Popliteal and infrapopliteal vessels are patent with 3-vessel runoff to the foot, although diffusely diseased. LEFT LEG: A. Iliac: The common internal and external iliacs have moderate irregularities but no flow-limiting stenosis. B. Femoral system: The common and deep femoral are widely patent. Superficial femoral has 95% stenosis in the mid distal vessel. C. Popliteal and infrapopliteal vessels are patent with good 3-vessel runoff to the foot, although diffusely diseased. OVERALL IMPRESSION: Critical disease of the left superficial femoral artery that is amenable to transcatheter revascularization, along with multiple areas of the right superficial femoral artery amenable to transcatheter revascularization. TRANSINT:[id number] Voice Confirmation ID: [id number] DOCUMENT ID: [id number] OPERATIVE REPORT [id number] TREVINVIBHA JEFFREY MD CC: [id number] DICTATION DATE: 10/14/19 1640 PICKER TENDER HELPER: 10/14/19 2248 [facility] [address] [place] [address]
--- NOTE | ~2019-10-14 | DS ---
PATIENT:VIBHA ZHONG :54 MEDICAL RECORD: [id number] DISCHARGE SUMMARY ADMISSION DATE: 10/14/19 DISCHARGE DATE: 1. Unstable angina. 2. Coronary artery disease. 3. Percutaneous transluminal coronary angioplasty stent, left main, PTCA, RCA, and circumflex this admission. 4. Peripheral vascular disease. 5. Claudication. 6. Hypertension. 7. Hyperlipidemia. HISTORY: Mr. Zhong presents with unstable anginal symptomatology as well as claudication, underwent cardiac catheterization revealing significant disease of the RCA, left main and left circumflex, underwent transcatheter revascularization of these territories with no further anginal symptomatology. He had claudication symptomatology, underwent aortofemoral runoff revealing significant disease of the left SFA and right iliac. He will be brought back in a staged fashion For PTCA stent of these next week. Continue his current medications as he is already on aspirin and Plavix. TRANSINT:[id number] Voice Confirmation ID: [id number] DOCUMENT ID: [id number] GURWINDER NEELY MD CC: [id number] DICTATION DATE: 10/15/19734 LEGISLATIVE ANALYST: 10/15/19 0742 [facility] [address] [place] [id number]
[~2019-10-14 06:31] MED LIST changes: +NITROQUICK0.4 MG SL
[2019-10-14 07:05] LABS: HEMATOCRIT 36.5 % (42.0-54.0); HEMOGLOBIN 11.9 g/dL (13.5-17.5); MCH 29.5 pg (26.0-34.0); MCHC 32.6 g/dL (31.0-37.0); MCV 90.3 fL (80.0-100.0); MEAN PLATELET VOLUME 8.8 fL (7.4-10.4); RBC 4.04 10x6/uL (4.20-6.10); RDW 13.1 % (11.5-14.5); WBC 12.3 10x3/uL (4.8-10.8)
[2019-10-14 07:09] LABS: PLATELET COUNT 360 10x3/uL (130-400)
[2019-10-14 07:11] LABS: APTT 30.6 SECONDS (22.8-39.4); CALC OSMOLALITY 277 mosm/kg (275-300); CALCIUM 8.9 mg/dL (8.5-10.1); CARBON DIOXIDE 31.6 mmol/L (21.0-32.0); CHLORIDE - SERUM 101 mmol/L (98-107); CREATININE - SERUM 1.4 mg/dL (0.6-1.3); GLUCOSE 117 mg/dL (74-106); INR 1.01 (0.85-1.17); POTASSIUM - SERUM 4.7 mmol/L (3.5-5.1); PROTIME 13.3 SECONDS (11.6-15.0); SODIUM 137 mmol/L (136-145); UREA NITROGEN 22 mg/dL (7-18); eGFR NON AFRICAN AMERICAN 54 mL/min (90-120)
[2019-10-14 07:28] LABS: ALBUMIN 3.3 g/dL (3.4-5.0); ALKALINE PHOSPHATASE 157 U/L (46-116); ALT (SGPT) 18 U/L (10-68); BILIRUBIN - TOTAL 0.39 mg/dL (0.2-1.3); CKMB 1.4 U/L (0.0-3.6); CREATINE KINASE 61 UL (21-232); PRO BNP 1996 pg/mL (0-125); PROTEIN - SERUM 7.7 g/dL (6.4-8.2)
[2019-10-14 11:32] LABS: BASOPHILS 1 % (0-2); EOSINOPHILS 14 % (0-7); LYMPHOCYTES 6 % (15-50); MONOCYTES 11 % (2-11); NEUTROPHILS 67 % (40-80); PLATELET ESTIMATE NORMAL; ROULEAUX OCC
--- NOTE | 2019-10-14 14:00 | NUR ---
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 ALERT AND ORIENTED X4. SINUS PACED ON TELEMETRY 62. RT GROIN DRESSING CLEAN DRY INTACT. FREE FROM BLEEDING. FREE FROM HEMATOMA. INSTRUCT TO KEEP FLAT IN BED FOR 4 HOURS DUE TO INCREASE RISK FOR BLEEDING. VITALS STABLE. PULSE +1 BILATERALLY. REFUSE SCDs. UNABLE TO OBTAIN ACCURATE WEIGHT DUE TO BEDREST. DENIES ANY NEEDS. CONTINUE PLAN OF CARE AND SAFETY PRECAUTIONS.
[2019-10-14 14:07] VITALS: BP 142/73; Ht 182.9 cm; Wt 75.0 kg
--- NOTE | 2019-10-14 19:36 | NUR ---
ASSESSMENT COMPLETE, PT A&O. RESPERATIONS EVEN ON RA. IV TO LEFT AC SL, SITE CLEAN AND DRY. DRSG TO RIGHT GROIN C/D/I. NO BLEEDING, SWELLING OR HEMATOMA NOTED. PEDAL PULSES PRESENT.
[2019-10-14 20:00] VITALS: BP 126/70
[2019-10-15 04:00] VITALS: BP 125/77
--- NOTE | 2019-10-15 04:16 | NUR ---
RESTING WITH EYES CLOSED, RESPERATIONS EVEN, NO S/S DISTRESS NOTED.
[2019-10-15 06:06] LABS: BASOPHILS 0 % (0-2); EOSINOPHILS 0.1 % (0-7); HEMATOCRIT 34.5 % (42.0-54.0); HEMOGLOBIN 11.4 g/dL (13.5-17.5); IMMATURE GRANULOCYTES 0.2 % (0-5); LYMPHOCYTES 9.4 % (15-50); MCH 29.5 pg (26.0-34.0); MCV 89.4 fL (80.0-100.0); MEAN PLATELET VOLUME 8.8 fL (7.4-10.4); MONOCYTES 9.4 % (2-11); NEUTROPHILS 80.9 % (40-80); PLATELET COUNT 360 10x3/uL (130-400); RBC 3.86 10x6/uL (4.20-6.10); RDW 13.2 % (11.5-14.5); WBC 9.3 10x3/uL (4.8-10.8)
[2019-10-15 06:28] LABS: ANION GAP 12.7 mmol/L (8-16); CALCIUM 8.6 mg/dL (8.5-10.1); CARBON DIOXIDE 27.1 mmol/L (21.0-32.0); CREATININE - SERUM 1.2 mg/dL (0.6-1.3); POTASSIUM - SERUM 4.8 mmol/L (3.5-5.1)
--- NOTE | 2019-10-15 07:55 | NUR ---
ASSESSMENT DONE. DENIES NEEDS
--- NOTE | 2019-10-15 08:48 | NUR ---
DC GIVEN TO PT
--- NOTE | 2019-10-15 09:39 | NUR ---
DC HOME PER PERSONAL CAR
== END 2019-10-15 09:39 | disposition home or self-care (01) ==
LOC: D.ER 06:31 → D.CATH 06:31 → EDSTATUS 10:17 → D.M2 13:25 → D.CATH 10-15 09:39
PROVIDERS: Family Medicine; ATTEND Internal Medicine Interventional Cardiology
DX: I25.119 Atherosclerotic heart disease of native coronary artery with unspecified angina pectoris (principal); I73.9 Peripheral vascular disease, unspecified; Z95.0 Presence of cardiac pacemaker; Z95.1 Presence of aortocoronary bypass graft; J44.9 Chronic obstructive pulmonary disease, unspecified
CPT/HCPCS: 92920 ×2; 93571; 93459; C9600

== ENCOUNTER 2019-10-20 19:41 | Inpatient (IN) | payer MEDICARE, MEDICAID ==
[~2019-10-20] VITALS: Ht 182.9 cm; Wt 75.0 kg
--- NOTE | ~2019-10-20 | HEMODYNAMI ---
PATIENT:VIBHA ZHONG MEDICAL RECORD: [id number] : 54 LOCATION:[facility] D2124 [facility]# [id number] ADMISSION DATE: 10/20/19 Generatedon:10/22/201916:47 Patient name: VIBHA ZHONG Patient #: [id number] SSN: [id number] : 1950 Date of study: 10/22/2019 Page: Of Hemodynamic Procedure Report Patient Data Patient Demographics Procedure consent was obtained First Name: VIBHA Gender: Male Last Name: TREVIN : 1950 [facility] Initial: KIMBERLY Age: 69 year(s) Patient #: [id number] Race: SSN: [id number] Additional ID: [id number] Contact details Address: [address] [place] [address] State: [place] City: [place] Zip code: [address] Past Medical History History of disease Date Diagnosis Comments CAD Allergies Allergen Reaction Date Comments Reported Other allergy 07/29/2019 MORPHINE, PCN, LISINOPRIL, HYDROCORTISONE, STATINS Other allergy 10/07/2019 HYDROCORTISONE, LISINOPRIL, MORPHINE, PCN, STATINS Other allergy 10/22/2019 see chart Admission Admission Data Admission Date: 10/20/2019 Admission Time: 22:33 Arrival Date: 10/22/2019 Arrival Time: 0:00 Admit Source: Other Insurance Payor: Medicare, Room #: D.2124 Medicaid HIC #: [id number] Height (in.): 71.65 BSA: 1.98 (m2) Height (cm.): 182 BMI: 23.25 (kg/m2) Weight (lbs.): 169.76 Weight (kg.): 77 Lab Results Lab Result Date: 10/22/2019 Lab Result Time: 0:00 Biochemistry Name Units Result Min Max BUN mg/dl 22 --(----)-* 7 18 Creatinine mg/dl 1.4 --(----)*- 0.6 1.3 eGFR ml/min 54 *-(----)-- 90 120 NONAFRICAN CBC Name Units Result Min Max Hemoglobin g/dl 12.2 *-(----)-- 13.5 17.5 Procedure Procedure Types Cath Procedure Diagnostic Procedure Sedation Charges Moderate Sedation up to 30 minutes PCI Procedure PTCA Hemochron ACT Test Peripheral Cath Diagnostic Procedure Cost Recorder Peripheral Procedures Peripheral vascular Intervention Stent Stent-Fem/Popw/plasty Procedure Description Procedure Date Procedure Date: 10/22/2019 Procedure Start Time: 16:14 Procedure End Time: 16:42 Procedure Staff Name Function Linda Meier RT Monitor Magdi Davenport RN Nurse Dev Conway MD Performing Physician Dee Bonilla RT Scrub Tia Greco RT Monitor Procedure Data Cath Procedure Fluoroscopy Diagnostic fluoroscopy Total fluoroscopy Time: 6.9 time: 6.9 min min Diagnostic fluoroscopy Total fluoroscopy dose: 121 dose: 121 mGy mGy Contrast Material Contrast Material Type Amount (ml) Isovue 370 68 Entry Location Entry Primary Successful Side Size Upsize Upsize Entry Closure Succes sful Closure Location (Fr) 1 (Fr) 2 (Fr) Remarks Device Remarks Femoral Right 6 Fr 6 Fr 6 Fr Exoseal artery Short Long Short Estimated blood loss: 10 ml Diagnostic catheters Device Type Used For End Catheter Placement DIAGNOSTIC IMT 5Fr Multi-vessel Catheter ([id number]) Angiography Procedure Complications No complications Procedure Medications Medication Administration Route Dosage Oxygen etCO2 Nasal cannula 2 l/min Lidocaine 2% added to field 20 Heparin Flush Bag added to field 2 bags (1000units/500ml NS) 0.9% NaCl I.V. 100 ml/hr Versed I.V. 1 mg Fentanyl I.V. 50 mcg Versed I.V. 1 mg Fentanyl I.V. 50 mcg Heparin Bolus I.V. 4000 units Fentanyl I.V. 50 mcg Hemodynamics Rest BSA: 1.98 (m2) HGB: 12.2 (g/dl) O2 Consumption: Estimated: 234.5 (ml/min) O2 Con sumption indexed: Estimated:118.43 (ml/min/m) Heart Rate: 76 (bpm) Snapshots Pre Cath Intra NCS Post Cath Vital Signs Time Heart Resp SPO2 etCO2 NIBP (mmHg) Rhythm Pain Sedation Rate (ipm) (%) (mmHg) Status Level (bpm) 16:05:42 74 20 96 26.1 156/73(116) NSR 0 (11) 10(A) , No pain 16:10:06 62 19 98 28.4 138/68(107) NSR 0 (11) 10(A) , No pain 16:14:25 65 17 96 20.1 139/66(109) NSR 0 (11) 10(A) , No pain 16:18:41 65 14 95 32.8 148/71(112) NSR 0 (11) 9(A) , No pain 16:23:03 59 16 94 17.1 145/65(106) NSR 0 (11) 9(A) , No pain 16:27:21 68 20 95 36.6 147/72(116) NSR 0 (11) 9(A) , No pain 16:31:39 68 19 97 29.1 162/79(124) NSR 0 (11) 10(A) , No pain 16:36:03 68 11 96 32.1 159/74(125) NSR 0 (11) 10(A) , No pain 16:40:27 70 11 96 32.8 152/73(115) NSR 0 (11) 10(A) , No pain Medications Time Medication Route Dose Verified Delivered Reason Notes Effectiveness by by 16:06:08 Oxygen etCO2 2 Dev Buffie used for Nasal l/min Man Davenport RN procedure cannula 16:06:17 Lidocaine 2% added 20ml Dev Buffie for local to vial Man Davenport RN anesthetic field 16:06:23 Heparin Flush added 2 Dev Buffie used for Bag to bags Man Davenport RN procedure (1000units/500ml field NS) 16:06:30 0.9% NaCl I.V. 100 Dev Buffie Per physician ml/hr Man Davenport RN 16:08:21 Versed I.V. 1 mg Dev Buffie for sedation Man Davenport RN 16:08:26 Fentanyl I.V. 50 Dev Buffie for sedation mcg Man Davenport RN 16:13:34 Versed I.V. 1 mg Dev Buffie for sedation Man Davenport RN 16:13:38 Fentanyl I.V. 50 Dev Buffie for sedation mcg Man Davenport RN 16:20:25 Heparin Bolus I.V. 4000 Dev Buffie for units Man Davenport RN anticoagulation 16:27:24 Fentanyl I.V. 50 Dev [place] for sedation verif ied [facility] Man Davenport RN with dr conway Procedure Log Time Note 15:45:07 Magdi Davenport RN sent for patient. Start room use. 16:03:13 Informed consent obtained and on chart 16:03:30 Patient Weight : 169.76 lbs 16:03:30 Patient Height : 71.65 inches 16:04:16 Time tracking: Regular hours (M-F 7:00 - 5:00) 16:04:20 Plan of Care:Hemodynamics will remain stable., Cardiac rhythm will remain stable., Comfort level will be maintained., Respiratory function will remain adequate., Patient/ family verbilizes understanding of procedure., Procedure tolerated without complication., Recovers from procedure without complications.. 16:04:25 Patient received from Med II to CCL 2 Alert and oriented. Tansferred to table in Supine position. 16:04:26 Correct patient and procedure confirmed by team. 16:04:26 Warm blankets applied, and znaa hugger turned on for patient comfort. 16:04:27 ECG and BP/O2 sat monitors applied to patient. 16:04:28 Vital chart was started 16:04:29 Baseline sample Acquired. 16:04:33 Rhythm: sinus rhythm 16:04:34 Full Disclosure recording started 16:04:39 H&P Date Dictated: 10/22/2019 Within 30 days and on chart., H&P Addendum completed by physician on day of procedure. (MUST COMPLETE FOR ALL OUTPATIENTS). 16:04:40 Pre-op teaching completed and patient verbalized understanding. 16:04:40 Pre-procedure instructions explained to patient. 16:04:42 Family in patients room. 16:04:43 Patient NPO since Midnight. 16:04:45 Is the patient allergic to Iodine/contrast media? No. 16:04:46 Was the patient premedicated? Yes 16:04:48 Is patient on blood thinner?Yes 16:04:52 ACC The patient was administered the following blood thiners within the last 24 hours: ACCPlavix 16:04:54 Patient diabetic? No. 16:04:57 Previous problem with sedation/anesthesia? No ? 16:04:58 Snore? Yes 16:05:00 Sleep apnea? No 16:05:01 Deviated septum? No 16:05:06 Opens mouth fully? Yes 16:05:08 Sticks out tongue? Yes 16:05:20 Airway obstruction? Yes copd pneumonia 16:05:29 Dentures? No ? 16:05:33 Pre procedure: right dorsailis pedis pulse 2+ Normal; easily identifiable; not easily obliterated 16:05:35 Pre procedure: left dorsailis pedis pulse 2+ Normal; easily identifiable; not easily obliterated 16:05:37 Patient pain scale 0/10 ?. 16:05:42 IV patent on arrival in left forearm with 0.9% NaCl at [facility]. 16:05:44 Lab results completed and on chart. 16:05:52 Bilateral groins area was prepped with chlora-prep and draped in sterile fashion 16:05:53 Sharps counted by scrub and verified by R.N. 16:05:53 Alarms reviewed by R. N. 16:05:55 Final Timeout: patient, procedure, and site verified with staff and physician. All members of the team are in agreement. 16:05:55 --------ALL STOP TIME OUT------ 16:05:55 Physician arrived 16:05:57 Bilateral groins site verified by team. 16:06:01 Fire Safety Assessment: A--An alcohol-based skin anteseptic being used preoperatively., C--Open oxygen or nitrous oxide is being used., D--An ESU, laser, or fiber-optic light is being used. 16:06:08 Oxygen 2 l/min etCO2 Nasal cannula was administered by Magdi Davenport RN; used for procedure; Verbal order read back and verified. 16:06:14 Physical assessment completed. ASA score P 2 - A patient with mild systemic disease as per Dev Conway MD. 16:06:17 Lidocaine 2% 20ml vial added to field was administered by Magdi Davenport RN; for local anesthetic; Verbal order read back and verified. 16:06:23 Heparin Flush Bag (1000units/500ml NS) 2 bags added to field was administered by Magdi Davenport RN; used for procedure; Verbal order read back and verified. 16:06:30 0.9% NaCl 100 ml/hr I.V. was administered by Magdi Davenport RN; Per physician; Verbal order read back and verified. 16:07:53 Maximum allowable contrast dose (3.7 X eGFR X 0.75)150 ml. 16:07:59 Sedation plan: IV Moderate Sedation Medication:Versed, Fentanyl 16:08:21 Versed 1 mg I.V. was administered by Magdi Davenport RN; for sedation; Verbal order read back and verified. 16:08:26 Fentanyl 50 mcg I.V. was administered by Magdi Davenport RN; for sedation; Verbal order read back and verified. 16:10:42 3a) 45-59 Moderately reduced kidney function. 16:10:50 Use device set CATH PACK 16:10:53 ACIST Manifold (96571) opened to sterile field. 16:10:53 ACIST Hand Control (76035) opened to sterile field. 16:10:53 ACIST Syringe (67528) opened to sterile field. 16:10:54 Bag Decanter (2002S) opened to sterile field. 16:10:54 Medline Cath Pack ([id number]) opened to sterile field. 16:10:55 EMERALD Guide Wire (502-250) opened to sterile field. 16:11:02 SHEATH 6FR [place] (CYD823) opened to sterile field. 16:12:52 Zero performed for pressure channel P1 16:13:34 Versed 1 mg I.V. was administered by Magdi Davenport RN; for sedation; Verbal order read back and verified. 16:13:38 Fentanyl 50 mcg I.V. was administered by Magdi Davenport RN; for sedation; Verbal order read back and verified. 16:14:34 Procedure started. 16:14:38 Local anesthetic to right femoral artery with Lidocaine 2% by Dev Conway MD.INITIAL ACCESS ONLY 16:16:32 A 6 Fr Short sheath was inserted into the Right Femoral artery 16:16:56 SHEATH 6FR Destination (RSR01) opened to sterile field. 16:17:46 GLIDE WIRE Super Stiff Angled 260cm (IX1737) opened to sterile field. 16:18:11 Sheath upsized to a 6 Fr Long. 16:18:42 A DIAGNOSTIC IMT 5Fr Catheter ([id number]) was advanced over the wire and used for Multi-vessel Angiography. 16:18:59 CHOICE PT Extra Support J 300cm guide wire ([id number]) opened to sterile field. 16:20:25 Heparin Bolus 4000 units I.V. was administered by Magdi Davenport RN; for anticoagulation; Verbal order read back and verified. 16:21:03 GLIDE CATHETER 5FR STRAIGHT 100cm (CG506) opened to sterile field. 16::25 choice pt wire advanced. 16:24:25 Wire removed. 16::32 WHISPER 300cm guide wire ([id number]) opened to sterile field. 16::32 whisper wire advanced. 16:27:19 Catheter removed. 16:27:24 Fentanyl 50 mcg I.V. was administered by Magdi Davenport RN; for sedation; verified with dr conway Verbal order read back and verified. 16:28:18 Procedure type changed to Cath procedure, Diagnostic procedure, Sedation Charges, Moderate Sedation up to 30 minutes, PCI procedure, PTCA, Hemochron ACT Test, Peripheral Cath Diagnostic Procedure, Cost Recorder Peripheral Procedures, Peripheral vascular Intervention, Stent, Stent-Fem/Popw/plasty 16:28:49 Inflate balloon Inflation number: 2 A EMERGE OTW 3.5 x 15 balloon ([id number]) was prepped and advanced across the Mid Superficial Femoral, Left , then inflated to 13 TANYA for 0:00 (min:sec) . 16:28:57 Balloon removed over the wire. 16:29:43 Place stent Inflation Number: 1 A SABINA OTW 3.5 x 08 stent ([id number]) was prepped and advanced across the Mid Superficial Femoral, Left . The stent was deployed at 13 TANYA for 0:00 (min:sec) . 16:30:22 Stent catheter was removed intact over wire. 16:30:23 Wire removed. 16:30:54 Sheath removed intact; hemostasis achieved with Exoseal to the Right Femoral artery. 16:30:54 Sheath upsized to a 6 Fr Short. 16:31:55 Procedure ended.(Physican Out) 16:32:32 Fluoroscopy time 06.90 minutes. 16:32:42 Fluoroscopy dose: 121 mGy 16:32:42 Flurop Dose total: 121 16:33:01 Dose Area Product 08867 mGy/cm. 16:33:20 Contrast amount:Isovue 370 68ml. 16:33:23 Maximum allowable dose exceeded? No. 16:33:24 Sharps counted by scrub and verified by R.N. 16:33:34 Post-op/insertion site Right Femoral artery dressed using a 4 x 4 and Tegaderm. 16:35:43 Post right femoral artery:stable, soft, clean and dry 16:35:46 Post Procedure Pulses reassessed and unchanged 16:35:49 Post procedure: right dorsailis pedis pulse 2+ Normal; easily identifiable; not easily obliterated. 16:35:51 Post-procedure physical assessment completed. ASA score P 2 - A patient with mild systemic disease as per Dev Conway MD. 16:35:54 Post procedure rhythm: unchanged. 16:35:58 Estimated blood loss: 10 ml 16:35:59 Post procedure instruction explained to patient.Patient verbalizes understanding. 16:36:00 Patient needs reinforcement of post procedure teaching. 16:36:25 ACT drawn and resulted at 201 seconds. (normal therapeutic range 180-240 seconds). 16:42:28 Procedure and supply charges have been captured, reviewed, submitted and are correct. 16:42:33 Procedure Complication : No complications 16:42:35 Vital chart was stopped 16:42:37 [facility] Findings: MVD- PCI performed (see procedure note) 16:42:38 Operative report dictated upon procedure completion. 16:42:39 See physician's report for complete and final results. 16:42:41 Report given to [facility]. 16:42:45 Patient transfered to [facility] with Bed. 16:42:47 Full Disclosure recording stopped 16:42:47 Procedure ended. 16:43:47 ACC-PCI Only Patient was given prescriptions, or instructed by Dev Conway MD to start/continue the following medications upon discharge: Plavix 16:43:48 End room use (Document Last) 16:44:01 End room use (Document Last) 16:44:35 End room use (Document Last) Intervention Summary Intervention Notes Time ActionType Lesion and Equipment Action# Pressure Duration Attributes Used 16:28:49 Inflate Mid EMERGE OTW 2 13 00:00 balloon Superficial 3.5 x 15 Femoral, balloon Left ([id number]) 16:29:43 Place stent Mid SABINA OTW 3.5 1 13 00:00 Superficial x 08 stent Femoral, ([id number]) Left Device Usage Item Name Manufacture Quantity Catalog Number Hospital Part Current M inimal Lot# / Charge Number Stock Stock Serial# Code ACIST Syringe Acist 1 81930 335270 647661 670052 2 0 (52181) Medical Systems Inc ACIST Hand Acist 1 56273 010400 350571 926880 5 Control Medical (84847) Systems Inc ACIST Acist 1 78052 408937 344628 106080 5 Manifold Medical (79546) Systems Inc Medline Cath Medline 1 [id number] 455140 87018 520785 5 Pack ([id number]) Bag Decanter Microtek 1 2001S 188084 31334 160535 5 (2001S) Medical Inc. EMERALD Guide Cardinal 1 502-455 139690 934334 674416 5 Wire Health (502-455) SHEATH 6FR Terumo 1 HAV139 332624 751259 885383 4 0 [place] (LLI579) SHEATH 6FR Terumo 1 RSR01 847357 29757 069232 5 Destination (RSR01) GLIDE WIRE Terumo 1 KS7528 796783 494079 006509 5 Super Stiff Angled 260cm (SH9028) DIAGNOSTIC [place] 1 [id number] 880270 172327 77056 5 IMT 5Fr Scientific Catheter (421300412) CHOICE PT [place] 1 [id number] 360214 873563 017165 5 Extra Support Scientific J 300cm guide wire ([id number]) GLIDE Terumo 1 CG506 936005 03641 127599 4 CATHETER 5FR STRAIGHT 100cm (CG506) WHISPER 300cm [place] 1 [id number] 284456 337759 171151 5 guide wire Vascular ([id number]) EMERGE OTW [place] 1 [id number] 397362 091436 068023 5 [id number] 3.5 x 15 Scientific balloon ([id number]) SABINA OTW 3.5 Medtronic 1 [id number] 525688 9419745 291534 5 [id number] x 08 stent ([id number]) Signature Audit [place] Stage Time Signature Unsigned Intra-Procedure 10/22/2019 Tia Greco 4:44:01 PM RT(R) Intra-Procedure 10/22/2019 Magdi Davenport RN 4:44:35 PM Intra-Procedure 10/22/2019 Dev Conway MD 4:44:50 PM 10/22/2019 4:46:48 PM Intra-Procedure 10/22/2019 Dev Conway 4:47:50 PM MD Signatures Monitor : Linda Meier RT Signature : Date : Time : Nurse : Magdi Davenport RN Signature : Date : Time : Performing Physician : Signature : Dev Tauth MD Date : Time : Monitor : Tia Young Signature : RT Date : Time : [address] [place] [address]
[2019-10-20 20:31] VITALS: BP 108/67
[2019-10-20 20:54] LABS: BASOPHILS 0.1 % (0-2); HEMATOCRIT 37.4 % (42.0-54.0); HEMOGLOBIN 12.4 g/dL (13.5-17.5); IMMATURE GRANULOCYTES 0.3 % (0-5); LYMPHOCYTES 7.4 % (15-50); MCH 29.2 pg (26.0-34.0); MCHC 33.2 g/dL (31.0-37.0); MCV 88.2 fL (80.0-100.0); MEAN PLATELET VOLUME 8.5 fL (7.4-10.4); MONOCYTES 2.7 % (2-11); NEUTROPHILS 82.5 % (40-80); PLATELET COUNT 353 10x3/uL (130-400); RBC 4.24 10x6/uL (4.20-6.10); RDW 13.3 % (11.5-14.5); WBC 15.8 10x3/uL (4.8-10.8)
[2019-10-20 21:03] LABS: CALC OSMOLALITY 266 mosm/kg (275-300); CALCIUM 8.5 mg/dL (8.5-10.1); CARBON DIOXIDE 28.2 mmol/L (21.0-32.0); CHLORIDE - SERUM 99 mmol/L (98-107); CREATININE - SERUM 1.3 mg/dL (0.6-1.3); GLUCOSE 110 mg/dL (74-106); POTASSIUM - SERUM 4.2 mmol/L (3.5-5.1); SODIUM 131 mmol/L (136-145); UREA NITROGEN 21 mg/dL (7-18); eGFR NON AFRICAN AMERICAN 58 mL/min (90-120)
[2019-10-20 21:04] LABS: APTT 27.1 SECONDS (22.8-39.4); INR 1.02 (0.85-1.17); PROTIME 13.4 SECONDS (11.6-15.0)
[2019-10-20 21:05] LABS: D-DIMER-QUANTITATIVE 0.93 ug/mLFEU (0.20-0.54)
[2019-10-20 21:20] LABS: ALBUMIN 3.4 g/dL (3.4-5.0); ALKALINE PHOSPHATASE 117 U/L (30-120); ALT (SGPT) 20 U/L (10-68); BILIRUBIN - TOTAL 0.26 mg/dL (0.2-1.3); CKMB 1.4 U/L (0.0-3.6); CREATINE KINASE 68 UL (21-232); MAGNESIUM - SERUM 2.1 mg/dL (1.8-2.4); PRO BNP 1948 pg/mL (0-125); PROTEIN - SERUM 7.5 g/dL (6.4-8.2); TROPONIN-I 0.054 ng/mL (0.000-0.060)
--- NOTE | 2019-10-20 22:30 | NUR ---
PT PROVIDED URINAL PER PT REQUEST. PT SITTING ON SIDE OF BED AT THIS TIME. NO S/S OF ACUTE DISTRESS NOTED.
--- NOTE | 2019-10-20 23:06 | NUR ---
LAB CONTACTED, LAB INFORMED RN BLOOD CULTURES X2 HAVE BEEN DRAWN AND ARE IN THE LAB. ABX ADMINISTERED AT THIS TIME.
--- NOTE | 2019-10-20 23:30 | NUR ---
RECEIVED PT FROM ER VIA BED. ALERT AND ORIENTED X4. C/O SOB AND PROD COUGH WITH GREEN SPUTUM. O2 @ 2L/NC. REPORTS PAIN IN NECK, BACK AND SHOULDERS 9 ON PAIN SCALE. MEDICATED WITH DILAUDID IN ER. AMBULATORY. TELEMETERY SHOWS PACED WITH RATE OF 76. NS @ 50 MLHR IN LT AC. BRUISES NOTED TO BUE. DRY SKIN PATCHES TO BLE. NO DISTRESS. VERY TALKATIVE WITH STAFF. SR ELEVATED X2. CL IN REACH.
[2019-10-21] VITALS (7 sets, daily range): BP systolic 131–172; BP diastolic 46–87; BMI 23.0
--- NOTE | 2019-10-21 00:05 | NUR ---
MEDICATED WITH TYLENOL FOR C/O PAIN IN BACK, NECK AND SHOULDERS RATING 9. CL IN REACH.
[2019-10-21 03:27] LABS: CKMB 1.7 U/L (0.0-3.6); CREATINE KINASE 62 UL (21-232); TROPONIN-I 0.038 ng/mL (0.000-0.060)
--- NOTE | 2019-10-21 03:56 | NUR ---
LYING ON LT SIDE IN BED WITH EYES CLOSED. RESP EVEN AND NONLABORED. O2 IN USE @ 2L/NC. NO DISTRESS. HAS RESTED WELL SO FAR. CL IN REACH.
[2019-10-21 09:21] LABS: CKMB 1.7 U/L (0.0-3.6); CREATINE KINASE 56 UL (21-232); TROPONIN-I 0.041 ng/mL (0.000-0.060)
--- NOTE | 2019-10-21 10:12 | NUR ---
650MG OF TYLENOL GIVEN FOR PAIN LEVEL OF 9/10. PT DENIES ANY OTHER NEEDS AT THIS TIME. CALL LIGHT IN REACH, NAD NOTED,WILL CONTINUE TO MONITOR.
--- NOTE | 2019-10-21 11:04 | NUR ---
PT RESTING COMFORTABLY IN BED, DENIES ANY NEEDS AT THIS TIME. CALL LIGHT IN REACH, NAD NOTED,W ILL CONTINUE TO MONITOR.
[2019-10-21 11:16] LABS: ANION GAP 17.3 mmol/L (8-16); CALCIUM 8.8 mg/dL (8.5-10.1); CARBON DIOXIDE 22.6 mmol/L (21.0-32.0); CREATININE - SERUM 1.4 mg/dL (0.6-1.3)
[2019-10-21 11:19] LABS: POTASSIUM - SERUM 4.9 mmol/L (3.5-5.1)
--- NOTE | 2019-10-21 11:53 | NUR ---
RECEIVED CALL BACK FROM DR. JEFF ARRIOLA'S NURSE. NEW ORDER FOR PT TO D/C HOME ON CURRENT MEDICATIONS AND START MACROBID 100MG BID X7 DAYS FOR UTI. F/U WITH OFFICE IN 1 WEEK.
[2019-10-21 11:54] LABS: BASOPHILS 0 % (0-2); EOSINOPHILS 0.3 % (0-7); HEMATOCRIT 36.7 % (42.0-54.0); HEMOGLOBIN 12.2 g/dL (13.5-17.5); LYMPHOCYTES 7.7 % (15-50); MCH 29.3 pg (26.0-34.0); MCHC 33.2 g/dL (31.0-37.0); MEAN PLATELET VOLUME 8.9 fL (7.4-10.4); MONOCYTES 0.8 % (2-11); NEUTROPHILS 91.2 % (40-80); PLATELET COUNT 375 10x3/uL (130-400); RBC 4.17 10x6/uL (4.20-6.10); RDW 13.2 % (11.5-14.5)
--- NOTE | 2019-10-21 12:00 | NUR ---
NORCO GIVEN FOR PAIN LEVEL OF 8/10. PT UP TO CHAIR, DENIES ANY OTHER NEEDS AT THIS TIME. CALL LIGHT IN REACH, NAD NOTED, WILL CONTINUE TO MONITOR.
[2019-10-21 12:10] LABS: WBC 6.4 10x3/uL (4.8-10.8)
--- NOTE | 2019-10-21 19:20 | NUR ---
RECEIVED REPORT, WILL ASSUME CARE OF PT, EXPLAINED WILL BE NPO AFTER MIDNIGHT FOR CATH, DENIES ANY NEEDS AT THIS TIME, BED IS LOW, SRX2, CALL LIGHT IN REACH, WILL CONTINUE PLAN OF CARE
[2019-10-22 00:11] VITALS: BP 184/84
--- NOTE | 2019-10-22 03:49 | NUR ---
I have reviewed this patient and I concur with the Shift Assessment completed by the Licensed Practical Nurse today this shift.
[2019-10-22 03:55] VITALS: BP 189/91
[2019-10-22 05:11] LABS: BASOPHILS 0.1 % (0-2); EOSINOPHILS 0 % (0-7); HEMATOCRIT 34.7 % (42.0-54.0); HEMOGLOBIN 11.7 g/dL (13.5-17.5); IMMATURE GRANULOCYTES 0.2 % (0-5); LYMPHOCYTES 5.8 % (15-50); MCH 29.5 pg (26.0-34.0); MCHC 33.7 g/dL (31.0-37.0); MCV 87.6 fL (80.0-100.0); MEAN PLATELET VOLUME 8.8 fL (7.4-10.4); NEUTROPHILS 89.9 % (40-80); PLATELET COUNT 346 10x3/uL (130-400); RBC 3.96 10x6/uL (4.20-6.10); RDW 13.3 % (11.5-14.5)
[2019-10-22 05:31] LABS: WBC 9.5 10x3/uL (4.8-10.8)
[2019-10-22 05:38] LABS: ANION GAP 12.3 mmol/L (8-16); CALCIUM 8.6 mg/dL (8.5-10.1); CARBON DIOXIDE 26.3 mmol/L (21.0-32.0); CREATININE - SERUM 1.2 mg/dL (0.6-1.3); POTASSIUM - SERUM 4.6 mmol/L (3.5-5.1)
--- NOTE | 2019-10-22 07:15 | NUR ---
ASSESSMENT DONE DENIES NEEDS
[2019-10-22 08:00] VITALS: BP 144/92
--- NOTE | 2019-10-22 10:23 | NUR ---
I have reviewed this patient and I concur with the Shift Assessment completed by the Licensed Practical Nurse today this shift.
[2019-10-22 11:25] VITALS: BP 146/71
--- NOTE | 2019-10-22 11:25 | EC ---
PATIENT:VIBHA ZHONG DATE OF SERVICE: 10/20/19 SEX: M MEDICAL RECORD: [id number] DATE OF : [birth year] LOCATION:D.M2 D.212 AGE OF PATIENT: 69 ADMISSION DATE: 10/20/19 REFERRING PHYSICIAN: INTERPRETING PHYSICIAN: GURWINDER CONWAY MD ECHOCARDIOGRAM REPORT ECHO CHARGES 4 ECHO COMPLETE Date: 10/21/19 CLINICAL DIAGNOSIS: SOB ECHOCARDIOGRAPHIC MEASUREMENTS (adult normal given) AC root (d.<3.7cm) 3.6 cm LV Septum d (<1.2 cm> 1.0 cm Valve Excursion 1.9 cm LV Septum (systole) 1.2 cm Left Atria (s.<4.0cm> 3.7 cm LVPW d(<1.2cm) 1.0 cm RV (d.<2.3cm) 3.0 cm LVPW (sytole) 1.1 cm LV diastole(<5.6CM) 5.1 cm MV E-F(>70mm/sec) cm LV systole 4.0 cm LVOT Diameter 2.5 cm MV exc.(>10mm) cm Est.ejection fraction (50-75%) % DOPPLER: LVIT cm/sec A 101 cm/sec E 99 cm/sec LA cm/sec RVSP 20.4 mmHg LVOT 111 cm/sec AOP1/2T m/s Asc. Ao 172 cm/sec RVOT 90 cm/sec RA cm/sec PA 105 cm/sec AV Gradient Peak 11.9 mmHg AV Mean 5.6 mmHg AV Area 3.5 cm MV Gradient Peak 5.6 mmHg MV Mean 3.3 mmHg MV Area cm COMMENTS: Assistant Banquet Manager: Lorin [facility] Insurance Counsel: 1 Dr. Conway TAPE# PACS Pericardial Effusion N DATE OF SERVICE: Echocardiogram FINDINGS: 1. Left ventricular chamber size is within normal limits. Left ventricular systolic function is normal. Overall ejection fraction estimated at 55%. 2. Left atrium, right atrium, and right ventricular chamber sizes are within normal limits. 3. Valvular structures have normal structure and motion. ECHOCARDIOGRAM REPORT [id number] VIBHA ZHONG 4. Doppler interrogation reveals trace tricuspid regurgitation only. No other valvular insufficiency or stenosis. Pulmonary systolic pressure estimated at 20 mmHg. 5. No evidence of pericardial effusion or left ventricular thrombus. TRANSINT:[id number] Voice Confirmation ID: [id number] DOCUMENT ID: [id number] GURWINDER CONWAY MD at 1125 CC: [id number] DICTATION DATE: 10/21/19 170 INVASIVE PHYSICIAN: 10/22/19 0351 ADM IN [facility] [address] [place] [id number]
--- NOTE | 2019-10-22 11:25 | CN ---
PATIENT NAME:VIBHA ZHONG MEDICAL RECORD: [id number] : 54 LOCATION:D.M2 D.2124 ADMIT DATE: 10/20/19 ACCOUNT: [id number] CONSULTING PHYSICIAN: GURWINDER NEELY MD REFERRING PHYSICIAN: KATHLEEN DAVIS MD DATE OF CONSULTATION: 10/21/2019 DIAGNOSES: 1. Peripheral vascular disease. 2. Claudication. 3. Coronary artery disease. 4. Previous multivessel percutaneous transluminal coronary angioplasty stent. 5. Pneumonia. 6. Shortness of breath. 7. Chest pain. 8. Hypertension. 9. Hyperlipidemia. HISTORY OF PRESENT ILLNESS: Mr. Zhong presents with shortness of breath, found to have multilobar pneumonia last week. He presented with unstable anginal symptomatology. He is found to have 3-vessel coronary artery disease, underwent successful PTCA stent of all territories. He as well had aortofemoral runoff. Has significant disease of his SFAs bilaterally. He was scheduled for a staged POINTING MACHINE OPERATOR stent first being tomorrow; however, he is now being treated for the pneumonia. PHYSICAL EXAMINATION: CONSTITUTIONAL/GENERAL APPEARANCE: Well nourished, well developed, appears stated age. EYES: Lids and conjunctivae noninjected. No discharge. No pallor. ENT: Lips within normal limit. No cyanosis. No pallor. NECK: Carotid arteries, bilateral normal upstroke. No bruits. No thrills. No jugular venous pressure or distention. CERVICAL LYMPH NODES: Nontender. Nonenlarged. THYROID: Not enlarged. No nodules. CARDIOVASCULAR: Precordial exam, nondisplaced. No heaves or pericardial thrills. Rate and rhythm, regular. Heart sounds, normal S1, normal S2. No S3, no gallop, no rub. Systolic murmur, not heard. Diastolic murmur, not heard. RESPIRATORY: Respiratory effort, unlabored. Normal curvature. No thoracic deformity. No chest wall tenderness. Percussion, resonant. Auscultation, clear. No wheezes, no rales, no rhonchi. ABDOMEN: Soft, nondistended, nontender. No abdominal pain, no vomiting and normal appetite. MUSCULOSKELETAL: No joint tenderness, normal gait, normal tone. SKIN: Warm and dry. OVERALL IMPRESSION: Peripheral vascular disease for revascularization. We will do it while he is in the hospital. I am not sure if we will do this tomorrow depending upon his pulmonary status. We will do it when he is stable from standpoint of pulmonary. From a cardiac standpoint, no other treatment or workup is necessary at this time. TRANSINT:[id number] Voice Confirmation ID: [id number] DOCUMENT ID: [id number] CONSULT REPORT [id number] VIBHA ZHONG, GURWINDER RICKETTS at 1125 CC: [id number] DICTATION DATE: 10/21/19 0848 MACHINED PARTS METAL SPRAYER: 10/21/19 1108 ADM IN [place] [id number] [place] [id number]
[2019-10-22 14:37] VITALS: BP 139/70
--- NOTE | 2019-10-22 15:52 | NUR ---
TO PULP MAKING PLANT OPERATOR PER BED
--- NOTE | 2019-10-22 16:55 | NUR ---
RETURN FROM STOCK PARTS INSPECTOR PER BED, RT GROIN C/D/I, PULSE PALP
--- NOTE | 2019-10-22 19:30 | NUR ---
ASSESSMENT COMPLETE, PT A&O. RESPERATIONS EVEN ON RA. IV TO LEFT ARM WITH NS INFUSING AT 50 CC/HR. IV SITE CLEAN AND DRY. DRSG TO RIGHT GROIN C/D/I, NO SWELLING, BLEEDING OR HEMATOMA NOTED. PEDAL PULSES PRESENT. PT CURRENTLY DENIES PAIN OR NEEDS, BED LOW, CL IN REACH.
--- NOTE | 2019-10-22 19:59 | NUR ---
HS MEDS GIVEN WITH FRESH ICE WATER. PT DENIES NEEDS AT THIS TIME.
[2019-10-22 20:00] VITALS: BP 123/55
--- NOTE | 2019-10-22 21:14 | NUR ---
NORCO 1 TAB GIVEN AT PT REQUEST FOR C/O PAIN TO BACK, RATES PAIN AT AN 8 ON PAIN SCALE.
--- NOTE | 2019-10-23 01:15 | NUR ---
I have reviewed this patient and I concur with the Shift Assessment completed by the Licensed Practical Nurse today this shift.
--- NOTE | 2019-10-23 02:01 | NUR ---
RESTING WITH EYES CLOSED, RESPERATIONS EVEN, NO S/S DISTRESS NOTED.
[2019-10-23 04:00] VITALS: BP 170/72
[2019-10-23 06:16] LABS: BASOPHILS 0 % (0-2); EOSINOPHILS 0 % (0-7); HEMATOCRIT 36.2 % (42.0-54.0); IMMATURE GRANULOCYTES 0.5 % (0-5); LYMPHOCYTES 4.6 % (15-50); MCH 29.3 pg (26.0-34.0); MCHC 33.1 g/dL (31.0-37.0); MCV 88.3 fL (80.0-100.0); MEAN PLATELET VOLUME 8.7 fL (7.4-10.4); MONOCYTES 5.1 % (2-11); NEUTROPHILS 89.8 % (40-80); PLATELET COUNT 353 10x3/uL (130-400); RDW 13.5 % (11.5-14.5)
[2019-10-23 06:29] LABS: ANION GAP 11.8 mmol/L (8-16); CALCIUM 8.6 mg/dL (8.5-10.1); CARBON DIOXIDE 28.7 mmol/L (21.0-32.0); CREATININE - SERUM 1.1 mg/dL (0.6-1.3); POTASSIUM - SERUM 4.5 mmol/L (3.5-5.1)
[2019-10-23 08:00] VITALS: BP 161/86
--- NOTE | 2019-10-23 08:23 | NUR ---
AM MEDS GIVEN AT THIS TIME. PT RESTING COMFORTABLY IN BED, LT FA IV INFUSING NS AT 75CC/HR. PT DENIES ANY NEEDS AT THIS TIME. CALL LIGHT IN REACH, NAD NOTED,W ILL CONTINUE TO MONITOR.
--- NOTE | 2019-10-23 09:59 | NUR ---
NORCO GIVEN FOR PAIN LEVEL OF 10/10. DR. CESAR AT BEDSIDE. PT DENIES ANY OTHER NEEDS AT THIS TIME. CALL LIGHT IN REACH, NAD NOTED, WILL CONTINUE TO MONITOR.
--- NOTE | 2019-10-23 11:33 | NUR ---
Rehab Note- Acute Inpatient Rehab prescreen order received. THe patient has [facility] insurance and will require a PreAuth prior to an acute inpatient rehab stay. He has been signed off by PT on 10/20/2019, he is receiveing ST services, will need an OT Eval for PreAuth process. Will follow at this time. Thank you for this referral! Nelly Tinoco RN Clinical Liaison, [facility] Rehab
[2019-10-23 12:00] VITALS: BP 146/81
--- NOTE | 2019-10-23 14:57 | NUR ---
PT GOT IN THE SHOWER, COMPLETE LINEN CHANGE DONE.
--- NOTE | 2019-10-23 15:21 | MORECARE ---
CASE MANAGEMENT DISCHARGE SUMMARY PATIENT: VIBHA ZHONG UNIT: [id number] ADM DATE: 10/20/19 AGE: 69 : 52 SEX: M ROOM/BED: D.2124 AUTHOR: KATHRYN CÁRDENAS PHYSICIAN: REFERRING PHYSICIAN: KATHLEEN DAVIS MD DATE OF SERVICE: 10/23/19 Discharge Plan Patient Name: VIBHA ZHONG [facility] [facility] 1950 Planned Disposition: Home with Home Health Anticipated Discharge Date: 10/23/19 Discharge Date: Expected LOS: 3 Initial Reviewer: [email or web address] Initial Review Date: 10/23/2019 Generated: 10/23/19 4:21 pm DCPIA - Discharge Planning Initial Assessment Updated by [id number]: Hans Banda on 10/23/19 3:16 pm * Is the patient Alert and Oriented? Yes * How many steps to enter\exit or inside your home? * PCP DR. MIXON * Pharmacy [facility] * Preadmission Environment Home with Family * ADLs Independent * Equipment Nebulizer Oxygen * Other Equipment HOME OXYGEN ONLY [facility] PROVIDER * List name and contact numbers for known caregivers / representatives who currently or will assist patient after discharge: JORGE ALBERTO CLAYTON, LIFE PARTNER, * Verbal permission to speak to the caregivers and representatives has been obtained from the patient. N/A * Community resources currently utilized None * Please name any agencies selected above. NONE * Additional services required to return to the preadmission environment? No * Can the patient safely return to the preadmission environment? Yes * Has this patient been hospitalized within the prior 30 days at any hospital? No Patient Name: VIBHA ZHONG Page [id number] at 1521 All edits/amendments must be made on the electronic document DICTATION DATE: 10/23/19 152 MEDICAL EQUIPMENT REPAIRER: CHERY 10/23/19 152 RPT#: [id number] DC DATE: STATUS: ADM IN [facility] [address] [place] [address] END OF REPORT
--- NOTE | 2019-10-23 15:30 | MORECARE ---
CASE MANAGEMENT DISCHARGE SUMMARY PATIENT: VIBHA ZHONG UNIT: [id number] ADM DATE: 10/20/19 AGE: 69 : 52 SEX: M ROOM/BED: D.6144 AUTHOR: AVI,DOC PHYSICIAN: REFERRING PHYSICIAN: KATHLEEN DAVIS MD DATE OF SERVICE: 10/23/19 Discharge Plan Patient Name: VIBHA ZHONG Facility: [facility]:[place] : 1950 Planned Disposition: Home with Home Health Anticipated Discharge Date: 10/23/19 Discharge Date: Expected LOS: 3 Initial Reviewer: [email or web address] Initial Review Date: 10/23/2019 Generated: 10/23/19 4:29 pm Comments DCP- Discharge Planning Updated by [id number]: Hans Banda on 10/23/19 2:[address] Patient Name: VIBHA ZHONG Admission Status: ER Accout number: [id number] Admission Date: 10-20-2019 : 1950 Admission Diagnosis: Attending: KATHLEEN DAVIS Current LOS: 3 Anticipated DC Date: 10-23-2019 Planned Disposition: Home with Home Health Primary Insurance: [facility] MEDICARE SOLUTIONS PLANNED EXTERNAL PROVIDER: [facility] Discharge Planning Comments: CM RECEIVED INPATIENT REHAB PRESCREENING ORDER, REVIEWED CHART, PHYSICAL THERAPY HAS SIGNED OFF INDICATING PT HAS NO SKILLED PHYSICAL THERAPY NEED. CM MET WITH PT IN ROOM TO DISCUSS DISCHARGE PLANNING AND NEEDS. PT IS DRESSED IN HIS CLOTHES, REPORTS HE IS UP INDEPENDENTLY IN ROOM WITOUT ASSISTANCE, ASSISTIVE DEVICE, BALANCE ISSUE OR WEAKNESS AT THIS TIME. PT REPORTS LIVING AT HOME INDEPENDENTLY WITH HIS ADULT BROTHER AND SISTER IN LAW. PT HAS HOME OXYGEN AND NEBULIZER FROM [facility]. PT HAS CURRENT HOME HEALTH WITH [facility] FOR NURSING. CM DISCUSSED AVAILABILITY OF HOME HEALTH, REHAB SERVICES AND MEDICAL EQUIPMENT. PT WOULD LIKE REHAB IF HE WOULD QUALIFY. CM EXPLAINED REVIEW OF CHART AND DISCUSSED PT'S HAVING MANAGED MEDICARE AND REQUIREMENTS FOR REHAB IN FACILITY. PT REPORTS HE PLANS TO GO HOME WITH FAMILY AND WOULD LIKE RESUMPTION OF [facility]. CHOICE SIGNED. PT REPORTS HIS FAMILY WILL PICK HIM UP FOR DISCHARGE HOME. IMPORTANT MESSAGE FROM MEDICARE PROVIDED AND EXPLAINED. CM CALLED [facility], , SPOKE TO KAROLYN WHO CONFIRMED PT TO BE ACTIVE WITH HOME HEALTH, THEY WILL ACCEPT AND RESUME SERVICES AT DISCHARGE. CM FAXED UPTDATE TO [facility] AT [phone]. CM SPOKE TO THERESA OF INPATIENT REHAB AND DISCUSSED CHART REVIEW, THERESA IN AGREEMENT THAT PT APPEARS TO BE TOO HIGH FUNCTIONING FOR INPATIENT REHAB SERVICES. FOR DISCHARGE, NOTIFY [facility], ; FAX DISCHARGE INFORMATION TO [facility], . Consumer Studies Professor: Hans Banda DCPIA - Discharge Planning Initial Assessment Updated by [id number]: Hans Banda on 10/23/19 3:16 pm * Is the patient Alert and Oriented? Yes * How many steps to enter\exit or inside your home? * PCP DR. MIXON * Pharmacy [facility], [address] [place] [address] * Preadmission Environment Home with Family * ADLs Independent * Equipment Nebulizer Oxygen * Other Equipment HOME OXYGEN ONLY [facility] PROVIDER * List name and contact numbers for known caregivers / representatives who currently or will assist patient after discharge: JORGE ALBERTO CLAYTON, LIFE PARTNER, * Verbal permission to speak to the caregivers and representatives has been obtained from the patient. N/A * Community resources currently utilized None * Please name any agencies selected above. NONE * Additional services required to return to the preadmission environment? No * Can the patient safely return to the preadmission environment? Yes * Has this patient been hospitalized within the prior 30 days at any hospital? No External Providers [facility] Next Contact Date: 10/23/2019 Service Request Date: Service Type: Resolution: Reviewer: Comments: Coverage Notice Reviewer: [id number] Mustapha Banda Notice Issued Date-Time: 10/23/2019 11:40 Notice Type: Patient Choice Letter Notice Delivered To: Patient Relationship to Patient: Level Vial Curvature Gauger Name: Delivery Method: HAND - Hand Delivered Iman Days: Prior Verbal Notification: Recipient Understood Notice: Yes Recipient Signature: Yes Med Rec Note Co-signed by Attending: Coverage Notice Comment: [facility] Reviewer: [id number] Mustapha Banda Notice Issued Date-Time: 10/23/2019 11:40 Notice Type: IM Discharge Notice Notice Delivered To: Patient Relationship to Patient: Level Vial Curvature Gauger Name: Delivery Method: HAND - Hand Delivered Iman Days: Prior Verbal Notification: Recipient Understood Notice: Yes Recipient Signature: Yes Med Rec Note Co-signed by Attending: Coverage Notice Comment: Last DP export: 10/23/19 2:21 p Patient Name: VIBHA ZHONG Page [id number] at 1530 All edits/amendments must be made on the electronic document DICTATION DATE: 10/23/19 152 ACCESS ANALYST: CHERY 10/23/19 152 RPT#: [id number] DC DATE: STATUS: ADM IN [facility] [address] [place] [address] END OF REPORT
[2019-10-23 16:00] VITALS: BP 161/86
--- NOTE | 2019-10-23 16:00 | NUR ---
PER DR. FLORES, PT CAN HAVE ROBITUSSIN 5ML Q4PRN FOR COUGH.
--- NOTE | 2019-10-23 16:09 | NUR ---
NORCO GIVEN FOR PAIN LEVEL OF 10/10. ALSO PROVIDED PT WITH A CUP OF ICE WATER. PT DENIES ANY OTHER NEEDS AT THIS TIME.
--- NOTE | 2019-10-23 17:03 | NUR ---
Rehab Note- The patient is too high level physically for inpatient acute rehab at this time. Have spoken with AMALIA Farias. Thank you for this referral! Nelly Tinoco RN Clinical Liaison, [facility] Rehab
[2019-10-23 20:00] VITALS: BP 148/69
[2019-10-24] VITALS: BP 143/77
[2019-10-24 04:00] VITALS: BP 151/82
--- NOTE | 2019-10-24 06:24 | NUR ---
I have reviewed this patient and I concur with the Shift Assessment completed by the Licensed Practical Nurse today this shift.
[2019-10-24 06:55] LABS: BASOPHILS 0 % (0-2); EOSINOPHILS 0 % (0-7); HEMATOCRIT 38.1 % (42.0-54.0); HEMOGLOBIN 12.7 g/dL (13.5-17.5); IMMATURE GRANULOCYTES 0.3 % (0-5); LYMPHOCYTES 6.5 % (15-50); MCH 29.5 pg (26.0-34.0); MCHC 33.3 g/dL (31.0-37.0); MCV 88.6 fL (80.0-100.0); MEAN PLATELET VOLUME 9.1 fL (7.4-10.4); MONOCYTES 4.8 % (2-11); NEUTROPHILS 88.4 % (40-80); PLATELET COUNT 367 10x3/uL (130-400); RDW 13.5 % (11.5-14.5); WBC 11.5 10x3/uL (4.8-10.8)
[2019-10-24 07:32] LABS: ANION GAP 9.6 mmol/L (8-16); CALCIUM 8.5 mg/dL (8.5-10.1); CARBON DIOXIDE 28.8 mmol/L (21.0-32.0); CREATININE - SERUM 1.2 mg/dL (0.6-1.3); POTASSIUM - SERUM 4.4 mmol/L (3.5-5.1)
--- NOTE | 2019-10-24 08:08 | NUR ---
ASSESSMENT DONE. DENIES NEEDS
[2019-10-24 09:08] VITALS: BP 182/86
--- NOTE | 2019-10-24 10:22 | NUR ---
I have reviewed this patient and I concur with the Shift Assessment completed by the Licensed Practical Nurse today this shift.
[2019-10-24] MEDS ORDERED: LEVAQUIN750 MG PO (12:44)
[2019-10-24] MEDS ORDERED: STERAPRED DS 1010 MG PO (12:45)
[2019-10-24 12:51] VITALS: BP 153/65
[2019-10-24 13:54] VITALS: Ht 182.9 cm; Wt 75.0 kg
[2019-10-24 16:40] VITALS: BP 163/72
--- NOTE | 2019-10-24 20:21 | NUR ---
PT RESTING COMFORTABLY IN BED. EVENING ROUNDS COMPLETED. VSS. AAOX4, NO S/S OF DISTRESS. PT C/O PAIN, A 9/10 ON LOWER BACK. WILL ADMINISTER PAIN MEDS. PT DENIES ANY FURTHER NEEDS AT THIS TIME. WILL CPOC. CL WITHIN REACH.
[2019-10-24 20:30] VITALS: BP 157/74
[2019-10-25 00:45] VITALS: BP 129/77
[2019-10-25 04:48] VITALS: BP 145/86
[2019-10-25 06:38] LABS: BASOPHILS 0 % (0-2); EOSINOPHILS 0 % (0-7); HEMATOCRIT 39.5 % (42.0-54.0); HEMOGLOBIN 13.3 g/dL (13.5-17.5); IMMATURE GRANULOCYTES 0.4 % (0-5); LYMPHOCYTES 8.6 % (15-50); MCH 29.6 pg (26.0-34.0); MCHC 33.7 g/dL (31.0-37.0); MCV 87.8 fL (80.0-100.0); MEAN PLATELET VOLUME 9.3 fL (7.4-10.4); MONOCYTES 4.2 % (2-11); NEUTROPHILS 86.8 % (40-80); PLATELET COUNT 384 10x3/uL (130-400); RDW 13.4 % (11.5-14.5); WBC 9.1 10x3/uL (4.8-10.8)
[2019-10-25 07:04] LABS: CALCIUM 8.5 mg/dL (8.5-10.1); CARBON DIOXIDE 27.9 mmol/L (21.0-32.0); CREATININE - SERUM 1.3 mg/dL (0.6-1.3); POTASSIUM - SERUM 4.9 mmol/L (3.5-5.1)
--- NOTE | 2019-10-25 07:47 | NUR ---
REPORT RECEIVED. WILL CONTINUE WITH POC. PT CURRENTLY LYING SEMI FOWLERS. CALL LIGHT W/I REACH. PT IS AAO AND UP AD ZORAIDA. RR EVEN AND UNLABORED ON 2L 02. L.HAND PIV SALINE LOCKED. PT DENIES ANY NEEDS. NO S/S OF DISTRESS NOTED. WILL CTM.
[2019-10-25 09:18] VITALS: BP 176/78
--- NOTE | 2019-10-25 14:29 | NUR ---
PT DISCHARGED HOME VIA AMBULATION. PIV REMOVED WITH CATHETER TIP FULLY INTACT. TELEMETRY REMOVED AND RETURNED. PT SIGNED PROPER DISCHARGE INSTRUCTIONS AND REMOVED ALL VALUABLES FROM THE ROOM.
--- NOTE | 2019-10-25 14:34 | MORECARE ---
CASE MANAGEMENT DISCHARGE SUMMARY PATIENT: VIBHA ZHONG UNIT: [id number] ADM DATE: 10/20/19 AGE: 69 : 52 SEX: M ROOM/BED: D.5801 AUTHOR: KATHRYN CÁRDENAS PHYSICIAN: REFERRING PHYSICIAN: KATHLEEN DAVIS MD DATE OF SERVICE: 10/25/19 Discharge Plan Patient Name: VIBHA ZHONG Facility[facility]:[place] : 1950 Planned Disposition: Home with Home Health Anticipated Discharge Date: 10/25/19 Discharge Date: 10/25/2019 Expected LOS: 5 Initial Reviewer: [id number] Initial Review Date: 10/23/2019 Generated: 10/25/19 3:33 pm Comments DCP- Discharge Planning Updated by [id number]: Hans Banda on 10/25/19 1:[address] Patient Name: VIBHA ZHONG Encounter No: [id number] : 1950 Primary Insurance: C MEDICARE SOLUTIONS Anticipated DC Date: 10-25-2019 Planned Disposition: Home with Home Health External Planned Provider: [facility] Discharge Planning Comments: CM RECEIVED DISCHARGE ORDER, SPOKE TO [place] AND NOTIFIED OF DISCHARGE TODAY FOR HOME HEALTH RESUMPTION. CM FAXED DISCHARGE INFORMATION TO [facility], . PUTTY AND PATCH WORKER NURSE NOTIFIED. Telephone Diaphragm Assembler: Hans Banda DCP- Discharge Planning Updated by [id number]: Hans Banda on 10/23/19 2:[address] Patient Name: VIBHA ZHONG Admission Status: ER Accout number: [id number] Admission Date: 10-20-2019 : 1950 Admission Diagnosis: Attending: KATHLEEN DAVIS Current LOS: 3 Anticipated DC Date: 10-23-2019 Planned Disposition: Home with Home Health Primary Insurance: [facility] MEDICARE SOLUTIONS PLANNED EXTERNAL PROVIDER: [facility] Discharge Planning Comments: CM RECEIVED INPATIENT REHAB PRESCREENING ORDER, REVIEWED CHART, PHYSICAL THERAPY HAS SIGNED OFF INDICATING PT HAS NO SKILLED PHYSICAL THERAPY NEED. CM MET WITH PT IN ROOM TO DISCUSS DISCHARGE PLANNING AND NEEDS. PT IS DRESSED IN HIS CLOTHES, REPORTS HE IS UP INDEPENDENTLY IN ROOM WITOUT ASSISTANCE, ASSISTIVE DEVICE, BALANCE ISSUE OR WEAKNESS AT THIS TIME. PT REPORTS LIVING AT HOME INDEPENDENTLY WITH HIS ADULT BROTHER AND SISTER IN LAW. PT HAS HOME OXYGEN AND NEBULIZER FROM [facility]. PT HAS CURRENT HOME HEALTH WITH [facility] FOR NURSING. CM DISCUSSED AVAILABILITY OF HOME HEALTH, REHAB SERVICES AND MEDICAL EQUIPMENT. PT WOULD LIKE REHAB IF HE WOULD QUALIFY. CM EXPLAINED REVIEW OF CHART AND DISCUSSED PT'S HAVING MANAGED MEDICARE AND REQUIREMENTS FOR REHAB IN FACILITY. PT REPORTS HE PLANS TO GO HOME WITH FAMILY AND WOULD LIKE RESUMPTION OF [facility]. CHOICE SIGNED. PT REPORTS HIS FAMILY WILL PICK HIM UP FOR DISCHARGE HOME. IMPORTANT MESSAGE FROM MEDICARE PROVIDED AND EXPLAINED. CM CALLED [facility], , SPOKE TO KAROLYN WHO CONFIRMED PT TO BE ACTIVE WITH HOME HEALTH, THEY WILL ACCEPT AND RESUME SERVICES AT DISCHARGE. CM FAXED UPTDATE TO [facility] AT [phone]. CM SPOKE TO THERESA OF INPATIENT REHAB AND DISCUSSED CHART REVIEW, THERESA IN AGREEMENT THAT PT APPEARS TO BE TOO HIGH FUNCTIONING FOR INPATIENT REHAB SERVICES. FOR DISCHARGE, NOTIFY [facility], ; FAX DISCHARGE INFORMATION TO [facility], . Telephone Diaphragm Assembler: Hans Banda DCPIA - Discharge Planning Initial Assessment Updated by [id number]: Hans Banda on 10/23/19 3:16 pm * Is the patient Alert and Oriented? Yes * How many steps to enter\exit or inside your home? * PCP DR. MIXON * Pharmacy [facility], [address] [place] [address] * Preadmission Environment Home with Family * ADLs Independent * Equipment Nebulizer Oxygen * Other Equipment HOME OXYGEN ONLY [facility] PROVIDER * List name and contact numbers for known caregivers / representatives who currently or will assist patient after discharge: JORGE ALBERTO CLAYTON, LIFE PARTNER, * Verbal permission to speak to the caregivers and representatives has been obtained from the patient. N/A * Community resources currently utilized None * Please name any agencies selected above. NONE * Additional services required to return to the preadmission environment? No * Can the patient safely return to the preadmission environment? Yes * Has this patient been hospitalized within the prior 30 days at any hospital? No Coverage Notice Reviewer: [id number] - Hans Banda Notice Issued Date-Time: 10/23/2019 11:40 Notice Type: Patient Choice Letter Notice Delivered To: Patient Relationship to Patient: Street Light Lamp Cleaner Name: Delivery Method: HAND - Hand Delivered Iman Days: Prior Verbal Notification: Recipient Understood Notice: Yes Recipient Signature: Yes Med Rec Note Co-signed by Attending: Coverage Notice Comment: [facility] Reviewer: [id number] Mustapha Banda Notice Issued Date-Time: 10/23/2019 11:40 Notice Type: IM Discharge Notice Notice Delivered To: Patient Relationship to Patient: Street Light Lamp Cleaner Name: Delivery Method: HAND - Hand Delivered Iman Days: Prior Verbal Notification: Recipient Understood Notice: Yes Recipient Signature: Yes Med Rec Note Co-signed by Attending: Coverage Notice Comment: Last DP export: 10/23/19 2:30 p Patient Name: VIBHA ZHONG Page [id number] at 1434 All edits/amendments must be made on the electronic document DICTATION DATE: 10/25/19 1433 PATCHER: CHERY 10/25/19 1433 RPT#: [id number] DC DATE:10/25/19 STATUS: DIS IN [facility] [address] [place] [address] END OF REPORT
== END 2019-10-25 14:32 | disposition home health service (06) | DRG 166 ==
LOC: D.ER 19:41 → D.M2 22:33
PROVIDERS: Emergency Medicine; Internal Medicine Interventional Cardiology; ADMIT Internal Medicine Nephrology; ATTEND Internal Medicine Nephrology
PROC: 047L34Z Dilation of Left Femoral Artery with Drug-eluting Intraluminal Device, Percutaneous Approach (ICD-10-PCS; principal; 2019-10-22 11:00)
DX: J18.9 Pneumonia, unspecified organism (principal); I50.31 Acute diastolic (congestive) heart failure; J44.0 Chronic obstructive pulmonary disease with (acute) lower respiratory infection; J44.1 Chronic obstructive pulmonary disease with (acute) exacerbation; N17.9 Acute kidney failure, unspecified; E87.1 Hypo-osmolality and hyponatremia; I70.219 Atherosclerosis of native arteries of extremities with intermittent claudication, unspecified extremity; I11.0 Hypertensive heart disease with heart failure; D64.9 Anemia, unspecified; E78.5 Hyperlipidemia, unspecified; I25.10 Atherosclerotic heart disease of native coronary artery without angina pectoris; Z95.0 Presence of cardiac pacemaker; Z86.73 Personal history of transient ischemic attack (TIA), and cerebral infarction without residual deficits; Z87.891 Personal history of nicotine dependence

== ENCOUNTER 2019-12-14 16:47 | Observation (INO) | payer MEDICARE, MEDICAID ==
[2019-12-14] VITALS: BP 161/89
[~2019-12-14] VITALS: Ht 182.9 cm; Wt 74.8 kg
--- NOTE | ~2019-12-14 | HEMODYNAMI ---
PATIENT:VIBHA ZHONG MEDICAL RECORD: [id number] : 54 LOCATION:[address] [id number] ADMISSION DATE: 12/14/19 Generatedon:12/16/201913:11 Patient name: VIBHA ZHONG Patient #: [id number] SSN: [id number] : 1950 Date of study: 12/16/2019 Page: Of Hemodynamic Procedure Report Patient Data Patient Demographics Procedure consent was obtained First Name: VIBHA Gender: Male Last Name: TREVIN : 1950 [facility] Initial: KIMBERLY Age: 69 year(s) Patient #: [id number] Race: SSN: [id number] Additional ID: [id number] Contact details Address: [address] [place] [address] State: [place] City: [place] Zip code: [address] Past Medical History History of disease Date Diagnosis Comments CAD Allergies Allergen Reaction Date Comments Reported Other 07/29/2019 MORPHINE, PCN, LISINOPRIL, allergy HYDROCORTISONE, STATINS Other 10/07/2019 HYDROCORTISONE, LISINOPRIL, allergy MORPHINE, PCN, STATINS Other 10/22/2019 see chart allergy Other 11/13/2019 STATINS/LISINOPRIL/MORPHINE(SEE allergy lIST) Admission Admission Data Admission Date: 12/14/2019 Admission Time: 18:28 Arrival Date: 12/16/2019 Arrival Time: 0:00 Admit Source: Other Insurance Payor: Medicaid, Room #: D.2123 Medicare HIC #: [id number] Height (in.): 71.65 BSA: 1.96 (m2) Height (cm.): 182 BMI: 22.64 (kg/m2) Weight (lbs.): 165.35 Weight (kg.): 75 Lab Results Lab Result Date: 12/16/2019 Lab Result Time: 0:00 Biochemistry Name Units Result Min Max BUN mg/dl 21 --(----)-* 7 18 Creatinine mg/dl 1.2 --(---*)-- 0.6 1.3 eGFR ml/min 64.75593 *-(----)-- 90 120 NONAFRICAN CBC Name Units Result Min Max Hemoglobin g/dl 12 *-(----)-- 13.5 17.5 Procedure Procedure Types Cath Procedure Diagnostic Procedure LHC LHC w/Coronaries w/Grafts Sedation Charges Moderate Sedation up to 30 minutes Procedure Description Procedure Date Procedure Date: 12/16/2019 Procedure Start Time: 12:50 Procedure End Time: 13:07 Procedure Staff Name Function Travis Jacobo MD Performing Physician Linda Meier RT Monitor Mercedes Bhat RT Scrub Magdi Davenport RN Nurse Procedure Data Cath Procedure Fluoroscopy Diagnostic fluoroscopy Total fluoroscopy Time: 5.8 time: 5.8 min min Diagnostic fluoroscopy Total fluoroscopy dose: 441 dose: 441 mGy mGy Contrast Material Contrast Material Type Amount (ml) Isovue 300 85 Entry Location Entry Primary Successful Side Size Upsize Upsize Entry Closure Succes sful Closure Location (Fr) 1 (Fr) 2 (Fr) Remarks Device Remarks Femoral Right 5 Fr Exoseal artery Estimated blood loss: 5 ml Diagnostic catheters Device Type Used For End Catheter Placement MULTIPACK JL 4.0 5Fr Left Coronary catheter Angiography MULTIPACK 3DRC 5Fr Right Coronary catheter Angiography MULTIPACK Pigtail 5 Fr LV Angiography catheter Procedure Complications No complications Procedure Medications Medication Administration Route Dosage Oxygen etCO2 Nasal cannula 2 l/min Lidocaine 2% added to field 20 Heparin Flush Bag added to field 2 bags (1000units/500ml NS) 0.9% NaCl I.V. 100 ml/hr Versed I.V. 2 mg Fentanyl I.V. 50 mcg Versed I.V. 2 mg Fentanyl I.V. 50 mcg Hemodynamics Rest BSA: 1.96 (m2) HGB: 12 (g/dl) O2 Consumption: Estimated: 220.81 (ml/min) O2 Cons umption indexed: Estimated:112.66 (ml/min/m) Heart Rate: 61 (bpm) Pressure Samples Time Site Value (mmHg) Purpose Heart Use Rate(bpm) 13:03 AO 76/47(60) Snapshot 62 13:05 LV 131/-2,4 Snapshot 60 13:05 AO 131/61(83) Pullback 61 13:05 LV 130/3,4 Pullback 61 Gradients Valve Time Site 1 Site 2 Mean SEP/DFP Peak To Heart Use (mmHg) (sec/min) Peak Rate (mmHg) (bpm) Aortic 13:05 LV AO 0 12 0 61 130/3,4 131/61(83) Calculations Valve P-P Mean Valve Index Valve Source Name Gradient Area Flow (cm2) Aortic 0 0 0 0 Snapshots Pre Cath Intra NCS Post Cath Vital Signs Time Heart Resp SPO2 etCO2 NIBP (mmHg) Rhythm Pain Sedation Rate (ipm) (%) (mmHg) Status Level (bpm) 12:21:22 60 18 96 0.7 175/73(130) NSR 0 (11) 10(A) , No pain 12:25:50 60 15 93 30.2 139/68(105) NSR 0 (11) 10(A) , No pain 12:30:06 61 14 91 30.9 131/64(82) NSR 0 (11) 10(A) , No pain 12:34:18 63 16 96 29.4 141/67(106) NSR 0 (11) 10(A) , No pain 12:38:36 66 13 96 31.7 127/63(94) NSR 0 (11) 10(A) , No pain 12:42:48 63 13 94 31.6 122/64(96) NSR 0 (11) 10(A) , No pain 12:46:56 64 12 95 33.9 124/72(90) NSR 0 (11) 9(A) , No pain 12:51:46 59 15 94 33.2 127/67(101) NSR 0 (11) 9(A) , No pain 12:56:02 61 15 94 23.4 130/56(92) NSR 0 (11) 9(A) , No pain 13:00:17 59 12 95 32.4 127/63(99) NSR 0 (11) 9(A) , No pain 13:04:28 62 13 94 30.9 134/66(99) NSR 0 (11) 10(A) , No pain Medications Time Medication Route Dose Verified Delivered Reason Notes Eff ectiveness by by 12:21:25 Oxygen etCO2 2 Travis Fairbanks used for Nasal l/min St Rigo Davenport clay stain mixer cannula 12:21:33 Lidocaine 2% added 20ml Travis Robles for local to vial St Rigo Jacobo anesthetic field MD RICKETTS 12:21:39 Heparin Flush added 2 Travis Travis used for Bag to bags [facility] procedure (1000units/500ml field MD RICKETTS NS) 12:21:47 0.9% NaCl I.V. 100 Travis Fairbanks Per ml/hr St Rigo Davenport RN physician 12:38:03 Versed I.V. 2 mg Travis Lozoyaie for [facility] Rigo Davenport RN sedation 12:38:09 Fentanyl I.V. 50 Travis Lozoyaie for mcg St Rigo Davenport RN sedation 12:51:01 Versed I.V. 2 mg Travis Lozoyaie for [facility] Rigo Davenport RN sedation 12:51:04 Fentanyl I.V. 50 Travis Lozoyaie for [facility] [place] [facility]igo [facility]enport RN sedation Procedure Log Time Note 12:00:38 Mercedes RUFF(R) sent for patient. Start room use. 12:01:08 Arrival Date: 12/16/2019 12:00:00 AM 12:01:26 Insurance Payor : Medicare, Medicaid 12:01:28 Admit Source: Other 12:01:39 Patient Height : 71.65 inches 12:01:42 Patient Weight : 165.35 lbs 12:18:34 Diagnostic Cath Status : Urgent 12:19:31 Lab Result : eGFR NONAFRICAN 64.72723 ml/min 12:19:31 Lab Result : Hemoglobin 12 g/dl 12:19:31 Lab Result : BUN 21 mg/dl 12:19:31 Lab Result : Creatinine 1.2 mg/dl 12:19:36 Procedure Status Urgent Heart Cath (IP). 12:19:46 Time tracking: Regular hours (M-F 7:00 - 5:00) 12:19:50 Plan of Care:Hemodynamics will remain stable., Cardiac rhythm will remain stable., Comfort level will be maintained., Respiratory function will remain adequate., Patient/ family verbilizes understanding of procedure., Procedure tolerated without complication., Recovers from procedure without complications.. 12:20:03 Patient received from Med II to CCL 2 Alert and oriented. Tansferred to table in Supine position. 12:20:05 Signed procedure consent form obtained from patient. 12:20:05 Warm blankets applied, and zana hugger turned on for patient comfort. 12:20:06 Correct patient and procedure confirmed by team. 12:20:06 ECG and BP/O2 sat monitors applied to patient. 12:20:07 Vital chart was started 12:20:08 Baseline sample Acquired. 12:20:12 Rhythm: sinus rhythm 12:20:13 Full Disclosure recording started 12:20:19 H&P Date Dictated: 12/16/2019 New H&P dictated by physician.. 12:20:21 Pre-procedure instructions explained to patient. 12:20:21 Pre-op teaching completed and patient verbalized understanding. 12:21:25 Oxygen 2 l/min etCO2 Nasal cannula was administered by Magdi Davenport RN; used for procedure; Verbal order read back and verified. 12:21:31 Family in waiting room. 12:21:33 Lidocaine 2% 20ml vial added to field was administered by Travis Jacobo MD; for local anesthetic; Verbal order read back and verified. 12:21:33 Patient NPO since Midnight. 12:21:35 Is the patient allergic to Iodine/contrast media? No. 12:21:39 Heparin Flush Bag (1000units/500ml NS) 2 bags added to field was administered by Travis Jacobo MD; used for procedure; Verbal order read back and verified. 12:21:42 Was the patient premedicated? Yes 12:21:43 Is patient on blood thinner?Yes 12:21:46 ACC The patient was administered the following blood thiners within the last 24 hours: ACCPlavix 12:21:47 0.9% NaCl 100 ml/hr I.V. was administered by Magdi Davenport RN; Per physician; Verbal order read back and verified. 12:22:32 Patient diabetic? No. 12:22:34 Previous problem with sedation/anesthesia? No ? 12:22:36 Snore? Yes 12:22:37 Sleep apnea? Yes 12:22:37 Deviated septum? No 12:22:38 Opens mouth fully? Yes 12:22:39 Sticks out tongue? Yes 12:22:41 Airway obstruction? No ? 12:22:46 Dentures? Yes in tight 12:22:49 Pre procedure: right dorsailis pedis pulse 2+ Normal; easily identifiable; not easily obliterated 12:22:51 Pre procedure: left dorsailis pedis pulse 2+ Normal; easily identifiable; not easily obliterated 12:22:53 Patient pain scale 0/10 ?. 12:22:59 IV patent on arrival in left forearm with 0.9% NaCl at [facility]. 12:23:01 Lab results completed and on chart. 12:24:43 Risk of Mortality: 0.1 12:24:46 Risk of blood transfusion: 0.9 12:24:49 Risk of HUSEYIN: 1.5 12:24:53 Right groin area was prepped with chlora-prep and draped in sterile fashion 12:24:54 Alarms reviewed by R. N. 12:24:54 Sharps counted by scrub and verified by R.N. 12:24:58 Physician arrived 12:24:58 --------ALL STOP TIME OUT------ 12:24:59 Final Timeout: patient, procedure, and site verified with staff and physician. All members of the team are in agreement. 12:25:00 Right groin site verified by team. 12:25:03 Fire Safety Assessment: A--An alcohol-based skin anteseptic being used preoperatively., C--Open oxygen or nitrous oxide is being used., D--An ESU, laser, or fiber-optic light is being used. 12:25:06 Physical assessment completed. ASA score P 2 - A patient with mild systemic disease as per Travis Jacobo MD. 12:25:25 2) 60-89 Mildly reduced kidney function, and other findings (as for stage 1) point to kidney disease. 12:25:28 Maximum allowable contrast dose (3.7 X eGFR X 0.75)177 ml. 12:25:32 Sedation plan: IV Moderate Sedation Medication:Versed, Fentanyl 12:25:36 Use device set Femoral Dx 12:25:37 ACIST Syringe (87510) opened to sterile field. 12:25:37 Bag Decanter (2002S) opened to sterile field. 12:25:38 Medline Cath Pack ([id number]) opened to sterile field. 12:25:39 ACIST Hand Control (30402) opened to sterile field. 12:25:39 ACIST Manifold (77966) opened to sterile field. 12:25:40 DIAGNOSTIC Multipack 5Fr catheter set (PB7704) opened to sterile field. 12:25:40 Tegaderm 4 x 4 (1626W) opened to sterile field. 12:25:41 SHEATH 5FR Ages Brookside (CMH358) opened to sterile field. 12:25:42 EMERALD Guide Wire (152-161) opened to sterile field. 12:26:07 Zero performed for pressure channel P1 12:38:03 Versed 2 mg I.V. was administered by Magdi Davenport RN; for sedation; Verbal order read back and verified. 12:38:09 Fentanyl 50 mcg I.V. was administered by Magdi Davenport RN; for sedation; Verbal order read back and verified. 12:50:49 Procedure started. 12:50:52 Local anesthetic to right femoral artery with Lidocaine 2% by Travis Jacobo MD.INITIAL ACCESS ONLY 12:51:01 Versed 2 mg I.V. was administered by Magdi Davenport RN; for sedation; Verbal order read back and verified. 12:51:02 A 5 Fr sheath was inserted into the Right Femoral artery 12:51:04 Fentanyl 50 mcg I.V. was administered by Magdi Davenport RN; for sedation; Verbal order read back and verified. 12:52:09 A MULTIPACK JL 4.0 5Fr catheter was advanced over the wire and used for Left Coronary Angiography. 12:53:03 LCA angiography performed. 12:53:06 Injector settings: Ml/sec: 3, Volume: 6, 12:54:30 Catheter removed. 12:54:53 A MULTIPACK 3DRC 5Fr catheter was advanced over the wire and used for Right Coronary Angiography. 12:55:09 RCA angiography performed. 12:55:12 Injector settings: Ml/sec: 3, Volume: 6, 12:58:03 GLIDE WIRE ANGLE 260cm (ER6368) opened to sterile field. 13:00:01 glide wire used with 3drc to access left subclavian 13:04:20 ZHOU angiography performed. 13:04:23 Injector settings: Ml/sec: 3, Volume: 6, 13:04:46 Catheter removed. 13:04:49 A MULTIPACK Pigtail 5 Fr catheter was advanced over the wire and used for LV Angiography. 13:05:15 LV hemodynamics recorded. 13:05:16 LV gram done using MORIN 13:05:18 Injector settings: Ml/sec: 5, Volume: 15, 13:05:29 EF : 50 % 13:05:35 Catheter removed. 13:05:40 EXOSEAL 5Fr (EX500) opened to sterile field. 13:06:04 Sheath removed intact; hemostasis achieved with Exoseal to the Right Femoral artery. 13:06:15 Procedure ended.(Physican Out) 13:06:32 Fluoroscopy time 05.80 minutes. 13:06:36 Flurop Dose total: 441 13:06:36 Fluoroscopy dose: 441 mGy 13:06:41 Dose Area Product 60720 mGy/cm. 13:06:44 Contrast amount:Isovue 300 85ml. 13:06:46 Maximum allowable dose exceeded? No. 13:06:51 Sharps counted by scrub and verified by R.N. 13:06:52 Insertion/operative site no bleeding no hematoma. 13:06:55 Post-op/insertion site Right Femoral artery dressed using a 4 x 4 and Tegaderm. 13:06:56 Post Procedure Pulses reassessed and unchanged 13:06:59 Post procedure rhythm: unchanged. 13:07:02 Estimated blood loss: 5 ml 13:07:03 Post procedure instruction explained to patient.Patient verbalizes understanding. 13:07:03 Patient needs reinforcement of post procedure teaching. 13:07:20 Procedure type changed to Cath procedure, Diagnostic procedure, LHC, LHC w/Coronaries w/Grafts, Sedation Charges, Moderate Sedation up to 30 minutes 13:07:22 Procedure and supply charges have been captured, reviewed, submitted and are correct. 13:07:27 Procedure Complication : No complications 13:07:30 Vital chart was stopped 13:07:33 [facility] Findings: MVD- MD will discuss options w/ pt 13:07:35 Operative report dictated upon procedure completion. 13:07:35 See physician's report for complete and final results. 13:07:[address] [facility]. 13:07:[address] [facility] with Stretcher. 13:07:42 Procedure ended. 13:07:42 Full Disclosure recording stopped 13:07:49 End room use (Document Last) 13:08:22 End room use (Document Last) 13:08:56 End room use (Document Last) Device Usage Item Name Manufacture Quantity Catalog Hospital Part Current Minimal L ot# / Number Charge Number Stock Stock Serial# Code ACIST Acist 1 96287 433885 674336 [id number] 20 Elevate (75126) Jeds Barbeque and Brew Bag Microtek 1 236056 11896 131488 5 Decanter Medical Inc. () Medline Medline 1 [id number] 152264 10667 516298 5 Cath Pack ([id number]) ACIST Hand Acist 1 64206 128057 449101 508359 5 Control Medical (29144) Systems Inc ACIST Acist 1 21561 086205 500296 197911 5 Manifold Medical (99205) Systems Inc DIAGNOSTIC Cardinal 1 SK8944 081479 64135 226199 30 Multipack Talentwire 5Fr catheter set (SH1617) Tegaderm 4 3M 1 1626W 209664 475714 060001 5 x 4 (1626W) SHEATH 5FR Terumo 1 GAP110 924156 069135 063607 5 Ages Brookside (PUR430) EMERALD Cardinal 1 483-299 315739 590915 499229 5 Guide Wire Health (014-158) MULTIPACK Cardinal 1 175524 5 JL 4.0 5Fr Health catheter MULTIPACK Cardinal 1 835836 5 3DRC 5Fr Health catheter GLIDE WIRE Terumo 1 ND0627 043199 837113 018108 5 ANGLE 260cm (QD3023) MULTIPACK Cardinal 1 159185 5 Pigtail 5 Health Fr catheter EXOSEAL 5Fr Cardinal 1 EX500 041767 260086 406240 10 (EX500) Health Signature Audit Ferris Stage Time Signature Unsigned Intra-Procedure 12/16/2019 Linda Meier 1:08:22 PM RT(R) Intra-Procedure 12/16/2019 Magdi Davenport RN 1:08:56 PM Intra-Procedure 12/16/2019 Travis Serra 1:11:13 PM Rigo RICKETTS Signatures Performing Physician : Signature : Travis Jacobo MD Date : Time : Monitor : Linda Meier RT Signature : Date : Time : Nurse : Buffie Davenport RN Signature : Date : Time : [place] [address] [place] [address]
[~2019-12-14 16:47] MED LIST changes: +LEVAQUIN750 MG PO; +STERAPRED DS 1010 MG PO
[2019-12-14 17:09] LABS: BASOPHILS 0.3 % (0-2); EOSINOPHILS 0.5 % (0-7); HEMATOCRIT 39.3 % (42.0-54.0); HEMOGLOBIN 12.9 g/dL (13.5-17.5); IMMATURE GRANULOCYTES 0.1 % (0-5); LYMPHOCYTES 9.3 % (15-50); MCH 29.3 pg (26.0-34.0); MCHC 32.8 g/dL (31.0-37.0); MCV 89.3 fL (80.0-100.0); MEAN PLATELET VOLUME 8.4 fL (7.4-10.4); MONOCYTES 2.1 % (2-11); NEUTROPHILS 87.7 % (40-80); PLATELET COUNT 309 10x3/uL (130-400); RDW 13.8 % (11.5-14.5); WBC 7.6 10x3/uL (4.8-10.8)
[2019-12-14 17:18] LABS: APTT 26.5 SECONDS (22.8-39.4); INR 0.96 (0.85-1.17); PROTIME 12.8 SECONDS (11.6-15.0)
[2019-12-14 17:22] LABS: CALCIUM 9.3 mg/dL (8.5-10.1); CARBON DIOXIDE 26.3 mmol/L (21.0-32.0); CHLORIDE - SERUM 98 mmol/L (98-107); CREATININE - SERUM 1.2 mg/dL (0.6-1.3); POTASSIUM - SERUM 4.5 mmol/L (3.5-5.1); SODIUM 133 mmol/L (136-145); UREA NITROGEN 17 mg/dL (7-18); eGFR NON AFRICAN AMERICAN 64 mL/min (90-120)
[2019-12-14 17:35] VITALS: BP 140/67
[2019-12-14 17:37] LABS: ALBUMIN 3.8 g/dL (3.4-5.0); ALKALINE PHOSPHATASE 100 U/L (30-120); ALT (SGPT) 22 U/L (10-68); BILIRUBIN - TOTAL 0.37 mg/dL (0.2-1.3); CKMB 1.2 U/L (0.0-3.6); CREATINE KINASE 100 UL (21-232); MAGNESIUM - SERUM 2.1 mg/dL (1.8-2.4); PROTEIN - SERUM 7.7 g/dL (6.4-8.2)
[2019-12-14 17:49] VITALS: BP 138/62
--- NOTE | 2019-12-14 17:50 | NUR ---
PT REPORTS PAIN IS 3/10 AFTER 1ST NITRO.
--- NOTE | 2019-12-14 17:51 | NUR ---
PT REPORTS TAKING 81 MG ASA AT HOME. PER EDP RADHA, PT TO TAKE 3 MORE 81 MG ASA.
[2019-12-14 18:08] LABS: CALC OSMOLALITY 273 mosm/kg (275-300); GLUCOSE 204 mg/dL (74-106); TROPONIN-I 0.016 ng/mL (0.000-0.060)
[2019-12-14 18:32] VITALS: BP 164/70
[2019-12-14 19:33] VITALS: BP 145/69
--- NOTE | 2019-12-14 21:00 | NUR ---
RECEIVED VIA WHEELCHAIR FROM ER, A&OX4, HISTORY AND MEDS COMPLETE, PLACED ON BMIFLOAT-UO-02, IV-RFA-SL, ASKING FPR SANDWICH AND DRINK, PROVIDED, BED IS LOW, SRX2, CALL LIGHT IN REACH, WILL CONTINUE PLAN OF CARE
--- NOTE | 2019-12-14 22:20 | NUR ---
REQUESTING BODY LOTION, PROVIDED, WILL CONTINUE PLAN OF CARE
[2019-12-14 23:33] LABS: CKMB 0.9 U/L (0.0-3.6); CREATINE KINASE 58 UL (21-232)
[2019-12-14 23:35] LABS: TROPONIN-I 0.016 ng/mL (0.000-0.060)
[2019-12-15 04:00] VITALS: BP 199/88
--- NOTE | 2019-12-15 05:03 | NUR ---
ADMISSION ASSESSMENT COMPLETED.
[2019-12-15 05:04] VITALS: BP 183/87; BMI 22.4
--- NOTE | 2019-12-15 05:37 | NUR ---
I have reviewed this patient and I concur with the Shift Assessment completed by the Licensed Practical Nurse today this shift.
[2019-12-15 06:38] LABS: CKMB 1.1 U/L (0.0-3.6); CREATINE KINASE 58 UL (21-232); TROPONIN-I 0.046 ng/mL (0.000-0.060)
[2019-12-15 07:04] LABS: ALBUMIN 3.6 g/dL (3.4-5.0); ANION GAP 17.2 mmol/L (8-16); BILIRUBIN - TOTAL 0.32 mg/dL (0.2-1.3); CALCIUM 8.9 mg/dL (8.5-10.1); CARBON DIOXIDE 23.6 mmol/L (21.0-32.0); CREATININE - SERUM 1.2 mg/dL (0.6-1.3); POTASSIUM - SERUM 3.8 mmol/L (3.5-5.1); PROTEIN - SERUM 7.6 g/dL (6.4-8.2)
[2019-12-15 08:23] VITALS: BP 155/85
--- NOTE | 2019-12-15 08:56 | NUR ---
PT RESTING IN BED WITH EYES CLOSED. RR EVEN AND UNLABORED. NO S/S OF DISTRESS AT THIS TIME. VSS. BED LOW CALL LIGHT WITHIN REACH. WILL CONTINUE TO MONITOR.
--- NOTE | 2019-12-15 10:32 | NUR ---
PAGED DR. MURRAY. PT REQUEST HYDROCODONE FOR PAIN. PT RECIEVING BATH AT THIS TIME NEW ORDERS ESTABLISHED. WILL CONTINUE TO MONITOR.
--- NOTE | 2019-12-15 10:52 | NUR ---
I have reviewed this patient and I concur with the Shift Assessment completed by the Licensed Practical Nurse today this shift.
[2019-12-15 12:03] LABS: CREATINE KINASE 60 UL (21-232); TROPONIN-I 0.039 ng/mL (0.000-0.060)
[2019-12-15 12:19] VITALS: BP 159/80
[2019-12-15 16:33] VITALS: BP 144/63
--- NOTE | 2019-12-15 19:30 | NUR ---
RECEIVED REPORT, WILL ASSUME CARE OF PT, WATCHING TV, DENIES ANY NEEDS AT THIS TIME, BED IS LOW, SRX2, CALL LIGHT IN REACH, WILL CONTINUE PLAN OF CARE
[2019-12-15 20:00] VITALS: BP 168/71
[2019-12-16] VITALS: BP 132/41
--- NOTE | 2019-12-16 02:39 | NUR ---
I have reviewed this patient and I concur with the Shift Assessment completed by the Licensed Practical Nurse today this shift.
[2019-12-16 04:00] VITALS: BP 183/86
[2019-12-16 05:24] LABS: BASOPHILS 0.8 % (0-2); EOSINOPHILS 10.7 % (0-7); IMMATURE GRANULOCYTES 0.1 % (0-5); LYMPHOCYTES 22.6 % (15-50); MCHC 32.4 g/dL (31.0-37.0); MCV 89.4 fL (80.0-100.0); MEAN PLATELET VOLUME 8.2 fL (7.4-10.4); MONOCYTES 7.7 % (2-11); NEUTROPHILS 58.1 % (40-80); PLATELET COUNT 306 10x3/uL (130-400); RBC 4.14 10x6/uL (4.20-6.10); WBC 7.3 10x3/uL (4.8-10.8)
[2019-12-16 05:43] LABS: ANION GAP 13.2 mmol/L (8-16); CARBON DIOXIDE 26.7 mmol/L (21.0-32.0); CREATININE - SERUM 1.2 mg/dL (0.6-1.3); MAGNESIUM - SERUM 1.9 mg/dL (1.8-2.4); POTASSIUM - SERUM 3.9 mmol/L (3.5-5.1)
--- NOTE | 2019-12-16 07:31 | NUR ---
ASSESSMENT DONE. DENIES NEEDS
[2019-12-16 08:40] VITALS: BP 157/79
--- NOTE | 2019-12-16 09:46 | NUR ---
I have reviewed this patient and I concur with the Shift Assessment completed by the Licensed Practical Nurse today this shift.
[2019-12-16 10:55] VITALS: Ht 182.9 cm; Wt 74.8 kg
[2019-12-16 11:19] LABS: CHOL - HDL RATIO 4.3 ratio (2.3-4.9); LDL-HDL RATIO 2.4 ratio (1.5-3.5)
[2019-12-16 11:54] VITALS: BP 127/64
--- NOTE | 2019-12-16 12:16 | CN ---
PATIENT NAME:VIBHA ZHONG MEDICAL RECORD: [id number] : 54 LOCATION:D. D.2123 ADMIT DATE: 12/14/19 ACCOUNT: [id number] CONSULTING PHYSICIAN: JEFF MURRAY MD REFERRING PHYSICIAN: ARANZA WING MD DATE OF CONSULTATION: 12/15/2019 HISTORY OF PRESENT ILLNESS: A 69-year-old gentleman with a known history of coronary artery disease, status post intervention, has history of hypertension, hyperlipidemia as well peripheral vascular disease, admitted with chest tightness and pressure with exertion, has a history of obstructive pulmonary disease and does report some wheezing and tightness at the same time. Began having rest symptomology yesterday. We are asked to see him concerning his cardiovascular status. PAST MEDICAL HISTORY: Includes: 1. History of obstructive pulmonary disease. 2. Coronary artery disease. 3. Peripheral vascular disease, status post intervention of the right, residual disease of the left. 4. Dyslipidemia. 5. Chronic pain. MEDICATIONS: Typically include albuterol 2 puffs q.4 hours p.r.n., DuoNeb 3 mL q.i.d., Plavix 75 every day, amlodipine 10 mg p.o. every day, carvedilol 12.5 b.i.d., Zetia 10 mg every day, aspirin 81 every day,hydrocortisone 10/325 one every 6 hours p.r.n. ALLERGIES: INCLUDE MORPHINE, HYDROCODONE, HYDROCORTISONE, PENICILLIN, AND STATINS THERAPY. SOCIAL HISTORY: Nonsmoker, nondrinker. No set exercise program. Can take care of his LDLs. REVIEW OF SYSTEMS: The patient reports easy bruising but reports no swollen glands. The patient reports no fever, no night sweats, no significant weight gain, no significant weight loss. No significant exercise tolerance. The patient reports no dry eyes, no irritation, no vision change. Patient reports no difficulty hearing and no ear pain. Patient reports no frequent nose bleeds or nose and sinus problems. Patient reports on arm pain on exertion. No shortness of breath while lying down. No history of heart murmur. Patient reports no cough, no wheezing or coughing up blood. Patient reports no abdominal pain, no vomiting. Normal appetite. No diarrhea and not vomiting blood. No nausea and no constipation. Patient reports no incontinence. No difficulty urinating. No hematuria. No increased frequency. Patient reports no muscle aches. No weakness, no arthralgias, no back pain. No swelling of the extremities. Patient reports no abnormal mole, no jaundice, no rashes. Reports no loss of consciousness. No weakness and no numbness. No seizures, dizziness, or headaches. The patient reports no depression, no sleep disturbance, feeling safe in a relationship and no alcohol abuse. Patient reports on fatigue. Reports no runny nose or sinus pressure. No itching, no hives, and no frequent sneezing. PHYSICAL EXAMINATION: GENERAL: Pleasant gentleman, in no acute distress, appears stated age. CONSULT REPORT [id number] VIBHA ZHONG VITAL SIGNS: Blood pressure 155/85, pulse 73 and regular. HEENT: Normocephalic, atraumatic. NECK: No bruits noted. HEART: Regular, S4 gallops noted. LUNGS: Prolonged respiratory phase, few expiratory wheezes. ABDOMEN: Soft, nontender. EXTREMITIES: Pulses 2+. No edema. NEUROLOGIC: Grossly intact. IMPRESSION: Acute coronary syndrome, maybe demand ischemia related to his underlying obstructive pulmonary disease; however, given clinical history. PLAN: For diagnostic angiography, intervention based on above. TRANSINT:[id number] Voice Confirmation ID: [id number] DOCUMENT ID: [id number] JEFF MURRAY MD at 1216 CC: [id number] DICTATION DATE: 12/15/19 1023 REGISTRAR [employer]ITY: 12/15/19 1205 [place] [address]
--- NOTE | 2019-12-16 15:34 | NUR ---
DC GIVEN TO PT
--- NOTE | 2019-12-16 16:17 | NUR ---
DC HOME PER PERSONAL CAR
--- NOTE | 2019-12-17 08:25 | MORECARE ---
CASE MANAGEMENT DISCHARGE SUMMARY PATIENT: VIBHA ZHONG UNIT: [id number] ADM DATE: 12/14/19 AGE: 69 : 52 SEX: M ROOM/BED: D.2123 AUTHOR: KATHRYN CÁRDENAS PHYSICIAN: REFERRING PHYSICIAN: ARANZA WING MD DATE OF SERVICE: 12/17/19 Discharge Plan Patient Name: VIBHA ZHONG Facility: [facility]:[place] : 1950 Planned Disposition: Home Anticipated Discharge Date: 12/16/19 Discharge Date: 12/16/2019 Expected LOS: 2 Initial Reviewer: [email or web address] Initial Review Date: 12/17/2019 Generated: 12/17/19 9:24 am DCP- Discharge Planning Updated by [email or web address]: Gin Briones on 12/15/19 3:[address] GAINES EXPLAINED AND SIGNED 12/15/19 @ 1624 COPY LEFT WITH PATIENT AT BEDSIDE External Providers External Provider: OTHER-OTHER Next Contact Date: Service Request Date: Service Type: Resolution: Reviewer: Comments: Coverage Notice Reviewer: [email or web address] - Gin Briones Notice Issued Date-Time: 12/15/2019 16:24 Notice Type: Medicare Outpatient Observation Notice Notice Delivered To: Patient Relationship to Patient: Self Regional Hr Manager Name: Delivery Method: HAND - Hand Delivered Iman Days: Prior Verbal Notification: Recipient Understood Notice: Yes Recipient Signature: Yes Med Rec Note Co-signed by Attending: Coverage Notice Comment: Patient Name: VIBHA ZHONG Page [phone] at 0825 All edits/amendments must be made on the electronic document DICTATION DATE: 12/17/19823 HYDRAULIC TECHNICIAN: DM 12/17/19823 RPT#: [id number] DC DATE:12/16/19 STATUS: DIS IN [facility] [address] [place] [address] END OF REPORT
--- NOTE | 2019-12-17 10:37 | OP ---
PATIENT NAME: VIBHA ZHONG MEDICAL RECORD: [id number] :54 LOCATION:D.M2 D.2123 ADMISSION DATE:12/14/19 SURGEON: JEFF MURRAY MD DATE OF OPERATION: 12/16/2019 PROCEDURE: Left heart catheterization, selective coronary angiography, right femoral artery approach. CATHETERS: A 5-Romansh sheath, 5/4 left and right Arnold, 5/4 pig. The procedure was well tolerated. The patient returned to osuna, sheath removed. ExoSeal device placed. FINDINGS: Left ventriculography in 30-degree MORIN view. Normal wall motion and normal systolic function. CORONARY ANATOMY: LEFT MAIN: Left main is free of disease. LDL: Fills for a short period of time, then is seen filling competitive flow via the ZHOU. CIRCUMFLEX: Previously placed stent is widely patent. RIGHT CORONARY ARTERY: The right coronary artery is a dominant artery, gives rise to PDA and previously placed stent is widely patent. ZHOU to LAD, this is widely patent throughout its course without evidence of post-anastomotic stenosis. On pullback, there was a gradient across the subclavian with stenosis in the gradient of 40 mmHg. If claudication becomes more of problem, consider intervention of the subclavian that time. TRANSINT:[id number] Voice Confirmation ID: [id number] DOCUMENT ID: [id number] JEFF MURRAY MD at 1037 CC: [id number] DICTATION DATE: 12/16/19 1319 BAR WAITER/WAITRESS: 12/16/19 1840 DIS IN 12/16/19 [facility] [address] [place] [id number]
== END 2019-12-16 16:17 | disposition home or self-care (01) ==
LOC: D.ER 16:47 → D.M2 18:28 → OBSVTIME 21:00 → D.M2 12-16 16:17
PROVIDERS: Emergency Medicine; Internal Medicine Interventional Cardiology; ADMIT Emergency Medicine; ATTEND Emergency Medicine
DX: I25.110 Atherosclerotic heart disease of native coronary artery with unstable angina pectoris (principal); J44.1 Chronic obstructive pulmonary disease with (acute) exacerbation; I70.219 Atherosclerosis of native arteries of extremities with intermittent claudication, unspecified extremity; I11.0 Hypertensive heart disease with heart failure; I50.33 Acute on chronic diastolic (congestive) heart failure; D64.9 Anemia, unspecified; E78.5 Hyperlipidemia, unspecified; Z95.0 Presence of cardiac pacemaker; Z86.73 Personal history of transient ischemic attack (TIA), and cerebral infarction without residual deficits

== ENCOUNTER 2020-01-31 19:17 | Observation (INO) | payer MEDICARE, MEDICAID ==
[~2020-01-31] VITALS: Ht 182.9 cm; Wt 81.0 kg
[2020-01-31 19:39] LABS: BASOPHILS 0.6 % (0-2); EOSINOPHILS 9.6 % (0-7); HEMATOCRIT 38.9 % (42.0-54.0); HEMOGLOBIN 12.6 g/dL (13.5-17.5); IMMATURE GRANULOCYTES 0.1 % (0-5); LYMPHOCYTES 21.6 % (15-50); MCH 28.8 pg (26.0-34.0); MCHC 32.4 g/dL (31.0-37.0); MEAN PLATELET VOLUME 8.5 fL (7.4-10.4); MONOCYTES 8.3 % (2-11); NEUTROPHILS 59.8 % (40-80); PLATELET COUNT 306 10x3/uL (130-400); RBC 4.37 10x6/uL (4.20-6.10); RDW 13.9 % (11.5-14.5); WBC 6.9 10x3/uL (4.8-10.8)
[2020-01-31 19:47] LABS: CALC OSMOLALITY 275 mosm/kg (275-300); CALCIUM 8.5 mg/dL (8.5-10.1); CHLORIDE - SERUM 99 mmol/L (98-107); CREATININE - SERUM 1.7 mg/dL (0.6-1.3); GLUCOSE 127 mg/dL (74-106); POTASSIUM - SERUM 3.4 mmol/L (3.5-5.1); SODIUM 135 mmol/L (136-145); UREA NITROGEN 23 mg/dL (7-18); eGFR NON AFRICAN AMERICAN 43 mL/min (90-120)
[2020-01-31 20:00] LABS: ALBUMIN 3.8 g/dL (3.4-5.0); ALKALINE PHOSPHATASE 112 U/L (30-120); ALT (SGPT) 19 U/L (10-68); BILIRUBIN - TOTAL 0.26 mg/dL (0.2-1.3); PRO BNP 743 pg/mL (0-125); PROTEIN - SERUM 7.6 g/dL (6.4-8.2); TROPONIN-I < 0.017 ng/mL (0.000-0.060)
--- NOTE | 2020-01-31 20:03 | NUR ---
PT AMBULATED TO RESTROOM INDEPENDENTLY
[2020-01-31 20:25] LABS: APTT 25.2 SECONDS (22.8-39.4); INR 0.98 (0.85-1.17)
--- NOTE | 2020-01-31 21:00 | NUR ---
ADMIT TO ROOM 2120 FROM ER VIA WHEELCHAIR. ALERT/ORIENTED. AMBULATORY TO BED. STATES HE DROVE HIMSELF TO HOSPITAL DUE TO CHEST PAIN. ADMISSION ASSESSMENT AND HISTORY INITIATED. HOME MEDS REVIEWED AND UPDATED. WILL KEEP NPO AFTER MIDNIGHT UNTIL SEEN BY BRIDGE MAINTAINER IN AM.
[2020-02-01] VITALS (7 sets, daily range): BP systolic 121–155; BP diastolic 63–81; Ht 182.9 cm; Wt 81.0 kg
--- NOTE | 2020-02-01 00:51 | NUR ---
TROPONIN LEVEL NOW 0.030. GIVEN IV MORPHINE FOR CHEST PRESSURE EARLIER. SR PER TELEMETRY. CPOC.
--- NOTE | 2020-02-01 07:15 | NUR ---
RECEIVED PT IN BED AAOX4 RESP UNLABORED SKIN W/D COLOR WNL DENIES ANY PAIN OR NEEDS AT THIS TIME
[2020-02-01 14:56] LABS: BILIRUBIN NEGATIVE (NEGATIVE); GLUCOSE NEGATIVE (NEGATIVE); KETONE NEGATIVE (NEGATIVE); NITRITE NEGATIVE (NEGATIVE); UROBILINOGEN NORMAL (NORMAL)
[2020-02-01 16:27] LABS: % SATURATION 16 % (15-55); IRON 47 ug/dl (35-150); TOTAL IRON BIND CAPACITY 277 ug/dl (260-445); UNSAT IRON BIND CAPACITY 230 ug/dl (150-375)
--- NOTE | 2020-02-01 19:05 | NUR ---
BEDSIDE REPORT RECEIVED, PT CARE ASSUMED. INTRODUCED SELF AND WROTE NAME ON BOARD. PT LYING IN BED, WATCHING TV, AAOX4. DENIES ANY NEEDS AT THIS TIME. BED IN LOWEST, SRX1, CALL LIGHT WITHIN REACH. WILL CTM.
[2020-02-02] VITALS: BP 163/73
[2020-02-02 05:51] LABS: HEMATOCRIT 38.1 % (42.0-54.0); HEMOGLOBIN 12.6 g/dL (13.5-17.5); LYMPHOCYTES 21.6 % (15-50); MCHC 33.1 g/dL (31.0-37.0); MCV 87.8 fL (80.0-100.0); MEAN PLATELET VOLUME 8.3 fL (7.4-10.4); PLATELET COUNT 306 10x3/uL (130-400); RBC 4.34 10x6/uL (4.20-6.10); RDW 13.6 % (11.5-14.5); WBC 5.6 10x3/uL (4.8-10.8)
[2020-02-02 05:52] LABS: ANION GAP 10.7 mmol/L (8-16); CALCIUM 8.6 mg/dL (8.5-10.1); CARBON DIOXIDE 26.1 mmol/L (21.0-32.0); CREATININE - SERUM 1.4 mg/dL (0.6-1.3); POTASSIUM - SERUM 3.8 mmol/L (3.5-5.1)
--- NOTE | 2020-02-02 07:00 | NUR ---
RECEIVED REPORT. ASSUMED CARE OF PATIENT. CALL LIGHT WITHIN REACH. PATIENT SITTING UP IN BED WITH ATTENTION TOWARD TELEVISION. DENIES PAIN OR DISCOMFORT. NO DISTRESS. PATIENT IS SR, PACED ON TELEMETRY, RATE OF 68.
--- NOTE | 2020-02-02 07:30 | NUR ---
COFFEE PROVIDED REQUESTED.
[2020-02-02 08:06] VITALS: BP 141/75
[2020-02-02] MEDS ORDERED: PROTONIX40 MG PO (10:31)
--- NOTE | 2020-02-02 11:40 | NUR ---
DISCHARGE INSTRUCTIONS PROVIDED TO PATIENT. PATIENT VERBALIZED UNDERSTANDING OF ALL INSTRUCTIONS PROVIDED. PATIENT INFORMED THIS SIGN OUT CLERK THAT HE DROVE HIMSELF HERE AND HIS CAR IS PARKED OUTSIDE THE ED ENTRANCE. INSTRUCTED PATIENT TO CALL WHEN HE IS DRESSED AND HAS GATHERD ALL PERSONAL BELONGINGS AND READY TO LEAVE THE UNIT.
--- NOTE | 2020-02-02 11:41 | NUR ---
1135 20 GAUGE IV REMOVED FROM RIGHT AC. CATHETER TIP INTACT. NO BLEEDING FROM SITE. 2X2 GAUZE APPLIED AND SECURED WITH BANDAID. TOLERATED IV REMOVAL WELL PATIENT IS BEING DISCHARGED TO HOME.
--- NOTE | 2020-02-02 12:30 | NUR ---
PATIENT LEFT UNIT AT 1215 VIA WHEELCHAIR. PATIENT DISCHARGED TO HOME. PATIENT LEFT UNIT WITH ALL PERSONAL BELONGINGS IN NO ACUTE DISTRESS.
== END 2020-02-02 12:15 | disposition home or self-care (01) ==
LOC: D.ER 19:17 → D.M2 20:31 → OBSVTIME 20:31 → D.M2 20:31
PROVIDERS: Family Medicine; ADMIT Internal Medicine Nephrology; ATTEND Internal Medicine Nephrology
DX: I25.110 Atherosclerotic heart disease of native coronary artery with unstable angina pectoris (principal); D64.9 Anemia, unspecified; N17.9 Acute kidney failure, unspecified; E87.1 Hypo-osmolality and hyponatremia; E87.6 Hypokalemia; J44.1 Chronic obstructive pulmonary disease with (acute) exacerbation; I70.219 Atherosclerosis of native arteries of extremities with intermittent claudication, unspecified extremity; I11.0 Hypertensive heart disease with heart failure; I50.33 Acute on chronic diastolic (congestive) heart failure; E78.5 Hyperlipidemia, unspecified; F17.203 Nicotine dependence unspecified, with withdrawal; Z86.73 Personal history of transient ischemic attack (TIA), and cerebral infarction without residual deficits; Z95.0 Presence of cardiac pacemaker

== ENCOUNTER 2020-02-12 15:48 | Emergency (ER) | payer MEDICARE, MEDICAID ==
[~2020-02-12] VITALS: Ht 182.9 cm; Wt 78.6 kg
[~2020-02-12 15:48] MED LIST changes: +PROTONIX40 MG PO
[2020-02-12 16:09] VITALS: BP 157/76; Ht 182.9 cm; Wt 78.6 kg
[2020-02-12] MEDS ORDERED: PREDNISONE20 MG PO (16:53)
== END 2020-02-12 18:03 | disposition home or self-care (01) ==
LOC: D.ER 15:48
DX: G62.9 Polyneuropathy, unspecified (principal); Z86.73 Personal history of transient ischemic attack (TIA), and cerebral infarction without residual deficits; I11.0 Hypertensive heart disease with heart failure; I50.9 Heart failure, unspecified; Z95.0 Presence of cardiac pacemaker; I25.2 Old myocardial infarction; J44.9 Chronic obstructive pulmonary disease, unspecified; R53.1 Weakness

== ENCOUNTER 2020-03-13 15:15 | Emergency (ER) | payer MEDICARE, MEDICAID ==
[~2020-03-13] VITALS: Ht 182.9 cm; Wt 77.3 kg
[~2020-03-13 15:15] MED LIST changes: +PREDNISONE20 MG PO
[2020-03-13 15:32] VITALS: Ht 182.9 cm; Wt 77.3 kg
[2020-03-13 16:07] LABS: BILIRUBIN NEGATIVE (NEGATIVE); GLUCOSE NEGATIVE (NEGATIVE); KETONE NEGATIVE (NEGATIVE); NITRITE NEGATIVE (NEGATIVE); SPECIFIC GRAVITY 1.015 (1.005-1.020); UROBILINOGEN NORMAL (NORMAL)
[2020-03-13 16:25] LABS: BASOPHILS 0.8 % (0-2); EOSINOPHILS 6.9 % (0-7); HEMATOCRIT 38.4 % (42.0-54.0); HEMOGLOBIN 12.6 g/dL (13.5-17.5); MCH 29.1 pg (26.0-34.0); MCHC 32.8 g/dL (31.0-37.0); MCV 88.7 fL (80.0-100.0); MEAN PLATELET VOLUME 8.5 fL (7.4-10.4); MONOCYTES 12.1 % (2-11); NEUTROPHILS 53.2 % (40-80); PLATELET COUNT 251 10x3/uL (130-400); RBC 4.33 10x6/uL (4.20-6.10); RDW 13.5 % (11.5-14.5); WBC 4.8 10x3/uL (4.8-10.8)
[2020-03-13 16:36] LABS: CALC OSMOLALITY 272 mosm/kg (275-300); CALCIUM 8.5 mg/dL (8.5-10.1); CARBON DIOXIDE 30.7 mmol/L (21.0-32.0); CHLORIDE - SERUM 100 mmol/L (98-107); CREATININE - SERUM 1.9 mg/dL (0.6-1.3); GLUCOSE 85 mg/dL (74-106); POTASSIUM - SERUM 3.2 mmol/L (3.5-5.1); SODIUM 136 mmol/L (136-145); UREA NITROGEN 18 mg/dL (7-18); eGFR NON AFRICAN AMERICAN 38 mL/min (90-120)
[2020-03-13 16:52] LABS: ALBUMIN 3.5 g/dL (3.4-5.0); ALKALINE PHOSPHATASE 122 U/L (30-120); ALT (SGPT) 21 U/L (10-68); AMYLASE - SERUM 80 U/L (25-115); BILIRUBIN - TOTAL 0.43 mg/dL (0.2-1.3); CKMB 1.1 U/L (0.0-3.6); CREATINE KINASE 78 UL (21-232); LIPASE 159 U/L (73-393); TROPONIN-I 0.033 ng/mL (0.000-0.060)
[2020-03-13] MEDS ORDERED: LOMOTIL 2.5-0.1 EAC1 PO (18:52)
[2020-03-13 19:51] VITALS: BP 114/60
== END 2020-03-13 19:51 | disposition home or self-care (01) ==
LOC: D.ER 15:15
PROVIDERS: Family Medicine
DX: A08.4 Viral intestinal infection, unspecified (principal); K92.1 Melena; Z86.73 Personal history of transient ischemic attack (TIA), and cerebral infarction without residual deficits; I11.0 Hypertensive heart disease with heart failure; I50.9 Heart failure, unspecified; I25.2 Old myocardial infarction; Z95.0 Presence of cardiac pacemaker; J44.9 Chronic obstructive pulmonary disease, unspecified; R10.9 Unspecified abdominal pain

== ENCOUNTER 2020-06-03 13:18 | Emergency (ER) | payer MEDICARE, MEDICAID ==
[~2020-06-03] VITALS: Ht 182.9 cm; Wt 72.7 kg
[~2020-06-03 13:18] MED LIST changes: +LOMOTIL 2.5-0.1 EAC1 PO
[2020-06-03 13:47] VITALS: Ht 182.9 cm; Wt 72.7 kg
[2020-06-03 14:52] LABS: BASOPHILS 0.7 % (0-2); EOSINOPHILS 10.8 % (0-7); HEMATOCRIT 38.7 % (42.0-54.0); HEMOGLOBIN 12.9 g/dL (13.5-17.5); LYMPHOCYTES 14.9 % (15-50); MCH 29.5 pg (26.0-34.0); MCHC 33.3 g/dL (31.0-37.0); MCV 88.6 fL (80.0-100.0); MEAN PLATELET VOLUME 8.7 fL (7.4-10.4); MONOCYTES 9.6 % (2-11); PLATELET COUNT 250 10x3/uL (130-400); RBC 4.37 10x6/uL (4.20-6.10); RDW 13.3 % (11.5-14.5); WBC 5.9 10x3/uL (4.8-10.8)
[2020-06-03 15:23] LABS: APTT 26.8 SECONDS (22.8-39.4); INR 0.96 (0.85-1.17); PROTIME 12.7 SECONDS (11.6-15.0)
[2020-06-03 15:28] LABS: CALC OSMOLALITY 264 mosm/kg (275-300); CALCIUM 8.6 mg/dL (8.5-10.1); CARBON DIOXIDE 28.3 mmol/L (21.0-32.0); CHLORIDE - SERUM 97 mmol/L (98-107); CREATININE - SERUM 1.3 mg/dL (0.6-1.3); GLUCOSE 102 mg/dL (74-106); POTASSIUM - SERUM 3.6 mmol/L (3.5-5.1); SODIUM 133 mmol/L (136-145); UREA NITROGEN 10 mg/dL (7-18); eGFR NON AFRICAN AMERICAN 58 mL/min (90-120)
[2020-06-03 15:40] LABS: ALBUMIN 3.9 g/dL (3.4-5.0); ALKALINE PHOSPHATASE 159 U/L (30-120); ALT (SGPT) 17 U/L (10-68); BILIRUBIN - TOTAL 0.58 mg/dL (0.2-1.3); CKMB 1.8 U/L (0.0-3.6); CREATINE KINASE 73 UL (21-232); PRO BNP 588 pg/mL (0-125); PROTEIN - SERUM 7.9 g/dL (6.4-8.2); TROPONIN-I 0.033 ng/mL (0.000-0.060)
[2020-06-03] MEDS ORDERED: OMNICEF300 MG PO (15:56)
[2020-06-03] MEDS ORDERED: PREDNISONE20 MG PO (15:56)
[2020-06-03] MEDS ORDERED: ZPAK PO (15:56)
[2020-06-03 16:43] VITALS: BP 180/86
== END 2020-06-03 16:43 | disposition home or self-care (01) ==
LOC: D.ER 13:18
DX: J44.1 Chronic obstructive pulmonary disease with (acute) exacerbation (principal); D64.9 Anemia, unspecified; I11.0 Hypertensive heart disease with heart failure; I50.9 Heart failure, unspecified; I25.2 Old myocardial infarction; Z86.73 Personal history of transient ischemic attack (TIA), and cerebral infarction without residual deficits; I12.9 Hypertensive chronic kidney disease with stage 1 through stage 4 chronic kidney disease, or unspecified chronic kidney disease; N18.9 Chronic kidney disease, unspecified; R06.00 Dyspnea, unspecified; R79.89 Other specified abnormal findings of blood chemistry; E87.1 Hypo-osmolality and hyponatremia

== ENCOUNTER 2020-06-18 12:35 | Observation (INO) | payer MEDICARE, MEDICAID ==
[2020-06-18] VITALS (7 sets, daily range): BP systolic 129–185; BP diastolic 49–89; Ht 182.9 cm; Wt 74.1 kg
[~2020-06-18] VITALS: Ht 182.9 cm; Wt 74.1 kg
--- NOTE | ~2020-06-18 | EC ---
PATIENT:VIBHA ZHONG DATE OF SERVICE: 06/18/20 SEX: M MEDICAL RECORD: [id number] DATE OF : 54 LOCATION:[place] [id number] AGE OF PATIENT: 70 ADMISSION DATE: 06/18/20 REFERRING PHYSICIAN: INTERPRETING PHYSICIAN: SUSANNA VILLASENRO MD ECHOCARDIOGRAM REPORT ECHO CHARGES 4 ECHO COMPLETE Date: 06/19/20 CLINICAL DIAGNOSIS: CAD, CP ECHOCARDIOGRAPHIC MEASUREMENTS (adult normal given) AC root (d.<3.7cm) 2.4 cm LV Septum d (<1.2 cm> 0.7 cm Valve Excursion 1.5 cm LV Septum (systole) 0.9 cm Left Atria (s.<4.0cm> 3.6 cm LVPW d(<1.2cm) 0.9 cm RV (d.<2.3cm) 2.3 cm LVPW (sytole) 1.0 cm LV diastole(<5.6CM) 6.1 cm MV E-F(>70mm/sec) cm LV systole 5.3 cm LVOT Diameter 1.9 cm MV exc.(>10mm) 1.7 cm Est.ejection fraction (50-75%) % DOPPLER: LVIT cm/sec A 91 cm/sec E 54 cm/sec LA cm/sec RVSP 30 mmHg LVOT 83 cm/sec AOP1/2T m/s Asc. Ao 146 cm/sec RVOT 81 cm/sec RA cm/sec PA 82 cm/sec AV Gradient Peak 8.5 mmHg AV Mean 4.3 mmHg AV Area 1.7 cm MV Gradient Peak 3.4 mmHg MV Mean 1.4 mmHg MV Area cm COMMENTS: Track Car Operator: Lorin BYRNE Telecommunications Switch Technician: 2 Dr. Grant TAPE# PACS Pericardial Effusion N DATE OF SERVICE: CLINICAL DIAGNOSES: Coronary artery disease; chest pain. FINDINGS: Left ventricle has normal left ventricular chamber size and contractile function with ejection fraction of 55% to 60%. Left atrial chamber appears normal. Right atrial chamber appears normal. Right ventricular chamber appears normal. Pacemaker lead visualized in right ventricular chamber. Aortic valve appeared normal. No regurgitation. Mitral valve appears normal. Mild regurgitation. Tricuspid valve appears normal. Trace regurgitation. Pulmonic ECHOCARDIOGRAM REPORT [id number] VIBHA ZHONG valve appears normal. No pulmonic regurgitation. No pericardial effusion visualized. IMPRESSION: Normal left ventricular chamber size and contractile function with ejection fraction 55% to 60%. TRANSINT:[id number] Voice Confirmation ID: [id number] DOCUMENT ID: [id number] SUSANNA VILLASENOR MD CC: [id number] DICTATION DATE: 06/20/20 1131 SENIOR QA ENGINEER: 06/20/20 1248 DIS IN 06/19/20 1910 [place] [id number]
[2020-06-18 12:59] LABS: BASOPHILS 0.6 % (0-2); EOSINOPHILS 15.3 % (0-7); HEMATOCRIT 37.2 % (42.0-54.0); HEMOGLOBIN 12.3 g/dL (13.5-17.5); IMMATURE GRANULOCYTES 0.2 % (0-5); MCH 29.7 pg (26.0-34.0); MCHC 33.1 g/dL (31.0-37.0); MCV 89.9 fL (80.0-100.0); MEAN PLATELET VOLUME 8.7 fL (7.4-10.4); MONOCYTES 10.5 % (2-11); NEUTROPHILS 59.4 % (40-80); PLATELET COUNT 218 10x3/uL (130-400); RBC 4.14 10x6/uL (4.20-6.10); RDW 13.4 % (11.5-14.5); WBC 6.5 10x3/uL (4.8-10.8)
--- NOTE | 2020-06-18 13:05 | NUR ---
REPORT TO PAPA CRANE
[2020-06-18 13:09] LABS: APTT 25.3 SECONDS (22.8-39.4); INR 0.99 (0.85-1.17); PROTIME 13.1 SECONDS (11.6-15.0)
[2020-06-18 13:20] LABS: CALC OSMOLALITY 267 mosm/kg (275-300); CALCIUM 8.4 mg/dL (8.5-10.1); CARBON DIOXIDE 29.9 mmol/L (21.0-32.0); CHLORIDE - SERUM 101 mmol/L (98-107); CREATININE - SERUM 1.4 mg/dL (0.6-1.3); GLUCOSE 106 mg/dL (74-106); POTASSIUM - SERUM 3.4 mmol/L (3.5-5.1); SODIUM 134 mmol/L (136-145); UREA NITROGEN 13 mg/dL (7-18); eGFR NON AFRICAN AMERICAN 53 mL/min (90-120)
[2020-06-18 13:31] LABS: ALBUMIN 3.4 g/dL (3.4-5.0); ALKALINE PHOSPHATASE 106 U/L (30-120); ALT (SGPT) 16 U/L (10-68); BILIRUBIN - TOTAL 0.22 mg/dL (0.2-1.3); CREATINE KINASE 54 UL (21-232); PROTEIN - SERUM 6.7 g/dL (6.4-8.2); TROPONIN-I 0.047 ng/mL (0.000-0.060)
--- NOTE | 2020-06-18 16:58 | NUR ---
PER WILL AT [facility] THE PTS PACEMAKER IS SHOWING ATRIAL PACING AT 60BPM.
--- NOTE | 2020-06-19 01:00 | NUR ---
ASSUMED CARE OF PT AT THIS TIME. NOTED RESTING WITH EYES CLOSED, EVEN RISE AND FALL OF CHEST NOTED. WILL CONTINUE TO MONITOR.
[2020-06-19 01:15] VITALS: BP 128/63
[2020-06-19 02:30] VITALS: BP 130/82
[2020-06-19 03:15] VITALS: BP 136/72
--- NOTE | 2020-06-19 03:15 | NUR ---
PT RESTING RIGHT SIDE LYING POSITION, C/O PAIN LOCATED ON NECK AND BACK. REQUESTING SCHEDULED PAIN MEDICATION. GIVEN PER EMAR. VSS. PT DENIES FURTHER NEEDS, WILL CONTINUE TO MONITOR.
[2020-06-19 04:00] VITALS: BP 154/87
--- NOTE | 2020-06-19 04:46 | NUR ---
PT RESTING ON MONITOR, WILL CONTINUE TO MONITOR.
[2020-06-19 05:00] VITALS: BP 151/76
[2020-06-19 06:00] VITALS: BP 147/67
[2020-06-19 06:43] LABS: BASOPHILS 0.4 % (0-2); EOSINOPHILS 13.7 % (0-7); HEMATOCRIT 41.9 % (42.0-54.0); HEMOGLOBIN 13.7 g/dL (13.5-17.5); IMMATURE GRANULOCYTES 0.1 % (0-5); MCH 29.5 pg (26.0-34.0); MCHC 32.7 g/dL (31.0-37.0); MCV 90.1 fL (80.0-100.0); MEAN PLATELET VOLUME 8.8 fL (7.4-10.4); NEUTROPHILS 64.8 % (40-80); RBC 4.65 10x6/uL (4.20-6.10); RDW 13.4 % (11.5-14.5); WBC 6.7 10x3/uL (4.8-10.8)
[2020-06-19 06:47] LABS: PLATELET COUNT 268 10x3/uL (130-400)
[2020-06-19 07:53] LABS: CALCIUM 9.1 mg/dL (8.5-10.1); CARBON DIOXIDE 28.4 mmol/L (21.0-32.0); CHLORIDE - SERUM 98 mmol/L (98-107); CKMB 1.4 U/L (0.0-3.6); CREATINE KINASE 65 UL (21-232); CREATININE - SERUM 1.2 mg/dL (0.6-1.3); GLUCOSE 100 mg/dL (74-106); MAGNESIUM - SERUM 2.3 mg/dL (1.8-2.4); PHOSPHOROUS 3.1 mg/dL (2.5-4.9); SODIUM 133 mmol/L (136-145); TROPONIN-I 0.035 ng/mL (0.000-0.060); eGFR NON AFRICAN AMERICAN 64 mL/min (90-120)
[2020-06-19 07:54] LABS: CALC OSMOLALITY 264 mosm/kg (275-300); UREA NITROGEN 9 mg/dL (7-18)
== END 2020-06-19 17:00 | disposition home or self-care (01) ==
LOC: D.ER 12:35 → D.EDHOLD 14:03 → OBSVTIME 14:03 → D.EDHOLD 06-19 17:00
PROVIDERS: Family Medicine; ADMIT Family Medicine; ATTEND Family Medicine
DX: J44.9 Chronic obstructive pulmonary disease, unspecified (principal); I25.10 Atherosclerotic heart disease of native coronary artery without angina pectoris; R07.9 Chest pain, unspecified; I12.9 Hypertensive chronic kidney disease with stage 1 through stage 4 chronic kidney disease, or unspecified chronic kidney disease; N18.9 Chronic kidney disease, unspecified; I25.2 Old myocardial infarction; Z86.73 Personal history of transient ischemic attack (TIA), and cerebral infarction without residual deficits; E78.5 Hyperlipidemia, unspecified

== ENCOUNTER 2020-06-28 17:36 | Emergency (ER) | payer MEDICARE, MEDICAID ==
[2020-06-18 16:52] VITALS: BMI 22.1
== END 2020-06-28 18:19 | disposition left against medical advice (07) ==
LOC: D.ER 17:36
DX: M25.551 Pain in right hip (principal)

== ENCOUNTER 2020-07-04 11:51 | Emergency (ER) | payer MEDICARE, MEDICAID ==
[2020-07-04 12:07] VITALS: BP 112/65; Ht 182.9 cm
== END 2020-07-04 14:21 | disposition left against medical advice (07) ==
LOC: D.ER 11:51
DX: M79.604 Pain in right leg (principal)

== ENCOUNTER 2020-07-15 17:02 | Emergency (ER) | payer MEDICARE, MEDICAID ==
[~2020-07-15] VITALS: Ht 182.9 cm; Wt 68.2 kg
[~2020-07-15 17:02] MED LIST changes: +BACTRIM DS TAB1 EAC1 PO
[2020-07-15 17:11] VITALS: Ht 182.9 cm; Wt 68.2 kg
[2020-07-15] MEDS ORDERED: PERCOCET 10-321 EAC1 PO (17:42)
[2020-07-15 18:48] VITALS: BP 118/72
== END 2020-07-15 18:48 | disposition home or self-care (01) ==
LOC: D.ER 17:02
DX: M51.16 Intervertebral disc disorders with radiculopathy, lumbar region (principal); Z86.73 Personal history of transient ischemic attack (TIA), and cerebral infarction without residual deficits; I11.0 Hypertensive heart disease with heart failure; I50.9 Heart failure, unspecified; J44.9 Chronic obstructive pulmonary disease, unspecified; M25.551 Pain in right hip

== ENCOUNTER 2020-12-22 19:40 | Emergency (ER) | payer MEDICARE, MEDICAID ==
[~2020-12-22] VITALS: Ht 182.9 cm; Wt 72.7 kg
[~2020-12-22 19:40] MED LIST changes: +LIORESAL 10 MG10 MG PO; +PERCOCET 10-321 EAC1 PO; +PREDNISONE; +TORADOL; +VOLTAREN25 MG PO; +ZOFRAN ODT4 MG/UDTAB PO
[2020-12-22 19:55] VITALS: Ht 182.9 cm; Wt 72.7 kg
[2020-12-22 20:20] LABS: BASOPHILS 0.3 % (0-2); EOSINOPHILS 3.6 % (0-7); HEMATOCRIT 35.2 % (42.0-54.0); IMMATURE GRANULOCYTES 0.1 % (0-5); LYMPHOCYTE ABS# 1.36 10x3/uL (1.32-3.57); LYMPHOCYTES 20.3 % (15-50); MCH 29.7 pg (26.0-34.0); MCHC 34.1 g/dL (31.0-37.0); MCV 87.1 fL (80.0-100.0); MEAN PLATELET VOLUME 8.8 fL (7.4-10.4); MONOCYTES 6.9 % (2-11); NEUTROPHIL ABS# 4.62 10x3/uL (1.78-5.38); NEUTROPHILS 68.8 % (40-80); PLATELET COUNT 278 10x3/uL (130-400); RBC 4.04 10x6/uL (4.20-6.10); RDW 13.8 % (11.5-14.5); WBC 6.7 10x3/uL (4.8-10.8)
[2020-12-22 20:29] LABS: ANION GAP 13.4 mmol/L (8-16); CALCIUM 8.9 mg/dL (8.5-10.1); CARBON DIOXIDE 23.8 mmol/L (21.0-32.0); CREATININE - SERUM 1.7 mg/dL (0.6-1.3); POTASSIUM - SERUM 3.2 mmol/L (3.5-5.1)
[2020-12-22 20:35] LABS: ALBUMIN 3.5 g/dL (3.4-5.0); BILIRUBIN - TOTAL 0.3 mg/dL (0.2-1.3); PROTEIN - SERUM 7.3 g/dL (6.4-8.2)
[2020-12-22 20:42] VITALS: BP 153/61
[2020-12-22 21:36] LABS: BILIRUBIN NEGATIVE (NEGATIVE); KETONE NEGATIVE (NEGATIVE); NITRITE NEGATIVE (NEGATIVE); UROBILINOGEN NORMAL mg/dL (< 2)
== END 2020-12-22 22:59 | disposition home or self-care (01) ==
LOC: D.ER 19:40
PROVIDERS: Family Medicine
DX: R10.30 Lower abdominal pain, unspecified (principal); N18.9 Chronic kidney disease, unspecified; E11.22 Type 2 diabetes mellitus with diabetic chronic kidney disease; E11.65 Type 2 diabetes mellitus with hyperglycemia; E87.6 Hypokalemia; D63.1 Anemia in chronic kidney disease; Z86.73 Personal history of transient ischemic attack (TIA), and cerebral infarction without residual deficits; I11.0 Hypertensive heart disease with heart failure; I50.9 Heart failure, unspecified; J44.9 Chronic obstructive pulmonary disease, unspecified